=== PATIENT | female | born 1990 | race Caucasian/White ===

== ENCOUNTER 2020-01-08 20:56 | Emergency (ER) | payer MEDICAID, SELFPAY ==
[2020-01-08 20:58] VITALS: BP 134/67; PULSE 91; RESP 20; TEMP 37.2; O2SAT 98; BMI 32.3
--- NOTE | 2020-01-08 21:13 | CT_ITS ---
STUDY: CT BRAIN WITHOUT CONTRAST REASON FOR EXAM: Female, 29 years old. SEIZURE RADIATION DOSAGE (If Supplied By Facility): CTDIvol = ( 44.99 ) mGy, DLP = ( 779.24 ) mGycm TECHNIQUE: Transaxial CT imaging of the brain was performed without administration of intravenous contrast material. Individualized dose optimization techniques were used for this CT. COMPARISON: No relevant priors. FINDINGS: Normal soft tissue structures. Normal calvarium. Normal size ventricles and extra-axial spaces for the patient''s age. Normal white matter tracts of the cerebral hemispheres. Normal basal ganglia and thalami. Normal brainstem. Normal cerebellum. There is no intracranial hemorrhage. There are no findings of an acute ischemic infarction. Bilateral maxillary sinus disease. CT/Brain/Head without Contrast IMPRESSION: Normal unenhanced CT scan of the brain. Comment: If there is clinical concern for a seizure focus that is not apparent by CT, MRI should be considered if possible. Electronically Signed: Earl Saini MD at 21:56 EDT Tel , Service support ,
--- NOTE | 2020-01-08 21:14 | ED.DCSUM_ITS ---
History of Present Illness Chief Complaint: Seizure Informant: Patient, Family Onset: Today Narrative: Patient presents via EMS after abnormal behavior. She was seen at [facility] on the and diagnosed with influenza A. She had had nasal congestion and fever for the past 1 day. She was started on Tamiflu. Mother states she is to complete that medication tomorrow. Tonight she states patient was acting very abnormally. She was lying on the couch and rocking her head back and forth. She states her legs were kind of tucked up behind her and she had a constant motion. She then stated that she wanted to go to bed and got up and went to her bedroom. She had similar type behavior when laying in bed. It does not sound that the patient ever completely lost consciousness. She was able to converse with parents. Past Medical History - Allergies and Home Meds Allergies/Adverse Reactions: Allergies No Known Allergies Allergy (Verified 01/08/20 20:57) Primary Care Physician: Mariela Kan MD [Primary Care Provider] - Past Medical History: - - MRDD, anemia, cirrhosis Lives: With Family Smoking Status: Never smoker Review of Systems General: Denies: Chills, Fever Eyes: Denies: Visual changes - bilaterally ENT: Denies: Bilateral ear pain Cardiovascular: Denies: Chest pain, Palpitations Respiratory: Denies: Dyspnea, Cough Gastrointestinal: Denies: Abdominal pain, Nausea, Vomiting, Diarrhea Genitourinary: Denies: Dysuria Musculoskeletal: Denies: Extremity Pain Skin: Denies: Rash Hematologic: Denies: Easy bruising Allergy: Denies: Uticaria Physical Exam Vital Signs/Narrative: Vital Signs Temp Pulse Resp BP Pulse Ox 01/08/20 20:58 99.0 F 91 20 H 134/67 H 98 Inital Vital Signs reviewed: Yes General: Well nourished, Well developed Head: Normocephalic ENT: Moist mucous membranes, - - Poor dentition Neck: Supple Cardiovascular: Regular rate, Regular rhythm Respiratory: No distress, CTA bilaterally Abdomen: Soft, Nontender Back: Nontender Extremities: No edema. Negative for: Calf Tenderness Neurological: Alert, Oriented x3, - - All 4 extremities, alert and talkative Psychological: Normal affect Diagnostic/Tx/Re-eval Impressions Brain CT 01/08/20 21:13 IMPRESSION: Normal unenhanced CT scan of the brain. Comment: If there is clinical concern for a seizure focus that is not apparent by CT, MRI should be considered if possible. Electronically Signed: Earl Saini MD at 21:56 EDT Tel , Service support , 01/08/20 21:13 Brain/Head without Contrast [CT] Stat Laboratory Results 01/08/20 01/08/20 21:28 21:28 WBC 1.3 L* RBC 4.14 L Hgb 13.6 Hct 38.0 MCV 91.8 MCH 32.9 H MCHC 35.8 RDW Std Deviation 45.1 H RDW Coeff of Rick 13.3 Plt Count 53 L MPV 12.5 H Immature Gran % (Auto) 0.800 Neut % (Auto) 50.8 Lymph % (Auto) 35.4 [place] % (Auto) 9.2 Eos % (Auto) 3.8 Baso % (Auto) 0.0 Absolute Neuts (auto) 0.7 L Absolute Lymphs (auto) 0.46 L Nucleated RBC % 0 Differential Comment SCANNED Diff Path Review May foll Sodium 140 Potassium 3.5 Chloride 109 H Carbon Dioxide 24.0 Anion Gap 7 BUN 12 Creatinine 0.59 Estim Creat Clear Calc 119.30 Est GFR (MDRD) Af Amer 151 Est GFR (MDRD) Non-Af 125 BUN/Creatinine Ratio 20.2 H Glucose 80 Calcium 8.3 L - Medical Decision Making Patient was given 0.5 mg of IV Ativan here. On repeat evaluation she is resting more comfortably. I discussed with mother at bedside that I really believe this is a side effect from the Tamiflu. Mother will stop this medication as she only had 1 more day of medication anyway. Patient be written for 4 tabs of Ativan that mom can give her at home if symptoms return. I did explain to her that as she stops the Tamiflu medication the side effects should diminish. ED Disposition - Plan for ED Patient: Disposition: Home or Assisted Living Diagnosis: Medication side effect Prescriptions: Lorazepam [Ativan] 0.5 mg PO TID #7 tablet Referrals: Mariela Kan MD [Primary Care Provider] - 3-5 Days if not improving Additional Instructions: I believe the behavior tonight was caused by the Tamiflu you are taking for influenza. Please stop this medication. You are given a few tabs of Ativan to help with side effects to help over the next couple days. If symptoms worsen or you have any concerns, please do no hesitate to call 911.
[2020-01-08] MEDS: LORazepam 2 MG/ML Syringe 0.5 MG IV (21:26)
[2020-01-08] MEDS: 0.9% Normal Saline 1,000 ML 150 ML IV (21:33)
[2020-01-08 21:43] LABS: Absolute Lymphocyte Count 0.46 X10^3/uL (0.83-4.51); Absolute Neutrophil Count 0.7 X10^3/uL (2.0-7.7); Eosinophil# 0.05 X10^3/uL; Eosinophils% 3.8 % (0-5); Hemoglobin 13.6 g/dL (12.0-15.0); Lymphocyte # 0.46 X10^3/ul (4.0); Lymphocyte % 35.4 % (19-41); Mean Corp Hgb Conc 35.8 g/dL (32-36); Mean Corpuscular Hgb 32.9 pg (27.0-32.0); Mean Corpuscular Volume 91.8 fL (81-99); Mean Platelet Vol. 12.5 fl (6.2-12.0); Monocyte# 0.12 X10^3/uL; Monocyte% 9.2 % (0-10); NRBC Flagged by Analyzer 0 % (0-5); Neutrophil # 0.66 X10^3/uL (2.7-7.7); Neutrophil % 50.8 % (47-70); POSITIVE COUNT YES; POSITIVE DIFFERENTIAL YES; POSITIVE MORPHOLOGY YES; Platelet Count 53 K/mm3 (150-450); RBC Distribution Width CV 13.3 % (11.6-14.6); RBC Distribution Width SD 45.1 fl (35.1-43.9); Red Blood Count 4.14 M/mm3 (4.2-5.4)
[2020-01-08 21:45] LABS: Differential Indicated SCAN CRITERIA MET; White Blood Count 1.3 K/mm3 (4.4-11.0)
[2020-01-08 21:53] LABS: Anion Gap 7 (5-15); BUN 12 mg/dL (7-18); BUN/Creat Ratio 20.2 RATIO (10-20); Calcium,Total 8.3 mg/dL (8.5-10.1); Chloride 109 mmol/L (98-107); Creatinine, Serum 0.59 mg/dL (0.55-1.02); EST Glomerular Filtration Rate 125 mL/min (>60); Est Glom Filt Rate - Afr Amer 151 mL/min (>60); Glucose 80 mg/dL (74-106); Potassium 3.5 mmol/L (3.5-5.1); Sodium Level 140 mmol/L (136-145)
[2020-01-08 22:05] LABS: Differential Comment SCANNED
[2020-01-08 22:21] VITALS: BP 121/67; PULSE 98; RESP 21; O2SAT 100
[2020-01-09 09:40] LABS: Pathologist Review Reviewed
== END 2020-01-08 22:29 | disposition home or self-care (01) ==
PROVIDERS: Emergency Provider Emergency Medicine; PCP Internal Medicine
DX: R46.89 Other symptoms and signs involving appearance and behavior (principal); T37.5X5A Adverse effect of antiviral drugs, initial encounter; Y92.9 Unspecified place or not applicable; J10.1 Influenza due to other identified influenza virus with other respiratory manifestations; F79 Unspecified intellectual disabilities; K74.60 Unspecified cirrhosis of liver; Z86.2 Personal history of diseases of the blood and blood-forming organs and certain disorders involving the immune mechanism
CPT/HCPCS: 70450; 80048; 85025; 96361; 96374; 99285; J7030; A4216

== ENCOUNTER → 2020-03-05 16:23 | Outpatient (CLI) | payer MEDICAID, SELFPAY ==
--- NOTE | 2020-03-05 16:32 | MRI_ITS ---
STUDY: MRI BRAIN WITHOUT CONTRAST REASON FOR EXAM: Female, 29 years old. confusion, ? seizure, pt mentally disabled TECHNIQUE: Standardized multiplanar fat and water weighted pulse sequences were obtained. COMPARISON: CT 01/08/2020 FINDINGS: Normal size of the ventricles and extra-axial spaces for the patient''s age. Normal white matter tracts of the supratentorial brain. Normal bilateral basal ganglia. Normal thalami. There is no extra-axial fluid accumulation. Normal flow voids within the major intracranial circulation suggesting patency by spin echo criteria. Normal sella turcica, pituitary gland, infundibular stalk, optic chiasm and hypothalamus. Normal tectal plate and pineal gland. Normal midbrain, lindsay and medulla. Normal cerebellum. Normal basal cisterns. Normal bilateral temporal bones. Normal bilateral internal auditory canals. No demonstrated orbital abnormality, within the constraints of a routine brain study. Normal visualized paranasal sinuses. Normal calvarium and skull base. Normal visualized soft tissue structures. Normal visualized upper cervical spine. MRI/Brain without Contrast IMPRESSION: Normal unenhanced MRI of the brain. Electronically Signed: Earl Saini MD at 18:11 EDT Tel , Service support ,
== END ==
PROVIDERS: PCP Internal Medicine; Referring Provider Psychiatry & Neurology Neurology; Visit Provider Psychiatry & Neurology Neurology
DX: R41.0 Disorientation, unspecified (principal)
CPT/HCPCS: 70551

== ENCOUNTER 2021-02-12 18:01 | Observation (INO) | payer MEDICAID, SELFPAY ==
[2021-02-12 18:02] VITALS: BP 131/57; PULSE 86; RESP 18; TEMP 37.2; O2SAT 96; BMI 32.1
--- NOTE | 2021-02-12 18:19 | ED.RN ---
pt acting per normal self at this time.
--- NOTE | 2021-02-12 18:33 | ED.VIS.GEN ---
History of Present Illness Chief Complaint: Confusion Informant: Family Narrative: 30-year-old female that is special needs living with her mother presents with her mother for what seems to be confusion. Patient was having difficulty opening a bottle of medication and then when she got it open she appeared to be close to spilling it. She then was having trouble taking her medicine with a medicine dropper and her mother states she was laughing at it. Her mother also states that when she is asked to do something she usually performs a task and then laughs. She states that she asked her to go get milk and she brought it to the kitchen and said here is her milk mom. Patient's mother states that she would usually ask where to set it. She has not had a fever, chills, nausea, vomiting. She has been eating and drinking normally. Her mother states she has a history of a seizure disorder however she is not on any antiepileptic medication. She does take Ativan at night. She has been at work shop all day and her mother was unable to verify if she was acting strangely there. Patient's mother also states that patient's right foot is normally turned outward a little bit more than his today. Today it slightly turned inward. There has been no injury. Patient is ambulatory. Past Medical History - Allergies and Home Meds Allergies/Adverse Reactions: Allergies oseltamivir Allergy (Verified 02/12/21 18:50) Other Primary Care Physician: Mariela Kan MD [Primary Care Provider] - Prior records reviewed: Yes Past Medical History: - - Seizure disorder Surgical History: noncontributory Lives: With Family Smoking Status: Never smoker Alcohol: None Drugs: None - Family History Maternal Family History: Reports: Hypertension Paternal Family History: Reports: Hypertension Review of Systems General: Denies: Chills, Fever, Sweats Eyes: Denies: Visual changes - bilaterally, Diplopia ENT: Denies: Rhinorrhea, Sore throat Cardiovascular: Denies: Chest pain, Palpitations Respiratory: Denies: Dyspnea, Cough, Dyspnea on exertion Gastrointestinal: Denies: Abdominal pain, Nausea, Vomiting, Diarrhea, Melena, Hematochezia Genitourinary: Denies: Dysuria, Hematuria, Frequency Musculoskeletal: Denies: Back pain, Extremity Pain Skin: Denies: Rash, Wounds Neurological: Denies: Headache, Weakness, Numbness Psych: Denies: Depression, Anxiety, Suicidal thoughts, Suicidal ideations, -, - Physical Exam Vital Signs/Narrative: Vital Signs Temp Pulse Resp BP Pulse Ox 02/12/21 18:02 99 F 86 18 131/57 H 96 Inital Vital Signs reviewed: Yes General: Obese, No Acute Distress Head: Normocephalic, Atraumatic Eyes: Perrl, EOMI ENT: Moist mucous membranes, No rhinorrhea Cardiovascular: Regular rate, Regular rhythm Abdomen: Soft, Nontender, Nondistended Back: Nontender, Normal Inspection Extremities: Nontender, No edema Skin: Normal color, No rash. Negative for: Cyanosis, Diaphoresis Neurological: Alert, Oriented x3 Psychological: Normal affect, Normal Mood Diagnostic/Tx/Re-eval Clinical Impression(s) from Imaging Studies Chest X-Ray 02/12/21 18:50 IMPRESSION: Incomplete expansion of lungs with possible mild atelectasis or infiltrate in the left lung base. Mild cardiomegaly. Electronically Signed: Cristino Domínguez MD at 19:04 EDT , Service support , Brain CT 02/12/21 21:04 IMPRESSION: Normal unenhanced CT scan of the brain. Electronically Signed: Cristino Domínguez MD at 21:57 EDT , Service support , Laboratory Data 02/12/21 02/12/21 02/12/21 18:15 18:15 19:18 WBC 1.4 L* RBC 4.16 L Hgb 13.7 Hct 39.4 MCV 94.7 MCH 32.9 H MCHC 34.8 RDW Std Deviation 49.8 H RDW Coeff of Rick 14.3 Plt Count 55 L MPV 11.4 Immature Gran % (Auto) 0.000 Neut % (Auto) 40.5 L Lymph % (Auto) 42.7 H [place] % (Auto) 7.7 Eos % (Auto) 8.4 H Baso % (Auto) 0.7 Absolute Neuts (auto) 0.6 L Absolute Lymphs (auto) 0.61 L Nucleated RBC % 0 Diff Path Review May foll Sodium 140 Potassium 3.9 Chloride 107 Carbon Dioxide 29.0 Anion Gap 4 L BUN 10 Creatinine 0.60 Estim Creat Clear Calc 126.01 Est GFR (MDRD) Af Amer 148 Est GFR (MDRD) Non-Af 123 BUN/Creatinine Ratio 16.7 Glucose 85 Calcium 8.5 Total Bilirubin Direct Bilirubin AST ALT Alkaline Phosphatase Ammonia Total Protein Albumin Globulin Urine Color Yellow Urine Clarity Clear Urine pH 7.0 Ur Specific [place] 1.010 Urine Protein Negative Urine Glucose (UA) Normal Urine Ketones Negative Urine Occult Blood Negative Urine Nitrite Negative Urine Bilirubin Negative Urine Urobilinogen Normal Ur Leukocyte Esterase Negative Urine RBC 0 SEEN Urine WBC 0 SEEN Ur Squamous Epith Cells 0 SEEN Urine Bacteria 0 SEEN Urine Mucus 0 SEEN Urine Test Negative 02/12/21 02/12/21 21:08 21:08 WBC RBC Hgb Hct MCV MCH MCHC RDW Std Deviation RDW Coeff of Rick Plt Count MPV Immature Gran % (Auto) Neut % (Auto) Lymph % (Auto) [place] % (Auto) Eos % (Auto) Baso % (Auto) Absolute Neuts (auto) Absolute Lymphs (auto) Nucleated RBC % Diff Path Review Sodium Potassium Chloride Carbon Dioxide Anion Gap BUN Creatinine Estim Creat Clear Calc Est GFR (MDRD) Af Amer Est GFR (MDRD) Non-Af BUN/Creatinine Ratio Glucose Calcium Total Bilirubin 2.20 H Direct Bilirubin 0.59 H AST 44 H ALT 38 Alkaline Phosphatase 91 Ammonia 43.0 H Total Protein 5.8 L Albumin 3.2 Globulin 2.6 Urine Color Urine Clarity Urine pH Ur Specific [place] Urine Protein Urine Glucose (UA) Urine Ketones Urine Occult Blood Urine Nitrite Urine Bilirubin Urine Urobilinogen Ur Leukocyte Esterase Urine RBC Urine WBC Ur Squamous Epith Cells Urine Bacteria Urine Mucus Urine Test - Medical Decision Making 30-year-old female with weakness. I am unable to get a clear baseline what the patient can do however her mother states that she does not usually have so much weakness when walking. 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 I looked through the medical record and this appears to be a chronic issue. Chest x-ray is interpreted by myself shows no acute cardiopulmonary process. Radiology does believe there might be a small infiltrate in the left lower lobe however patient does not have any respiratory symptoms. Urinalysis is negative. Patient still having trouble ambulating so I did order CT of the brain which is negative for acute findings as interpreted by radiology. Patient does have a history it appears in [facility] of cirrhosis of some sort. I did add LFTs and an ammonia level. Her ammonia level was elevated in the 40s. I did give her some lactulose in the ED. Her bilirubin is also elevated but I do not have a baseline for this. It is unclear the patient's seizure history as well. She is not on any medication. She has not had any witnessed seizures. Impression: 1. Generalized weakness 2. Hyperammonemia 3. Elevated LFTs ED Disposition - Plan for ED Patient: Referrals: Mariela Kan MD [Primary Care Provider] -
[2021-02-12 18:42] LABS: Absolute Lymphocyte Count 0.61 X10^3/uL (0.83-4.51); Absolute Neutrophil Count 0.6 X10^3/uL (2.0-7.7); Basophil# 0.01 X10^3/uL; Basophil% 0.7 % (0-1); Eosinophil# 0.12 X10^3/uL; Eosinophils% 8.4 % (0-5); Hematocrit 39.4 % (37-47); Hemoglobin 13.7 g/dL (12.0-15.0); Lymphocyte # 0.61 X10^3/ul (0.83-4.51); Lymphocyte % 42.7 % (19-41); Mean Corp Hgb Conc 34.8 g/dL (32-36); Mean Corpuscular Hgb 32.9 pg (27.0-32.0); Mean Corpuscular Volume 94.7 fL (81-99); Mean Platelet Vol. 11.4 fl (6.2-12.0); Monocyte# 0.11 X10^3/uL; Monocyte% 7.7 % (0-10); NRBC Flagged by Analyzer 0 % (0-5); Neutrophil # 0.58 X10^3/uL (2.7-7.7); Neutrophil % 40.5 % (47-70); POSITIVE COUNT YES; POSITIVE DIFFERENTIAL YES; Platelet Count 55 K/mm3 (150-450); RBC Distribution Width CV 14.3 % (11.6-14.6); RBC Distribution Width SD 49.8 fl (35.1-43.9); Red Blood Count 4.16 M/mm3 (4.2-5.4); White Blood Count 1.4 K/mm3 (4.4-11.0)
[2021-02-12] MEDS: 0.9% Normal Saline 1,000 ML 1000 ML IV (18:43)
[2021-02-12 18:47] LABS: Differential Indicated SCAN CRITERIA MET
[2021-02-12 18:49] LABS: Anion Gap 4 (5-15); BUN 10 mg/dL (7-18); BUN/Creat Ratio 16.7 RATIO (10-20); Calcium,Total 8.5 mg/dL (8.5-10.1); Chloride 107 mmol/L (98-107); EST Glomerular Filtration Rate 123 mL/min (>60); Est Glom Filt Rate - Afr Amer 148 mL/min (>60); Estimated Creatinine Clearance 126.01 ml/min; Glucose 85 mg/dL (74-106); Potassium 3.9 mmol/L (3.5-5.1); Sodium Level 140 mmol/L (136-145)
--- NOTE | 2021-02-12 18:50 | RAD_ITS ---
STUDY: X-RAY CHEST REASON FOR EXAM: Female, 30 years old. confusion TECHNIQUE: Single AP portable view of the chest. COMPARISON: None. FINDINGS: Incomplete expansion of the lungs. Cannot exclude mild atelectasis or infiltrate in the lower left lung. No effusions. There is mild cardiac enlargement. Normal mediastinum and madie. Normal visualized pulmonary arteries. Normal visualized aortic arch and descending thoracic aorta. Normal visualized thoracic spine. Normal visualized ribs, clavicles, and shoulders. There is no demonstrated abnormality of the visualized soft tissue structures of the upper abdomen. RAD/Chest 1 View (Portable) IMPRESSION: Incomplete expansion of lungs with possible mild atelectasis or infiltrate in the left lung base. Mild cardiomegaly. Electronically Signed: Cristino Domínguez MD at 19:04 EDT , Service support ,
[2021-02-12 19:34] LABS: Bacteria 0 SEEN /hpf (None Seen); Mucous, Urine 0 SEEN /hpf (<or=2+); Red Blood Cells-Urine 0 SEEN /hpf (0-5); Squamous Epithelial Cells - UA 0 SEEN /hpf (5-10); White Blood Cells 0 SEEN /hpf (0-5)
[2021-02-12 19:35] LABS: Color, Urine Yellow (Yellow); Glucose, Dipstick Normal (Normal); Ketone-Dipstick Negative (Negative); Leukocyte Esterase-Dipstick Negative /ul (Negative); Nitrite-Dipstick Negative (Negative); Occult Blood-Urine Negative /ul (Negative); Protein-Dipstick Negative (Negative); Urine Bilirubin Dipstick Negative (Negative); Urine Clarity Clear (Clear); Urine Urobilinogen Normal (Normal)
[2021-02-12 19:44] LABS: Internal QC Validated? YES +Cl - CLEAR BKGD; Pregnancy, Urine Negative Negative
[2021-02-12 20:25] VITALS: PULSE 89; RESP 26; O2SAT 97
--- NOTE | 2021-02-12 21:04 | CT_ITS ---
STUDY: CT BRAIN WITHOUT CONTRAST REASON FOR EXAM: Female, 30 years old. altered mental status RADIATION DOSAGE (If Supplied By Facility): CTDIvol = ( 44.99 ) mGy, DLP = ( 812.98 ) mGycm TECHNIQUE: Transaxial CT imaging of the brain was performed without administration of intravenous contrast material. Individualized dose optimization techniques were used for this CT. COMPARISON: No relevant priors. FINDINGS: Normal soft tissue structures. Normal calvarium. Normal size ventricles and extra-axial spaces for the patient''s age. Normal white matter tracts of the cerebral hemispheres. Normal basal ganglia and thalami. Normal brainstem. Normal cerebellum. There is no intracranial hemorrhage. There are no findings of an acute ischemic infarction. Normal visualized paranasal sinuses. CT/Brain/Head without Contrast IMPRESSION: Normal unenhanced CT scan of the brain. Electronically Signed: Cristino Domínguez MD at 21:57 EDT , Service support ,
[2021-02-12 21:41] LABS: AST(SGOT) 44 U/L (15-37); Alanine Aminotransfer ALT/SGPT 38 U/L (13-56); Albumin, Serum 3.2 g/dL (3.2-5.0); Alkaline Phosphatase 91 U/L (45-117); Bilirubin, Direct 0.59 mg/dL (0.00-0.30); Globulin 2.6 g/dL (2.2-4.2); Protein, Total 5.8 g/dL (6.4-8.2)
[2021-02-12 22:00] VITALS: BP 120/68; PULSE 88; RESP 19; O2SAT 97
--- NOTE | 2021-02-12 22:01 | HP.PCM_ITS ---
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 Mother reports that patient was having difficulties this evening performing activities of daily living such as opening bottles of medication and getting the milk from the refrigerator. Patient is a poor historian and unable to verbalize presence of symptoms. Mother denies patient having fever, cough, nausea, vomiting. Mother reports that there have been no other alterations in patient's behavior and patient has been eating and drinking appropriately. 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 Past Medical History Past Medical History (Chronic Problems): Chronic Problems Gaucher disease (Chronic) Non-alcoholic cirrhosis (Chronic) Pancytopenia (Chronic) Developmental disorder (Chronic) Allergies oseltamivir Allergy (Verified 02/12/21 18:50) Other Home Medications: Ambulatory Orders Medication Instructions Recorded Melvi 500 mg PO DAILY 01/08/20 Lactobacillus Acidophilus 1 ea PO DAILY 01/08/20 [Acidophilus Lactobacilli] Lorazepam [Ativan] 0.5 mg PO TID #7 tab 01/08/20 Multivitamin with Minerals 1 ea PO DAILY 01/08/20 [Multiple Vitamin] Oseltamivir Phosphate [Tamiflu] 75 mg PO BID 01/08/20 Surgical History: no surgical history, noncontributory Psychiatric History: No pertinent psych hx [employer] History: No pertinent [employer] history Lives: With Family Smoking Status: Never smoker Alcohol: None Drugs: None - *Family History Maternal History Items: Hypertension Paternal History Items: Hypertension Review of Systems Constitutional: Denies: Chills, Fever, Weight Change HEENT: Denies: Head Aches, Sinus Congestion, Sinus Drainage Cardiovascular: Denies: Chest Pain, Palpitations Respiratory: Denies: Cough, Shortness of breath at rest, Sputum production Gastrointestinal: Denies: Abdominal Pain, Nausea, Vomiting Genitourinary: Denies: Dysuria Musculoskeletal: Denies: Joint Pain, Joint Tenderness Skin: Denies: Rash, Wounds Neurological: Reports: - - Change in behavior per mom. Denies: Focal weakness, Numbness, Tingling Psychiatric: Denies: Anxiety, Depression, Homicidal Ideations, Suicidal Ideations Hematologic/ Lymphatic: Denies: Easy Bruising, Easy Bleeding VTE Information - Inpt Only VTE Present on Admission: No VTE Mechan Device Prophylaxis: SCD's VTE Pharm Prophylaxis ordered?: No - Physical Exam Vitals/I&O's: Vital Signs Temp Pulse Resp BP Pulse Ox 99 F 89 26 H 131/57 H 97 02/12/21 18:02 02/12/21 20:25 02/12/21 20:25 02/12/21 18:02 02/12/21 20:25 Oxygen Delivery Method Room Air Weight: 198 lb 13.711 oz Body Mass Index (BMI) 32.1 Intake and Output for Last 24 Hours 02/10/21 02/11/21 02/12/21 23:59 23:59 23:59 Intake Total 1000 / 1000 Balance 1000 / 1000 General: Alert, Cooperative, - - Oriented to herself and mother, developmentally disabled HEENT: Atraumatic, PERRLA, EOMI, Normocephalic Neck: Supple, No JVD, Negative Carotid Bruits Lungs: Clear to auscultation, Normal air movement, No rhonchi, No wheeze, No rales Cardiovascular: Regular rate, Regular Rhythm, Normal S1, Normal S2, No murmurs Abdomen: Bowel Sounds Present, Soft, Non Tender Extremities: No edema, Capillary Refill Less than 3 Seconds, Peripheral Pulses Normal Skin: No rashes, No breakdown Musculoskeletal: No Tenderness to Palpation of Joints or Extremities Neurological: Cranial nerves II-XII grossly intact Psych/Mental Status: Normal Affect, Appropriate Laboratory Results 02/12/21 18:15: WBC 1.4 L*, RBC 4.16 L, Hgb 13.7, Hct 39.4, MCV 94.7, MCH 32.9 H , MCHC 34.8, RDW Std Deviation 49.8 H, RDW Coeff of Rick 14.3, Plt Count 55 L, MPV 11.4, Immature Gran % (Auto) 0.000, Neut % (Auto) 40.5 L, Lymph % (Auto) 42.7 H, [place] % (Auto) 7.7, Eos % (Auto) 8.4 H, Baso % (Auto) 0.7, Absolute Neuts (auto) 0.6 L, Absolute Lymphs (auto) 0.61 L, Nucleated RBC % 0, Diff Path Review February02/12/21 18:15: Sodium 140, Potassium 3.9, Chloride 107, Carbon Dioxide 29.0, Anion Gap 4 L, BUN 10, Creatinine 0.60, Estim Creat Clear Calc 126.01, Est GFR (MDRD) Af Amer 148, Est GFR (MDRD) Non-Af 123, BUN/Creatinine Ratio 16.7, Glucose 85, Calcium 8.5 02/12/21 19:18: Urine Color Yellow, Urine Clarity Clear, Urine pH 7.0, Ur Specific [place] 1.010, Urine Protein Negative, Urine Glucose (UA) Normal, Urine Ketones Negative, Urine Occult Blood Negative, Urine Nitrite Negative, Urine Bilirubin Negative, Urine Urobilinogen Normal, Ur Leukocyte Esterase Negative, Urine RBC 0 SEEN, Urine WBC 0 SEEN, Ur Squamous Epith Cells 0 SEEN, Urine Bacteria 0 SEEN, Urine Mucus 0 SEEN, Urine Test Negative 02/12/21 21:08: Total Bilirubin 2.20 H, Direct Bilirubin 0.59 H, AST 44 H, ALT 38, Alkaline Phosphatase 91, Total Protein 5.8 L, Albumin 3.2, Globulin 2.6 02/12/21 21:08: Ammonia 43.0 H Assessment/Plan All Active Problems Behavior concern (Acute) History of seizure (Resolved) 1. Behavior concern -Per report from mother patient not behaving normally for patient, will complete work-up for TIA versus seizure versus behavioral -MRI brain, MRI head and neck ordered for TIA/stroke rule out -EEG ordered due to patient history of seizures and abnormal behavior -will check CBC, BMP, TSH, magnesium, phosphorus, lipids, hemoglobin A1c -PT, OT, ST to eval and treat -Case management consulted -PCU for continuous cardiac monitoring -NIH every 4 hours 2. 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 -No treatment currently available, patient follows with Dr. Kan for management of chronic diseases 3. Nonalcoholic cirrhosis -Secondary to #2 -Current AST ALT and alkaline phosphatase consistent with patient historical values 4. Pancytopenia -Secondary to #2 -Chronic, would recommend follow-up with heme-onc upon discharge -Consistent with previous blood work 5. Developmental disorder -Secondary to #2 -Patient lives at home with her parents and other developmentally disabled siblings 6. History of seizure -We will obtain EEG in a.m. -Patient not currently on any antiepileptics DVT prophylaxis-see SCDs This patient was seen by TIA Rush under the supervision of Dr. Araujo.
[2021-02-12 22:54] VITALS: BP 128/64; PULSE 89; RESP 20; TEMP 37.5; O2SAT 96
[2021-02-12] MEDS: Lactulose 20 GM/30 ML UDC 10 GM PO (22:59)
--- NOTE | 2021-02-12 23:08 | MRI_ITS ---
STUDY: MRA NECK WITHOUT CONTRAST REASON FOR EXAM: Female, 30 years old. CVA, confusion, hx mrdd TECHNIQUE: Source images were obtained, MIPs were performed. The study was performed unenhanced. COMPARISON: None. FINDINGS: RIGHT CAROTID ARTERIES: Normal right common carotid artery (CCA). Normal right common carotid bulb. Normal origin of the right internal carotid (ICA) artery without a hemodynamically significant stenosis. Normal visualized cervical portion of the right internal carotid artery. Normal origin of the right external carotid artery (ECA). LEFT CAROTID ARTERIES: Normal left common carotid artery (CCA). Normal left common carotid bulb. Normal origin of the left internal carotid (ICA) artery without a hemodynamically significant stenosis. Normal visualized cervical portion of the left internal carotid artery. Normal origin of the left external carotid artery (ECA). VERTEBRAL ARTERIES: Normal antegrade flow within the bilateral vertebral artery without a hemodynamically significant stenosis. MRI/MRA Neck without Contrast IMPRESSION: Normal bilateral cervical carotid and vertebral arteries. Electronically Signed: Jason Wesley MD at 15:06 EDT Tel , Service support ,
--- NOTE | 2021-02-12 23:08 | MRI_ITS ---
STUDY: MRA OF THE HEAD WITHOUT CONTRAST REASON FOR EXAM: Female, 30 years old. CVA, confusion, hx MRDD TECHNIQUE: 3-D dlie-dz-mhhtps (TOF) imaging was performed with MIPs. The study was performed unenhanced. COMPARISON: None. FINDINGS: Normal bilateral petrous carotid arteries. Normal right cavernous carotid artery with a normal supraclinoid bifurcation. Normal left cavernous carotid artery with a normal supraclinoid bifurcation. Normal right A1 segments of the anterior cerebral artery. Normal left A1 segments of the anterior cerebral artery. Normal intact anterior communicating artery (ACOM). Normal bilateral A2 segments of the anterior cerebral arteries. Normal right M1 and M2 segments of the middle cerebral arteries, with a normal M1 bifurcation. Normal left M1 and M2 segments of the middle cerebral arteries, with a normal M1 bifurcation. Normal right posterior communicating artery (PCOM). Normal left posterior communicating artery (PCOM). Normal bilateral vertebral arteries. Normal basilar artery with a normal basilar bifurcation. The visualized bilateral superior cerebellar (SCA) arteries are normal. Normal bilateral P1, P2 and visualized P3 segments of the posterior cerebral arteries. There is no demonstrated aneurysm of the ambler of [place]. There is no major vessel occlusion or hemodynamically significant stenosis. There is no demonstrated abnormality of the visualized brain. MRI/MRA Head ONLY without Contrast IMPRESSION: Normal MRA of the head Electronically Signed: Jason Wesley MD at 15:05 EDT Tel , Service support ,
--- NOTE | 2021-02-12 23:08 | MRI_ITS ---
STUDY: MRI BRAIN WITHOUT CONTRAST REASON FOR EXAM: Female, 30 years old. CVA, confusion, hx mrdd TECHNIQUE: Standardized multiplanar fat and water weighted pulse sequences were obtained. COMPARISON: CT 02/12/2021, MRI 03/05/2020 FINDINGS: Normal size of the ventricles and extra-axial spaces for the patient''s age. Normal white matter tracts of the supratentorial brain. There is no evidence for recent intracranial ischemia or other cause of cytotoxic edema on diffusion weighted imaging (DWI). Normal T2* images of the brain without demonstrated susceptibility artifact. There is no demonstrated hemosiderin stain. Normal bilateral basal ganglia. Normal thalami. There is no extra-axial fluid accumulation. Normal flow voids within the major intracranial circulation suggesting patency by spin echo criteria. Normal sella turcica, pituitary gland, infundibular stalk, optic chiasm and hypothalamus. Normal tectal plate and pineal gland. Normal midbrain, lindsay and medulla. Normal cerebellum. Normal basal cisterns. Normal bilateral temporal bones. Normal bilateral internal auditory canals. No demonstrated orbital abnormality, within the constraints of a routine brain study. Normal visualized paranasal sinuses. Normal calvarium and skull base. Normal visualized soft tissue structures. Normal visualized upper cervical spine. MRI/Brain without Contrast IMPRESSION: Normal unenhanced MRI of the brain. Electronically Signed: Jason Wseley MD at 15:03 EDT Tel , Service support ,
[2021-02-12 23:15] VITALS: BMI 30.7
[2021-02-12 23:30] VITALS: BP 109/59; PULSE 95; RESP 18; TEMP 37.2; O2SAT 96
[2021-02-12 23:33] VITALS: PULSE 90
[2021-02-12 23:38] LABS: Hemoglobin A1c 4.4 % (3.8-5.6)
[2021-02-12 23:40] LABS: Magnesium 1.6 mg/dL (1.6-2.6); Phosphorus 2.6 mg/dL (2.5-4.9); Thyroid Stim Hormone (TSH) 2.82 uIU/mL (0.358-3.74)
[2021-02-13] VITALS (12 sets, daily range): BP systolic 102–121; BP diastolic 50–64; PULSE 71–93; RESP 14–23; TEMP 36.9–37.5; O2SAT 93–97; BMI 30.7
[2021-02-13] MEDS: LORazepam 0.5 MG Tablet PO (00:44)
[2021-02-13] MEDS: Sertraline 50 MG Tablet 25 MG PO (00:49)
[2021-02-13 05:42] LABS: Absolute Neutrophil Count 0.6 X10^3/uL (2.0-7.7); Basophil# 0.01 X10^3/uL; Basophil% 0.8 % (0-1); Eosinophil# 0.06 X10^3/uL; Eosinophils% 4.7 % (0-5); Hematocrit 35.1 % (37-47); Hemoglobin 11.8 g/dL (12.0-15.0); Lymphocyte % 31.5 % (19-41); Mean Corp Hgb Conc 33.6 g/dL (32-36); Mean Corpuscular Hgb 32.7 pg (27.0-32.0); Mean Corpuscular Volume 97.2 fL (81-99); Mean Platelet Vol. 11.1 fl (6.2-12.0); Monocyte# 0.15 X10^3/uL; Monocyte% 11.8 % (0-10); NRBC Flagged by Analyzer 0 % (0-5); Neutrophil # 0.64 X10^3/uL (2.7-7.7); Neutrophil % 50.4 % (47-70); POSITIVE COUNT YES; POSITIVE DIFFERENTIAL YES; RBC Distribution Width CV 14.3 % (11.6-14.6); Red Blood Count 3.61 M/mm3 (4.2-5.4)
[2021-02-13 05:45] LABS: White Blood Count 1.3 K/mm3 (4.4-11.0)
[2021-02-13 05:46] LABS: Differential Indicated SCAN CRITERIA MET; Platelet Count 49 K/mm3 (150-450)
[2021-02-13 06:09] LABS: ALB/GLOB Ratio 1.1 RATIO (0.9-2.4); AST(SGOT) 42 U/L (15-37); Alanine Aminotransfer ALT/SGPT 38 U/L (13-56); Albumin, Serum 2.8 g/dL (3.2-5.0); Alkaline Phosphatase 81 U/L (45-117); Anion Gap 4 (5-15); BUN 9 mg/dL (7-18); BUN/Creat Ratio 22.3 RATIO (10-20); Calcium,Total 8.1 mg/dL (8.5-10.1); Chloride 111 mmol/L (98-107); Cholesterol 87 mg/dL (200); EST Glomerular Filtration Rate 194 mL/min (>60); Est Glom Filt Rate - Afr Amer 235 mL/min (>60); Estimated Creatinine Clearance 189.02 ml/min; Globulin 2.6 g/dL (2.2-4.2); Glucose 79 mg/dL (74-106); High Density Lipoprotein 47 mg/dL; Potassium 3.8 mmol/L (3.5-5.1); Protein, Total 5.4 g/dL (6.4-8.2); Sodium Level 140 mmol/L (136-145); Triglycerides 58 mg/dL; Very Low Density Lipoprotein 12 mg/dL (5-40)
[2021-02-13] MEDS: Aspirin E.C. 81 MG Tablet PO (07:57)
--- NOTE | 2021-02-13 09:21 | TELEMED_ITS ---
[facility] has confirmed receipt of a request for visit. This document confirms receipt of the order initiating the consult. To find the results of the consultation, please view the patient's reports for the scanned Telemed Consult.
[2021-02-13] MEDS: LORazepam 2 MG/ML Syringe 1 MG IV (11:57)
[2021-02-13] MEDS: 0.9% Saline Lock 10 ML Syringe IV (11:57)
[2021-02-13 13:53] LABS: Pathologist Review Reviewed
[2021-02-13 13:56] LABS: Pathologist Review Reviewed
--- NOTE | 2021-02-13 15:11 | DCINST_ITS ---
- Discharge Diagnoses Current Active Problems: Current Active and Chronic Problems Gaucher disease (Chronic) Non-alcoholic cirrhosis (Chronic) Pancytopenia (Chronic) Developmental disorder (Chronic) Behavior concern (Acute) You will use the following diet at home:: No restrictions Discharge Activity: Return to Normal Activity Call your doctor if you observe: Fever of 101 or Higher, Shortness of breath, Dizziness, Fainting spells, Chest pain Allergies/Adverse Reactions: Allergies oseltamivir Allergy (Verified 02/12/21 18:50) Other Medications to take at Discharge Melvi 500 mg PO DAILY 01/08/20 Lactobacillus Acidophilus [Acidophilus Lactobacilli] 1 ea PO DAILY 01/08/20 Lorazepam [Ativan] 0.5 mg PO TID #7 tab 01/08/20 Multivitamin with Minerals [Multiple Vitamin] 1 ea PO DAILY 01/08/20 Oseltamivir Phosphate [Tamiflu] 75 mg PO BID 01/08/20 Sertraline HCl 25 mg PO QHS 02/12/21 Primary Care Physician: Mariela Kan MD [Primary Care Provider] - Please follow up with your Primary Care Physician in: 1 Week Test Results: Test results from this visit will be discussed in further detail at your follow- up appointment, if applicable. Proposed Discharge Date: 02/13/21
--- NOTE | 2021-02-13 15:12 | PCM.DC.SUM ---
<Yady Clark [employer]IE[employer] - Last Filed: 02/13/21 15:31> Discharge Date and Diagnosis - Problem List Patient Problems: Active and Suspected Problems Behavior concern (Acute) Date of Admission: 02/12/21 Date of Discharge: 02/13/21 - Primary Discharge Diagnosis Acute Problems: Active Problems 1. Behavioral change 2. Gaucher disease 3. Nonalcoholic cirrhosis 4. Pancytopenia 5. History of seizure 6. Developmental disorder - Secondary Discharge Diagnosis Chronic Problems: Chronic Problems Gaucher disease (Chronic) Non-alcoholic cirrhosis (Chronic) Pancytopenia (Chronic) Developmental disorder (Chronic) Hospital Course and Treatment Imaging Results: Diagnostic Data Chest X-Ray 02/12/21 18:50 IMPRESSION: Incomplete expansion of lungs with possible mild atelectasis or infiltrate in the left lung base. Mild cardiomegaly. Electronically Signed: Cristino Domínguez MD at 19:04 EDT , Service support , Brain CT 02/12/21 21:04 IMPRESSION: Normal unenhanced CT scan of the brain. Electronically Signed: Cristino Domínguez MD at 21:57 EDT , Service support , Brain MRI 02/12/21 23:08 IMPRESSION: Normal unenhanced MRI of the brain. Electronically Signed: Jason Wesley MD at 15:03 EDT Tel , Service support , Head MRA 02/12/21 23:08 IMPRESSION: Normal MRA of the head Electronically Signed: Jason Wesley MD at 15:05 EDT Tel , Service support , Neck MRA 02/12/21 23:08 IMPRESSION: Normal bilateral cervical carotid and vertebral arteries. Electronically Signed: Jason Wesley MD at 15:06 EDT Tel , Service support , Operations: None Procedures: Electroencephalogram Summary of Care Provided: The patient is a 30 year old F admitted 02/12/2021 due to abnormal behavior. 1. Behavioral change-EEG unremarkable. MRI of brain, MRA of head and neck unremarkable. Patient has not had further symptoms. Suspect behavioral related. Follow-up with PCP in 1 week. 2. Gaucher disease outpatient follow-up.- 3. Nonalcoholic cirrhosis-continue outpatient follow-up. 4. Pancytopenia-chronic, stable. 5. History of seizure-EEG unremarkable. Not on antiepileptic regimen. 6. Developmental disorder Patient seen and examined prior to discharge. Physical assessment as noted below. Patient is stable for discharge with follow up recommendations as noted above. This patient was seen by TIA Nair under the supervision of Dr. Carlson. Patient Problems: Active and Suspected Problems Behavior concern (Acute) - Physical Exam Vitals/I&O's: Vital Signs Temp Pulse Resp BP Pulse Ox 99.5 F H 73 14 109/57 L 96 02/13/21 10:30 02/13/21 13:04 02/13/21 13:04 02/13/21 13:04 02/13/21 13:04 Oxygen Delivery Method Room Air Weight: 190 lb 7.67 oz Body Mass Index (BMI) 30.7 Intake and Output for Last 24 Hours 02/11/21 02/12/21 02/13/21 23:59 23:59 23:59 Intake Total 1000 / 1000 400 / 400 Balance 1000 / 1000 400 / 400 General: Alert, Oriented x3, Cooperative HEENT: Atraumatic, PERRLA, EOMI, Normocephalic Neck: Supple, No JVD, Negative Carotid Bruits Lungs: Clear to auscultation, Normal air movement Cardiovascular: Regular rate, No murmurs Abdomen: Bowel Sounds Present, Soft, Non Tender, Non-Distended Extremities: No clubbing, No cyanosis, No edema, Capillary Refill Less than 3 Seconds Skin: No rashes, No breakdown Musculoskeletal: No Tenderness to Palpation of Joints or Extremities Neurological: Cranial nerves II-XII grossly intact, Neuro grossly intact Psych/Mental Status: Normal Affect, Appropriate Laboratory Results 02/12/21 18:15: WBC 1.4 L*, RBC 4.16 L, Hgb 13.7, Hct 39.4, MCV 94.7, MCH 32.9 H, MCHC 34.8, RDW Std Deviation 49.8 H, RDW Coeff of Rick 14.3, Plt Count 55 L, MPV 11.4, Immature Gran % (Auto) 0.000, Neut % (Auto) 40.5 L, Lymph % (Auto) 42.7 H, Mcmullen % (Auto) 7.7, Eos % (Auto) 8.4 H, Baso % (Auto) 0.7, Absolute Neuts (auto) 0.6 L, Absolute Lymphs (auto) 0.61 L, Nucleated RBC % 0, Diff Path Review Reviewed 02/12/21 18:15: Sodium 140, Potassium 3.9, Chloride 107, Carbon Dioxide 29.0, Anion Gap 4 L, BUN 10, Creatinine 0.60, Estim Creat Clear Calc 126.01, Est GFR (MDRD) Af Amer 148, Est GFR (MDRD) Non-Af 123, BUN/Creatinine Ratio 16.7, Glucose 85, Calcium 8.5 02/12/21 18:15: Hemoglobin A1c 4.4 02/12/21 19:18: Urine Color Yellow, Urine Clarity Clear, Urine pH 7.0, Ur Specific [place] 1.010, Urine Protein Negative, Urine Glucose (UA) Normal, Urine Ketones Negative, Urine Occult Blood Negative, Urine Nitrite Negative, Urine Bilirubin Negative, Urine Urobilinogen Normal, Ur Leukocyte Esterase Negative, Urine RBC 0 SEEN, Urine WBC 0 SEEN, Ur Squamous Epith Cells 0 SEEN, Urine Bacteria 0 SEEN, Urine Mucus 0 SEEN, Urine Test Negative 02/12/21 21:08: Total Bilirubin 2.20 H, Direct Bilirubin 0.59 H, AST 44 H, ALT 38, Alkaline Phosphatase 91, Total Protein 5.8 L, Albumin 3.2, Globulin 2.6 02/12/21 21:08: Ammonia 43.0 H 02/12/21 21:08: Phosphorus 2.6, Magnesium 1.6, Troponin I < 0.015, TSH 2.82 02/13/21 05:34: WBC 1.3 L*, RBC 3.61 L, Hgb 11.8 L, Hct 35.1 L, MCV 97.2, MCH 32.7 H, MCHC 33.6, RDW Std Deviation 51.0 H, RDW Coeff of Rick 14.3, Plt Count 49 L*, MPV 11.1, Immature Gran % (Auto) 0.800, Neut % (Auto) 50.4, Lymph % (Auto) 31.5, Mcmullen % (Auto) 11.8 H, Eos % (Auto) 4.7, Baso % (Auto) 0.8, Absolute Neuts (auto) 0.6 L, Absolute Lymphs (auto) 0.40 L, Nucleated RBC % 0, Diff Path Review Reviewed 02/13/21 05:34: Sodium 140, Potassium 3.8, Chloride 111 H, Carbon Dioxide 25.0, Anion Gap 4 L, BUN 9, Creatinine 0.40 L, Estim Creat Clear Calc 189.02, Est GFR (MDRD) Af Amer 235, Est GFR (MDRD) Non-Af 194, BUN/Creatinine Ratio 22.3 H, Glucose 79, Calcium 8.1 L, Total Bilirubin 1.80 H, AST 42 H, ALT 38, Alkaline Phosphatase 81, Total Protein 5.4 L, Albumin 2.8 L, Globulin 2.6, Albumin/Globulin Ratio 1.1, Triglycerides 58, Cholesterol 87, LDL Cholesterol 28, VLDL Cholesterol 12, HDL Cholesterol 47 02/13/21 05:34: Ammonia 52.0 H Current Medications Acetaminophen (Acetaminophen 325 Mg Tablet) 650 mg PO Q6H PRN PRN PRN Reason: Pain Score 1-10/Temp > 100.7 F Aspirin (Aspirin E.C. 81 Mg Tablet) 81 mg PO DAILY@0800 [facility] Last Admin: 02/13/21 07:57 Dose: 81 mg Documented by: Hydralazine HCl (Hydralazine 20 Mg/Ml Vial) 5 mg IV Q30M PRN PRN Reason: to maintain BP goals Labetalol HCl (Labetalol (Prefilled) 20 Mg/4 Ml) 10 - 20 mg IV Q10M PRN PRN PRN Reason: to Maintain BP Goals Lorazepam (Lorazepam 0.5 Mg Tablet) 0.5 mg PO TID PRN PRN PRN Reason: ANXIETY Ondansetron HCl (Ondansetron 4 Mg/2 Ml Vial) 4 mg IV Q8H PRN PRN PRN Reason: NAUSEA/VOMITING Sertraline HCl (Sertraline 50 Mg Tablet) 25 mg PO QHS [facility] Last Admin: 02/13/21 00:49 Dose: 25 mg Documented by: Sodium Chloride (0.9% Saline Lock 10 Ml Syringe) 10 - 40 ml IV UD PRN PRN Reason: SALINE FLUSH Last Admin: 02/13/21 11:57 Dose: 10 ml Documented by: Discharge Diet: No Restrictions Discharge Activity: Return to Normal Activity Call your doctor if you observe: Fever of 101 or Higher, Shortness of breath, Dizziness, Fainting spells, Chest pain Home Medications: Medications to take at Discharge Melvi 500 mg PO DAILY 01/08/20 Lactobacillus Acidophilus [Acidophilus Lactobacilli] 1 ea PO DAILY 01/08/20 Lorazepam [Ativan] 0.5 mg PO TID #7 tab 01/08/20 Multivitamin with Minerals [Multiple Vitamin] 1 ea PO DAILY 01/08/20 Oseltamivir Phosphate [Tamiflu] 75 mg PO BID 01/08/20 Sertraline HCl 25 mg PO QHS 02/12/21 Primary Care Physician: Mariela Kan MD [Primary Care Provider] - Please follow up with your Primary Care Physician in: 1 Week Disposition: Home Minutes spent on discharge:: 35 Patient Condition:: Stable Medical Necessity - Tobacco Use Smoking Status: Never smoker Meaningful Use Info Meaningful Use Diagnoses (Choose all that apply): None applicable <Roberto Carlson - Last Filed: 02/13/21 16:48> Discharge Date and Diagnosis - Primary Discharge Diagnosis Acute Problems: Active Problems Behavior concern (Acute) - Secondary Discharge Diagnosis Chronic Problems: Chronic Problems Gaucher disease (Chronic) Non-alcoholic cirrhosis (Chronic) Pancytopenia (Chronic) Developmental disorder (Chronic) Hospital Course and Treatment Summary of Care Provided: This patient was seen in conjunction with [employer] CHIEFYady. I have independently interviewed and examined the patient and reviewed pertinent history, examination findings, laboratory and plan of management. I have reviewed the note and agree with the documented findings with the few additional points. 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 As per parents she never had seizure disorder but patient has history of developmental disorder, Gaucher's disease which is complication of seizure. MRI and MRA of head and neck was unremarkable. Chronic pancytopenia. Chest x-ray shows lung bases atelectasis. Discharge medication reconciliation done. Discharge follow-up instructions completed. Discharge process discussed with the patient and all questions were answered to patient's satisfaction. Charge plan discussed with the parents present in the room I have discussed my assessment with [employer]IEF, Yady and orders have been reviewed. Clinical Impression(s) from Imaging Studies Chest X-Ray 02/12/21 18:50 IMPRESSION: Incomplete expansion of lungs with possible mild atelectasis or infiltrate in the left lung base. Mild cardiomegaly. Electronically Signed: Cristino Domínguez MD at 19:04 EDT , Service support , Brain CT 02/12/21 21:04 IMPRESSION: Normal unenhanced CT scan of the brain. Electronically Signed: Cristino Domínguez MD at 21:57 EDT , Service support , Brain MRI 02/12/21 23:08 IMPRESSION: Normal unenhanced MRI of the brain. Electronically Signed: Jason Wesley MD at 15:03 EDT Tel , Service support , Head MRA 02/12/21 23:08 IMPRESSION: Normal MRA of the head Electronically Signed: Jason Wesley MD at 15:05 EDT Tel , Service support , Neck MRA 02/12/21 23:08 IMPRESSION: Normal bilateral cervical carotid and vertebral arteries. Electronically Signed: Jason Wesley MD at 15:06 EDT Tel , Service support , [] Objective: Seen and examined. Patient has bladder and bowel continent. Can do basic activities of living by herself. Denies any prior history of seizure Physical exam General: Alert, Oriented x3, Cooperative, mild cognitive deficit HEENT: Atraumatic, PERRLA, EOMI, Normocephalic Oral: No Gingival or Mucosal Lesions/ Ulcerations Neck: Supple, No JVD, Negative Carotid Bruits Lungs: Air entry diminished in bilateral lung bases. No crepitation/rhonchi Cardiovascular: Regular rate, Regular Rhythm, Normal S1, Normal S2, No murmurs Abdomen: Bowel Sounds Present, Soft, Non Tender, Non-Distended : No renal angle tenderness. No suprapubic tenderness. Extremities: No edema, Capillary Refill Less than 3 Seconds Skin: No rashes, No breakdown Musculoskeletal: No Tenderness to Palpation of Joints or Extremities Neurological: Cranial nerves II-XII grossly intact, Deep Tendon Reflexes 2+/4 and Symmetrical, Neuro grossly intact Psych/Mental Status: Mild cognitive deficit - Physical Exam Vitals/I&O's: Vital Signs Temp Pulse Resp BP Pulse Ox 99.5 F H 89 14 109/57 L 96 02/13/21 10:30 02/13/21 15:00 02/13/21 13:04 02/13/21 13:04 02/13/21 13:04 Oxygen Delivery Method Room Air Weight: 190 lb 7.67 oz Body Mass Index (BMI) 30.7 Intake and Output for Last 24 Hours 02/11/21 02/12/21 02/13/21 23:59 23:59 23:59 Intake Total 1000 / 1000 400 / 400 Balance 1000 / 1000 400 / 400 Laboratory Results 02/12/21 18:15: WBC 1.4 L*, RBC 4.16 L, Hgb 13.7, Hct 39.4, MCV 94.7, MCH 32.9 H, MCHC 34.8, RDW Std Deviation 49.8 H, RDW Coeff of Rick 14.3, Plt Count 55 L, MPV 11.4, Immature Gran % (Auto) 0.000, Neut % (Auto) 40.5 L, Lymph % (Auto) 42.7 H, Mcmullen % (Auto) 7.7, Eos % (Auto) 8.4 H, Baso % (Auto) 0.7, Absolute Neuts (auto) 0.6 L, Absolute Lymphs (auto) 0.61 L, Nucleated RBC % 0, Diff Path Review Reviewed 02/12/21 18:15: Sodium 140, Potassium 3.9, Chloride 107, Carbon Dioxide 29.0, Anion Gap 4 L, BUN 10, Creatinine 0.60, Estim Creat Clear Calc 126.01, Est GFR (MDRD) Af Amer 148, Est GFR (MDRD) Non-Af 123, BUN/Creatinine Ratio 16.7, Glucose 85, Calcium 8.5 02/12/21 18:15: Hemoglobin A1c 4.4 02/12/21 19:18: Urine Color Yellow, Urine Clarity Clear, Urine pH 7.0, Ur Specific [place] 1.010, Urine Protein Negative, Urine Glucose (UA) Normal, Urine Ketones Negative, Urine Occult Blood Negative, Urine Nitrite Negative, Urine Bilirubin Negative, Urine Urobilinogen Normal, Ur Leukocyte Esterase Negative, Urine RBC 0 SEEN, Urine WBC 0 SEEN, Ur Squamous Epith Cells 0 SEEN, Urine Bacteria 0 SEEN, Urine Mucus 0 SEEN, Urine Test Negative 02/12/21 21:08: Total Bilirubin 2.20 H, Direct Bilirubin 0.59 H, AST 44 H, ALT 38, Alkaline Phosphatase 91, Total Protein 5.8 L, Albumin 3.2, Globulin 2.6 02/12/21 21:08: Ammonia 43.0 H 02/12/21 21:08: Phosphorus 2.6, Magnesium 1.6, Troponin I < 0.015, TSH 2.82 02/13/21 05:34: WBC 1.3 L*, RBC 3.61 L, Hgb 11.8 L, Hct 35.1 L, MCV 97.2, MCH 32.7 H, MCHC 33.6, RDW Std Deviation 51.0 H, RDW Coeff of Rick 14.3, Plt Count 49 L*, MPV 11.1, Immature Gran % (Auto) 0.800, Neut % (Auto) 50.4, Lymph % (Auto) 31.5, Mcmullen % (Auto) 11.8 H, Eos % (Auto) 4.7, Baso % (Auto) 0.8, Absolute Neuts (auto) 0.6 L, Absolute Lymphs (auto) 0.40 L, Nucleated RBC % 0, Diff Path Review Reviewed 02/13/21 05:34: Sodium 140, Potassium 3.8, Chloride 111 H, Carbon Dioxide 25.0, Anion Gap 4 L, BUN 9, Creatinine 0.40 L, Estim Creat Clear Calc 189.02, Est GFR (MDRD) Af Amer 235, Est GFR (MDRD) Non-Af 194, BUN/Creatinine Ratio 22.3 H, Glucose 79, Calcium 8.1 L, Total Bilirubin 1.80 H, AST 42 H, ALT 38, Alkaline Phosphatase 81, Total Protein 5.4 L, Albumin 2.8 L, Globulin 2.6, Albumin/Globulin Ratio 1.1, Triglycerides 58, Cholesterol 87, LDL Cholesterol 28, VLDL Cholesterol 12, HDL Cholesterol 47 02/13/21 05:34: Ammonia 52.0 H Current Medications Acetaminophen (Acetaminophen 325 Mg Tablet) 650 mg PO Q6H PRN PRN PRN Reason: Pain Score 1-10/Temp > 100.7 F Aspirin (Aspirin E.C. 81 Mg Tablet) 81 mg PO DAILY@0800 [facility] Last Admin: 02/13/21 07:57 Dose: 81 mg Documented by: Hydralazine HCl (Hydralazine 20 Mg/Ml Vial) 5 mg IV Q30M PRN PRN Reason: to maintain BP goals Labetalol HCl (Labetalol (Prefilled) 20 Mg/4 Ml) 10 - 20 mg IV Q10M PRN PRN PRN Reason: to Maintain BP Goals Lorazepam (Lorazepam 0.5 Mg Tablet) 0.5 mg PO TID PRN PRN PRN Reason: ANXIETY Ondansetron HCl (Ondansetron 4 Mg/2 Ml Vial) 4 mg IV Q8H PRN PRN PRN Reason: NAUSEA/VOMITING Sertraline HCl (Sertraline 50 Mg Tablet) 25 mg PO QHS [facility] Last Admin: 02/13/21 00:49 Dose: 25 mg Documented by: Sodium Chloride (0.9% Saline Lock 10 Ml Syringe) 10 - 40 ml IV UD PRN PRN Reason: SALINE FLUSH Last Admin: 02/13/21 11:57 Dose: 10 ml Documented by: OBSV E&M: [id number] Observation care discharge
== END 2021-02-13 15:12 | disposition home or self-care (01) ==
LOC: ED 18:51 → PCU 23:02
PROVIDERS: Nurse Practitioner Family; Admitting Provider Family Medicine; Emergency Provider Student in an Organized Health Care Education/Training Program; PCP Internal Medicine; Visit Provider Internal Medicine
DX: R41.82 Altered mental status, unspecified (principal); K74.60 Unspecified cirrhosis of liver; D61.818 Other pancytopenia; E75.22 Gaucher disease; F89 Unspecified disorder of psychological development; R53.1 Weakness; F41.9 Anxiety disorder, unspecified; F32.9 Major depressive disorder, single episode, unspecified; R47.01 Aphasia; R47.1 Dysarthria and anarthria; Z79.899 Other long term (current) drug therapy
CPT/HCPCS: 70450; 70544; 70547; 70551; 71045; 80048; 80053; 80061; 80076; 81001; 81025; 82140; 83036; 83735; 84100; 84443; 84484; 85025; 92523; 92610; 95819; 96361; 96374; 97802; 99218; 99285; J7030; A4216; G0378

== ENCOUNTER 2021-02-20 20:59 | Emergency (ER) | payer MEDICAID, SELFPAY ==
[2021-02-13 08:30] VITALS: BMI 30.7
[2021-02-20 21:01] VITALS: BP 118/67; PULSE 100; RESP 24; TEMP 37.1; O2SAT 95; BMI 31.8
--- NOTE | 2021-02-20 21:40 | RAD_ITS ---
HISTORY: sob EXAM: XR Chest 1 View: COMPARISON: February 12, 2021 FINDINGS: # of images incl. paperwork: 1 Indistinctness of the left hilum with increased density over the left lung is identical in appearance to the previous study. Lungs remain slightly hypoexpanded Heart is not enlarged. No acute osseous pathology perceived. Pulmonary vascularity is slightly indistinct in the left perihilar region. No effusions. RAD/Chest 1 View (Portable) IMPRESSION: Persistent indistinctness of the left hilar vascularity and some increased density superimposed over the heart in the left mid and lower lung. Unchanged pulmonary hypoexpansion. This may represent persistent left lung airspace disease such as pneumonia. at 2204 Reported and signed by: Iván Gibbons MD Electronically Signed: Iván Gibbons MD at 22:03 EDT Tel , Service support ,
--- NOTE | 2021-02-20 21:49 | EDS_ITS ---
HPI History of Present Illness Chief Complaint: Mental Status Change Narrative Narrative: Patient presents with transient confusion and mental status changes. She has a history of Gaucher disease, she has developmental delay, she was more confused than normal, this has been attributed to hyperammonemia in the past. Apparently she is also quite weak and the family were unable to get her to ambulate today due to the weakness. No seizure-like activity. This has happened before in fact it happened a week ago. No reported fever or chills. Patient can tell me that she is not in any pain but can tell me little else. Per her mother she is now back to baseline. Past medical history: Reviewed, as in the chart Medications: Reviewed Social history: Noncontributory Review of systems: Unable secondary to patient's chronic debility [facility] Medical History (Updated 02/20/21 @ 23:[address] Orestes Guerrero MD) Cirrhosis Home Medications Lactobacillus acidophilus 1 ea PO DAILY 01/08/20 [History Last Taken Unknown] michelle (Zingiber officinalis) 500 mg PO DAILY 01/08/20 [History Last Taken Unknown] lorazepam 0.5 mg PO TID #7 tab 01/08/20 [Rx Last Taken Unknown] multivitamin with minerals 1 ea PO DAILY 01/08/20 [History Last Taken Unknown] sertraline 25 mg PO QHS 02/12/21 [History Last Taken Unknown] Allergy/AdvReac Type Severity Reaction Status Date / Time oseltamivir Allergy Other Verified 02/20/21 21:09 Social History Smoking Status: Never smoker EXAM Physical Exam Narrative Exam Narrative: Physical exam General: MRDD features, minimal interaction. Head: Normocephalic, Atraumatic Eyes: Conjunctiva not pale ENT: Slightly dry mucous membranes Neck: Supple, Nontender, No lymphadenopathy Cardiovascular: Regular rate, Regular rhythm Respiratory: No distress, CTA bilaterally Abdomen: Soft, Nontender, Nondistended Back: Nontender, Normal Inspection. Negative for: CVA tenderness Extremities: Nontender, No edema Skin: Normal color, No rash Neurological: She is alert, she is not somnolent she has no focal deficit she has slight asterixis Const Vital Signs: 02/20/21 21:01 02/20/21 21:04 02/20/21 22:00 Temperature 98.8 F Temperature Source Oral Pulse Rate 100 92 Respiratory Rate 24 H 22 H Respiratory Effort Normal Non-Labored Respiratory Pattern Normal Blood Pressure 118/67 120/59 L Blood Pressure Mean 84 79 Pulse Ox 95 98 Oxygen Delivery Method Room Air Room Air MDM MDM MDM Narrative Medical decision making narrative: Patient has a normal emergency department work-up. She appears well she is back to baseline there is no evidence of seizure-like activity. Mother wants to take her home this is reasonable I will discharge in stable condition. Lab Data Labs: Laboratory Results - last 24 hr 02/20/21 02/20/21 02/20/21 21:35 21:35 21:35 WBC 2.7 L RBC 4.15 L Hgb 13.5 Hct 39.2 MCV 94.5 MCH 32.5 H MCHC 34.4 RDW Std Deviation 49.1 H RDW Coeff of Rick 14.3 Plt Count 79 L MPV 11.7 Immature Gran % (Auto) 0.800 Neut % (Auto) 69.7 Lymph % (Auto) 18.9 L [place] % (Auto) 7.2 Eos % (Auto) 3.0 Baso % (Auto) 0.4 Absolute Neuts (auto) 1.9 L Absolute Lymphs (auto) 0.50 L Nucleated RBC % 0 Differential Comment SEE COMMENT Diff Path Review May foll Platelet Estimate MOD DEC RBC Morphology N CHROM Anisocytosis RARE Macrocytosis RARE Ovalocytes RARE Sodium 137 Potassium 3.4 L Chloride 105 Carbon Dioxide 27.0 Anion Gap 5 BUN 7 Creatinine 0.53 L Estim Creat Clear Calc 142.66 Est GFR (MDRD) Af Amer 172 Est GFR (MDRD) Non-Af 142 BUN/Creatinine Ratio 13.3 Glucose 92 Calcium 8.8 Total Bilirubin 2.80 H Direct Bilirubin 0.56 H AST 34 ALT 39 Alkaline Phosphatase 94 Ammonia 29.0 Total Protein 6.2 L Albumin 3.4 Globulin 2.8 Lipase 83 Urine Color Urine Clarity Urine pH Ur Specific [place] Urine Protein Urine Glucose (UA) Urine Ketones Urine Occult Blood Urine Nitrite Urine Bilirubin Urine Urobilinogen Ur Leukocyte Esterase Urine RBC Urine WBC Ur Squamous Epith Cells Urine Bacteria Urine Mucus 02/20/21 22:00 WBC RBC Hgb Hct MCV MCH MCHC RDW Std Deviation RDW Coeff of Rick Plt Count MPV Immature Gran % (Auto) Neut % (Auto) Lymph % (Auto) [place] % (Auto) Eos % (Auto) Baso % (Auto) Absolute Neuts (auto) Absolute Lymphs (auto) Nucleated RBC % Differential Comment Diff Path Review Platelet Estimate RBC Morphology Anisocytosis Macrocytosis Ovalocytes Sodium Potassium Chloride Carbon Dioxide Anion Gap BUN Creatinine Estim Creat Clear Calc Est GFR (MDRD) Af Amer Est GFR (MDRD) Non-Af BUN/Creatinine Ratio Glucose Calcium Total Bilirubin Direct Bilirubin AST ALT Alkaline Phosphatase Ammonia Total Protein Albumin Globulin Lipase Urine Color Yellow Urine Clarity Clear Urine pH 7.0 Ur Specific [place] 1.010 Urine Protein Negative Urine Glucose (UA) Normal Urine Ketones Negative Urine Occult Blood Negative Urine Nitrite Negative Urine Bilirubin Negative Urine Urobilinogen Normal Ur Leukocyte Esterase Negative Urine RBC 0 SEEN Urine WBC 0 SEEN Ur Squamous Epith Cells 0 SEEN Urine Bacteria 0 SEEN Urine Mucus 0 SEEN Radiography Diagnostic Testing: Radiology Impression Chest X-Ray 02/20/21 21:40 IMPRESSION: Persistent indistinctness of the left hilar vascularity and some increased density superimposed over the heart in the left mid and lower lung. Unchanged pulmonary hypoexpansion. This may represent persistent left lung airspace disease such as pneumonia. at 2204 Reported and signed by: Iván Gibbons MD Electronically Signed: Iván Gibbons MD at 22:03 EDT Tel , Service support , Discharge Plan Triage Chief Complaint: Mental Status Change Other Complaint: Alt LOC ED Provider: Orestes Guerrero Dx/Rx/DC Orders Clinical Impression: Gaucher disease, Developmental disorder, Behavior concern Instructions: ED Confusion Prescriptions: No Action multivitamin with minerals 1 EACH tablet 1 ea PO DAILY RF: 0 Lactobacillus acidophilus 1 EACH capsule 1 ea PO DAILY RF: 0 michelle (Zingiber officinalis) 500 MG capsule 500 mg PO DAILY RF: 0 lorazepam 0.5 MG tablet 0.5 mg PO TID Qty: 7 RF: 0 sertraline 25 MG tablet 25 mg PO QHS RF: 0 Primary Care Provider: Mariela Kan Referrals: Mariela Kan MD [Primary Care Provider] - 2 Days Disposition Disposition: Home, self care
[2021-02-20 21:51] LABS: Absolute Neutrophil Count 1.9 X10^3/uL (2.0-7.7); Basophil# 0.01 X10^3/uL; Basophil% 0.4 % (0-1); Eosinophil# 0.08 X10^3/uL; Hematocrit 39.2 % (37-47); Hemoglobin 13.5 g/dL (12.0-15.0); Lymphocyte % 18.9 % (19-41); Mean Corp Hgb Conc 34.4 g/dL (32-36); Mean Corpuscular Hgb 32.5 pg (27.0-32.0); Mean Corpuscular Volume 94.5 fL (81-99); Mean Platelet Vol. 11.7 fl (6.2-12.0); Monocyte# 0.19 X10^3/uL; Monocyte% 7.2 % (0-10); NRBC Flagged by Analyzer 0 % (0-5); Neutrophil # 1.85 X10^3/uL (2.7-7.7); Neutrophil % 69.7 % (47-70); POSITIVE COUNT YES; POSITIVE DIFFERENTIAL YES; Platelet Count 79 K/mm3 (150-450); RBC Distribution Width CV 14.3 % (11.6-14.6); RBC Distribution Width SD 49.1 fl (35.1-43.9); Red Blood Count 4.15 M/mm3 (4.2-5.4); White Blood Count 2.7 K/mm3 (4.4-11.0)
[2021-02-20 21:52] LABS: Differential Indicated SCAN CRITERIA MET
[2021-02-20 22:00] VITALS: BP 120/59; PULSE 92; RESP 22; O2SAT 98
[2021-02-20 22:04] LABS: Bacteria 0 SEEN /hpf (None Seen); Mucous, Urine 0 SEEN /hpf (<or=2+); Red Blood Cells-Urine 0 SEEN /hpf (0-5); Squamous Epithelial Cells - UA 0 SEEN /hpf (5-10); White Blood Cells 0 SEEN /hpf (0-5)
[2021-02-20 22:07] LABS: AST(SGOT) 34 U/L (15-37); Alanine Aminotransfer ALT/SGPT 39 U/L (13-56); Albumin, Serum 3.4 g/dL (3.2-5.0); Alkaline Phosphatase 94 U/L (45-117); Anion Gap 5 (5-15); BUN 7 mg/dL (7-18); BUN/Creat Ratio 13.3 RATIO (10-20); Bilirubin, Direct 0.56 mg/dL (0.00-0.30); Calcium,Total 8.8 mg/dL (8.5-10.1); Chloride 105 mmol/L (98-107); Creatinine, Serum 0.53 mg/dL (0.55-1.02); EST Glomerular Filtration Rate 142 mL/min (>60); Est Glom Filt Rate - Afr Amer 172 mL/min (>60); Estimated Creatinine Clearance 142.66 ml/min; Globulin 2.8 g/dL (2.2-4.2); Glucose 92 mg/dL (74-106); Lipase 83 U/L (73-393); Potassium 3.4 mmol/L (3.5-5.1); Protein, Total 6.2 g/dL (6.4-8.2); Sodium Level 137 mmol/L (136-145)
[2021-02-20 22:17] LABS: Color, Urine Yellow (Yellow); Glucose, Dipstick Normal (Normal); Ketone-Dipstick Negative (Negative); Leukocyte Esterase-Dipstick Negative /ul (Negative); Nitrite-Dipstick Negative (Negative); Occult Blood-Urine Negative /ul (Negative); Protein-Dipstick Negative (Negative); Urine Bilirubin Dipstick Negative (Negative); Urine Clarity Clear (Clear); Urine Urobilinogen Normal (Normal)
[2021-02-20 22:27] LABS: Anisocytosis RARE; Macrocytosis RARE; Ovalocyte RARE; Platelet Estimate MOD DEC (ADEQ); Red Cell Morphology N CHROM NORMAL (NORM C&C)
[2021-02-20 23:30] VITALS: BP 120/59; PULSE 87; RESP 16; O2SAT 97
[2021-02-21 12:04] LABS: Pathologist Review Reviewed
== END 2021-02-20 23:31 | disposition home or self-care (01) ==
PROVIDERS: Emergency Provider Emergency Medicine; PCP Internal Medicine
DX: E75.22 Gaucher disease (principal); R41.82 Altered mental status, unspecified; F89 Unspecified disorder of psychological development; K74.60 Unspecified cirrhosis of liver; Z79.899 Other long term (current) drug therapy
CPT/HCPCS: 71045; 80048; 80076; 81001; 82140; 83690; 85025; 87426; 96360; 99285; A4216

== ENCOUNTER 2022-06-21 11:51 | Emergency (ER) | payer BC, MEDICAID, SELFPAY ==
[2022-06-21 11:52] VITALS: BP 112/67; PULSE 61; RESP 18; TEMP 35.9; O2SAT 96; BMI 33.5
--- NOTE | 2022-06-21 12:19 | CT_ITS ---
STUDY: CT LUMBAR SPINE WITHOUT CONTRAST REASON FOR EXAM: Female, 32 years old. Acute pain after a fall RADIATION DOSAGE (If Supplied By Facility): CTDIvol = ( 23.06 ) mGy, DLP = ( 647.11 ) mGycm TECHNIQUE: The patient was scanned in a multi detector CT scanner. High resolution transaxial imaging was performed. Images were obtained from T12 to the lower coccyx. Sagittal and coronal images were reconstructed. Individualized dose optimization techniques were used for this CT. COMPARISON: None FINDINGS: Normal lumbar lordosis. There is no substantial scoliosis. Normal alignment of the lumbar vertebral bodies from L1-L5, there is a bilateral pars defect and grade 1 spondylolisthesis at L5-S1. Normal vertebrae of the lumbar spine, a limbus vertebra noted at L3. This is not an acute fracture. L1-2: Normal endplates. Normal disc height and morphology. Normal bilateral facet joints. Normal central canal and bilateral lateral recesses. Normal bilateral intervertebral neural foramina. L2-3: Normal endplates. Normal disc height and morphology. Normal bilateral facet joints. Normal central canal and bilateral lateral recesses. Normal bilateral intervertebral neural foramina. L3-4: Normal endplates. Normal disc height and morphology. Normal bilateral facet joints. Normal central canal and bilateral lateral recesses. Normal bilateral intervertebral neural foramina. L4-5: Normal endplates. Normal disc height and morphology. Normal bilateral facet joints. Normal central canal and bilateral lateral recesses. Normal bilateral intervertebral neural foramina. L5-S1: Normal endplates. Normal disc height and morphology. Normal bilateral facet joints. Normal central canal and bilateral lateral recesses. Normal bilateral intervertebral neural foramina. Normal visualized paraspinous soft tissue structures. CT/Spine Lumbar without Contrast IMPRESSION: No acute fracture or suspicious osseous lesion, limbus vertebra noted at L3 Bilateral pars defect and grade 1 spondylolisthesis at L5/S1 Electronically Signed: Kendall Mcclendon MD at 13:13 EDT Reading Location ID and State: [facility] / [place] , Service support ,
--- NOTE | 2022-06-21 12:36 | ED.VIS.FALL ---
HPI HPI - Fall History of Present Illness Chief Complaint: Fall Narrative Narrative: 32-year-old [facility] female presents with her mother because of fall today. She has past medical history of nonalcoholic cirrhosis, Gaucher disease, and reported developmental disorder. Her mother states that EMS was called secondary to a fall today. Patient fell onto her left leg, and complained of back pain this morning. No fevers or chills. Mother states that she thinks that the patient is a little more drowsy and is unsure if she took her lactulose today. After the patient fell and was complaining of back pain, they did not want to move her, but then the patient was able to get up by herself somewhat gingerly. She intermittently complains of left leg pain and low back pain. They deny that she has had any other injury. [facility] Medical History Cirrhosis Home Medications Lactobacillus acidophilus 500 million cell capsule 1 ea PO DAILY 01/08/20 [History Last Taken Unknown] michelle (Zingiber officinalis) 500 mg capsule 500 mg PO DAILY 01/08/20 [History Last Taken Unknown] lorazepam 0.5 mg tablet 0.5 mg PO TID ##7 01/08/20 [Rx Last Taken Unknown] multivitamin with minerals 1 ea PO DAILY 01/08/20 [History Last Taken Unknown] sertraline 25 mg tablet 25 mg PO QHS depression 02/12/21 [History Last Taken Unknown] Allergy/AdvReac Type Severity Reaction Status Date / Time oseltamivir Allergy Other Verified 06/21/22 11:56 Social History Smoking Status: Never smoker ROS ROS ED ROS Narrative Review of systems is limited secondary to patient's baseline mentation. Review of systems obtained through mother. Constitutional: No fever, no chills. HEENT: No sore throat. No neck pain. No loss of vision. No rhinorrhea. Cardiovascular: No chest pain. No palpitations. No pedal edema. Respiratory: No cough, no shortness of breath. Abdominal: No abdominal pain. No nausea. No vomiting. Genitourinary: No dysuria. No hematuria. Musculoskeletal: No myalgias. Left leg and hip pain. Low back pain. Neurologic: No headaches. No dizziness. No lightheadedness. More drowsy today. Skin: No rash. No change in color. Psychiatric: No depression. No anxiety. EXAM Physical Exam Narrative Exam Narrative: Afebrile. Vital signs noted. HEENT: Normocephalic. Atraumatic. PERRL, EOMI. Neck soft and supple. No point tenderness or step off. Cardiovascular: Regular rate and rhythm. No murmurs, rubs, or gallops appreciated. Respiratory: No tachypnea. Lungs clear to auscultation bilaterally. Gastrointestinal: Abdomen soft, nontender, with normoactive bowel sounds. No rebound or guarding. Neurological: Awake. Alert. Nonfocal, nonlateralizing. Skin: No rash. Normal color. No pallor. Musculoskeletal: No pedal edema. Full range of motion extremities. No pain with bilateral femur roll. Pelvis stable. No vertebral point tenderness or bony step-off of lumbar spine. Const Vital Signs: 06/21/22 11:52 06/21/22 13:31 Temperature 96.6 F L Temperature Source Temporal Pulse Rate 61 70 Respiratory Rate 18 22 H Blood Pressure 112/67 114/60 Blood Pressure Mean 82 78 Pulse Ox 96 96 Oxygen Delivery Method Room Air Room Air MDM MDM MDM Narrative Medical decision making narrative: X-rays will be obtained of the pelvis and bilateral hips and femur. I will obtain CT imaging of her lumbar spine. Additionally I will obtain an ammonia level. My interpretation of the x-ray of the pelvis shows no acute fracture. I also interpreted her femur x-rays and see no evidence of fracture or dislocation of her hip. CT of the lumbar spine shows no acute fracture. There is bilateral pars defect and grade 1 spondylolisthesis at L5/S1. Her ammonia level is elevated at 131. Her mother states that she takes 15 grams of lactulose 3 times a day. She will be given a dose of 40 grams here in the emergency department. She is awake and alert currently. I do not feel that she requires admission to the hospital. Additionally, her mother was concerned that fluid was accumulating in her abdomen. I see no need for admission or emergent paracentesis. They will follow-up with her liver specialist soon as possible. I feel she be discharged safely home. Return instructions were reviewed. Disposition is discharged in stable condition. Lab Data Attestation: I reviewed the patient's lab results. Labs: Laboratory Results - last 24 hr 06/21/22 12:09 Ammonia 131.0 H Radiography Diagnostic Testing: Clinical Impression(s) from Imaging Studies Lumbar Spine CT 06/21/22 12:19 IMPRESSION: No acute fracture or suspicious osseous lesion, limbus vertebra noted at L3 Bilateral pars defect and grade 1 spondylolisthesis at L5/S1 Electronically Signed: Kendall Mcclendon MD at 13:13 EDT , Femur X-Ray 06/21/22 12:45 IMPRESSION: Normal x-ray examination of the femur. Electronically Signed: Kendall Mcclendon MD at 12:59 EDT , Femur X-Ray 06/21/22 12:45 IMPRESSION: Normal x-ray examination of the femur. Electronically Signed: Kendall Mcclendon MD at 12:59 EDT , Pelvis X-Ray 06/21/22 12:45 IMPRESSION: Normal x-ray examination of the pelvis. Electronically Signed: Kendall Mcclendon MD at 12:58 EDT Reading Location ID and State: [facility] / [place] , Service support , Discharge Plan Triage Chief Complaint: Fall Other Complaint: Back ED Provider: Eddie Bradford Dx/Rx/DC Orders Clinical Impression: Fall, Non-alcoholic cirrhosis, Back pain, Increased ammonia level Instructions: ED Back Pain (Acute or Chronic), ED Cirrhosis, ED Fall with Uncertain Cause Prescriptions: No Action multivitamin with minerals 1 EACH tablet 1 ea PO DAILY Lactobacillus acidophilus 1 EACH capsule 1 ea PO DAILY michelle (Zingiber officinalis) 500 MG capsule 500 mg PO DAILY lorazepam 0.5 MG tablet 0.5 mg PO TID Qty: 7 0RF Rx Instructions: PRN sertraline 25 MG tablet 25 mg PO QHS Primary Care Provider: Mariela Kan Referrals: Mariela Kan MD [Primary Care Provider] - As soon as possible Activity Restrictions/Additional Instructions: Follow-up with your liver specialist as soon as possible. Continue your lactulose as previously directed. Disposition Disposition: Home, Self Care
--- NOTE | 2022-06-21 12:45 | RAD_ITS ---
STUDY: X-RAY - PELVIS REASON FOR EXAM: Female, 32 years old. Pain after fall TECHNIQUE: One view of the pelvis was obtained. COMPARISON: None. FINDINGS: There is a non-specific bowel gas pattern. Normal visualized soft tissue structures. Normal bilateral iliac wings, sacroiliac joints and visualized sacrum. Normal visualized bilateral superior and inferior pubic rami. Normal pubic symphysis. Normal ischial tuberosities. Normal visualized right femoral head. Normal right acetabulum. Normal right hip joint. Normal visualized left femoral head. Normal left acetabulum. Normal left hip joint. RAD/Pelvis 1 or 2 Views IMPRESSION: Normal x-ray examination of the pelvis. Electronically Signed: Kendall Mcclendon MD at 12:58 EDT ,
--- NOTE | 2022-06-21 12:45 | RAD_ITS ---
STUDY: X-RAY - RIGHT FEMUR REASON FOR STUDY: Female, 32 years old. Acute pain after fall TECHNIQUE: 4 view(s) of the femur. COMPARISON: None. FINDINGS: Normal visualized femur. Normal visualized soft tissue structure. RAD/Femur Min 2 Views IMPRESSION: Normal x-ray examination of the femur. Electronically Signed: Kendall Mcclendon MD at 12:59 EDT ,
--- NOTE | 2022-06-21 12:45 | RAD_ITS ---
STUDY: X-RAY - LEFT FEMUR REASON FOR STUDY: Female, 32 years old. Acute pain after fall TECHNIQUE: 4 view(s) of the femur. COMPARISON: None. FINDINGS: Normal visualized femur. Normal visualized soft tissue structure. RAD/Femur Min 2 Views IMPRESSION: Normal x-ray examination of the femur. Electronically Signed: Kendall Mcclendon MD at 12:59 EDT ,
[2022-06-21 13:31] VITALS: BP 114/60; PULSE 70; RESP 22; O2SAT 96
--- NOTE | 2022-06-23 12:08 | ED.RN ---
MOTHER CALLED AND ASKED IF WE COULD SEND PT RELEASE FOR THE WORKSHOP. RELEASE PRINTED AND FAXED
== END 2022-06-21 14:13 | disposition home or self-care (01) ==
PROVIDERS: Emergency Provider Emergency Medicine; PCP Internal Medicine; Visit Provider Emergency Medicine
DX: M54.50 Low back pain, unspecified (principal); K74.60 Unspecified cirrhosis of liver; E75.22 Gaucher disease; E72.20 Disorder of urea cycle metabolism, unspecified; W19.XXXA Unspecified fall, initial encounter; M79.605 Pain in left leg; Z79.899 Other long term (current) drug therapy; M43.17 Spondylolisthesis, lumbosacral region
CPT/HCPCS: 72131; 72170; 73552; 82140; 99285; A4216

== ENCOUNTER 2022-11-08 16:29 | Emergency (ER) | payer MEDICAID, SELFPAY ==
[2022-11-08 16:31] VITALS: BP 110/69; PULSE 66; RESP 16; TEMP 36.7; O2SAT 95; BMI 32.6
--- NOTE | 2022-11-08 16:41 | EKG12_ITS ---
Test Reason : WEAKNESS Blood Pressure : / mmHG Vent. Rate : 068 BPM Atrial Rate : 068 BPM P-R Int : 176 ms QRS Dur : 072 ms QT Int : 410 ms P-R-T Axes : 048 053 060 degrees QTc Int : 435 ms Normal sinus rhythm Normal ECG Confirmed by OSCAR BRAND, HECTOR ([id number]), editorial clerk NANY BARKSDALE ([id number]) on 11/10/2022 9:29:57 AM Referred By: Confirmed By:HECTOR MOORE MD
--- NOTE | 2022-11-08 16:41 | CT_ITS ---
STUDY: CT BRAIN WITHOUT CONTRAST REASON FOR EXAM: Female, 32 years old. Weakness. RADIATION DOSAGE (If Supplied By Facility): CTDIvol = ( 44.99 ) mGy, DLP = ( 812.98 ) mGycm TECHNIQUE: Transaxial CT imaging of the brain was performed without administration of intravenous contrast material. Individualized dose optimization techniques were used for this CT. COMPARISON: MRI of the brain, February 13, 2021. FINDINGS: Normal soft tissue structures. Normal calvarium. Normal size ventricles and extra-axial spaces for the patient''s age. Normal white matter tracts of the cerebral hemispheres. Normal basal ganglia and thalami. Normal brainstem. Normal cerebellum. There is no intracranial hemorrhage. There are no findings of an acute ischemic infarction. Normal visualized paranasal sinuses. CT/Brain/Head without Contrast IMPRESSION: No acute intracranial or calvarial abnormality. No major interval change. Electronically Signed: Ruperto Luna DO at 17:32 EST ,
--- NOTE | 2022-11-08 16:43 | EDS_ITS ---
HPI History of Present Illness Chief Complaint: Weakness Narrative Narrative: Patient arrives via EMS. Apparently she was relatively normal this morning able to ambulate and now she is not she feels quite weak. She has a history of liver disease, cirrhosis, pancytopenia developmental disorder and cognitive disorder. No recent head injury, no recent fall. No recent fevers chills. Most the history is per mom I cannot get any history from the patient [facility] Medical History (Updated 11/08/22 @ 18:[address] 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 Pancytopenia Home Medications Lactobacillus acidophilus 500 million cell capsule 1 ea PO DAILY 01/08/20 [History Last Taken Unknown] michelle (Zingiber officinalis) 500 mg capsule 500 mg PO DAILY 01/08/20 [History Last Taken Unknown] lorazepam 0.5 mg tablet 0.5 mg PO TID ##7 01/08/20 [Rx Last Taken Unknown] multivitamin with minerals 1 ea PO DAILY 01/08/20 [History Last Taken Unknown] sertraline 25 mg tablet 25 mg PO QHS depression 02/12/21 [History Last Taken Unknown] lactulose 10 gram/15 mL oral solution (Constulose) 15 ml PO TID 11/08/22 [History Last Taken Unknown] pantoprazole 40 mg tablet,delayed release 40 mg PO DAILY 11/08/22 [History Last Taken Unknown] propranolol 20 mg tablet 20 mg PO DAILY 11/08/22 [History Last Taken Unknown] Allergy/AdvReac Type Severity Reaction Status Date / Time oseltamivir Allergy Other Verified 11/08/22 16:30 Family History (Updated 11/08/22 @ 17:[address] Zohra Araujo MD) Other VTE (venous thromboembolism) Surgical History (Updated 11/08/22 @ 17:[address] Zohra Araujo MD) History of liver biopsy Social History (Updated 11/08/22 @ 17:[address] Zohra Araujo MD) household members: family Smoking Status: Never smoker alcohol intake: never substance use type: does not use ROS ROS ED Review of Systems ROS Unobtainable: due to mental status EXAM Physical Exam Narrative Exam Narrative: Physical exam General: Patient does not appear in any distress. She does have MRDD features. Head: Normocephalic, Atraumatic Eyes: Conjunctiva not pale ENT: Moist mucous membranes. Poor dentition but no signs of infection. Neck: Supple, Nontender, No lymphadenopathy Cardiovascular: Regular rate, Regular rhythm Respiratory: No distress, CTA bilaterally Abdomen: Soft, Nontender, Nondistended Back: Nontender, Normal Inspection. Negative for: CVA tenderness Extremities: Nontender, No edema Skin: Normal color, No rash Neurological: Alert, she responds to simple questions with yes and no. She has sensation especially pain in her extremities. She has normal strength and se nsation as far as she can hold up individually each leg for more than 5 seconds and her arms greater than 10 seconds. Const Vital Signs: 11/08/22 16:31 11/08/22 16:38 Temperature 98.1 F Temperature Source Temporal Pulse Rate 66 Respiratory Rate 16 Respiratory Effort Normal Non-Labored Respiratory Pattern Normal Blood Pressure 110/69 Blood Pressure Mean 82 Pulse Ox 95 Oxygen Delivery Method Room Air MDM MDM MDM Narrative Medical decision making narrative: A. Problems addressed ( does not have to be diagnoses) Hyperammonemia, liver disease, leukopenia, thrombocytopenia, weakness B. Amount and/or complexity of the data (2 out of 3) 1. I interpreted CBC, with leukopenia, thrombocytopenia, CMP, and slightly elevated ammonia level as well as a normal INR. I discussed the patient with her mother who was in the room 2. Independent interpretation of test Telemetry: Sinus rhythm with a rate in the 60s without ectopy. C. Risk of complications and/or morbidity Patient had an altered level consciousness briefly, thought about seizure activity although the mother did not notice any kind of seizure activity issues with her, I thought about an intracranial pathology including an intracranial bleed especially with thrombocytopenia however the CT was negative. I thought about electrolyte abnormalities but the CMP was normal. I thought about infectious etiology like pneumonia and UTI however these are not shown on my testing. I had a long discussion with mom. I did think about admitting the p atient however at this time she is back to baseline appears well and it sounds like she would do better in mom's care and mom is in agreement with this. She will follow-up with her doctor. She received IV fluids in the ED. Afterwards I reevaluated her per mom she is back to baseline. I ambulated her and she ambulated quite well. She is now more verbal and responds although not always appropriately which is chronic for her. She will have to get a ride, they are [employer] and have limited resources as far as driving abilities but I believe she can get a hog driver to drive her to her doctors appointments and mom told me this. Patient will be discharged in stable condition. Lab Data Labs: Laboratory Results - last 24 hr 11/08/22 11/08/22 11/08/22 16:55 16:55 16:55 WBC 2.2 L RBC 3.87 L Hgb 13.3 Hct 37.8 MCV 97.7 MCH 34.4 H MCHC 35.2 RDW Std Deviation 54.3 H RDW Coeff of Rick 15.3 H Plt Count 66 L MPV 11.5 Differential Comment SEE COMMENTS PT 18.0 H INR 1.5 Sodium Potassium Chloride Carbon Dioxide Anion Gap BUN Creatinine Estim Creat Clear Calc Est GFR (MDRD) Af Amer Est GFR (MDRD) Non-Af BUN/Creatinine Ratio Glucose Calcium Total Bilirubin AST ALT Alkaline Phosphatase Ammonia 51.0 H Total Protein Albumin Globulin Albumin/Globulin Ratio Lipase Urine Color Urine Clarity Urine pH Ur Specific [place] Urine Protein Urine Glucose (UA) Urine Ketones Urine Occult Blood Urine Nitrite Urine Bilirubin Urine Urobilinogen Ur Leukocyte Esterase Urine RBC Urine WBC Ur Squamous Epith Cells Urine Bacteria Urine Mucus 11/08/22 11/08/22 16:55 17:37 WBC RBC Hgb Hct MCV MCH MCHC RDW Std Deviation RDW Coeff of Rick Plt Count MPV Differential Comment PT INR Sodium 139 Potassium 4.7 Chloride 107 Carbon Dioxide 27.0 Anion Gap 5 BUN 9 Creatinine 0.55 Estim Creat Clear Calc 134.92 Est GFR (MDRD) Af Amer 161 Est GFR (MDRD) Non-Af 133 BUN/Creatinine Ratio 16.2 Glucose 91 Calcium 8.8 Total Bilirubin 3.30 H AST 39 H ALT 31 Alkaline Phosphatase 115 Ammonia Total Protein 6.0 L Albumin 3.1 L Globulin 2.9 Albumin/Globulin Ratio 1.1 Lipase 165 Urine Color Yellow Urine Clarity Sl. Cloudy Urine pH 7.0 Ur Specific [place] 1.010 Urine Protein Negative Urine Glucose (UA) Normal Urine Ketones Negative Urine Occult Blood Negative Urine Nitrite Negative Urine Bilirubin Negative Urine Urobilinogen 8 H Ur Leukocyte Esterase 25 H Urine RBC 0 SEEN Urine WBC 0-5 SEEN Ur Squamous Epith Cells 0-5 SEEN Urine Bacteria 1+ Urine Mucus 0 SEEN Radiography Diagnostic Testing: Clinical Impression(s) from Imaging Studies Brain CT 11/08/22 16:41 IMPRESSION: No acute intracranial or calvarial abnormality. No major interval change. Electronically Signed: Ruperto Luna DO at 17:32 EST Reading Location ID and State: [address] [place] [address] Tel [phone], Service support , Chest X-Ray 11/08/22 17:17 IMPRESSION: Hypoexpanded lungs with cardiomegaly and mild perihilar interstitial changes. Vascular congestion versus bilateral interstitial pneumonia. Electronically Signed: Ruperto Luna DO at 17:34 EST Reading Location ID and State: [address] [place] [address] Tel [phone], Service support , Chest x-ray read by me and radiologist is normal. EKG Initial EKG: Comments: Sinus rhythm with a rate of 68. Normal MA and QTc intervals. No ischemic changes. Interpreted by emergency doctor. Discharge Plan Triage Chief Complaint: Weakness ED Provider: Orestes Guerrero Dx/Rx/DC Orders Clinical Impression: Acute confusion, Thrombocytopenia, Biliary liver cirrhosis, Leukopenia, Hyperbilirubinemia Instructions: ED Confusion Prescriptions: No Action multivitamin with minerals 1 EACH tablet 1 ea PO DAILY Lactobacillus acidophilus 1 EACH capsule 1 ea PO DAILY michelle (Zingiber officinalis) 500 MG capsule 500 mg PO DAILY lorazepam 0.5 MG tablet 0.5 mg PO TID Qty: 7 0RF Rx Instructions: PRN sertraline 25 MG tablet 25 mg PO QHS pantoprazole 40 mg tablet,delayed release (DR/EC) 40 mg PO DAILY Label Comments: TAKE 1 TABLET BY MOUTH TWICE DAILY BEFORE MEAL(S) propranolol 20 mg tablet 20 mg PO DAILY Label Comments: TAKE 1 TABLET BY MOUTH TWICE DAILY lactulose [Constulose] 10 gram/15 mL solution 15 ml PO TID Label Comments: TAKE 15ML BY MOUTH 3 TIMES DAILY. TAKE TO ACHIEVE FOR 2 TO 3 BOWEL MOVEMENTS DAILY. ADJUST DOSE BASED ON NUMBER OF BOWEL MOVEMENTS DAILY. Primary Care Provider: Mariela Kan Referrals: Mariela Kan MD [Primary Care Provider] - 3-5 Days Disposition Disposition: Home, Self Care
--- NOTE | 2022-11-08 16:48 | NURSING ---
NO OLD EKGS
[2022-11-08 17:04] LABS: Hematocrit 37.8 % (37-47); Hemoglobin 13.3 g/dL (12.0-15.0); Mean Corp Hgb Conc 35.2 g/dL (32-36); Mean Corpuscular Hgb 34.4 pg (27.0-32.0); Mean Corpuscular Volume 97.7 fL (81-99); Mean Platelet Vol. 11.5 fl (6.2-12.0); POSITIVE COUNT YES; Platelet Count 66 K/mm3 (150-450); RBC Distribution Width CV 15.3 % (11.6-14.6); RBC Distribution Width SD 54.3 fl (35.1-43.9); Red Blood Count 3.87 M/mm3 (4.2-5.4); White Blood Count 2.2 K/mm3 (4.4-11.0)
[2022-11-08 17:07] LABS: Scan Indicated on CBC? Y/N YES- FLAGS NOTED
[2022-11-08 17:11] LABS: International Normalized Ratio 1.5
--- NOTE | 2022-11-08 17:17 | RAD_ITS ---
STUDY: X-RAY CHEST REASON FOR EXAM: Female, 32 years old. Generalized weakness. Unable to ambulate. TECHNIQUE: Single AP portable view of the chest. COMPARISON: February 20, 2021. FINDINGS: The lung are well-expanded. No new mass or infiltrate. There is mild perihilar interstitial prominence. There is no demonstrated pleural abnormality. Mild cardiomegaly. Normal mediastinum and madie. Normal visualized pulmonary arteries. Normal visualized aortic arch and descending thoracic aorta. Normal visualized thoracic spine. Normal visualized ribs, clavicles, and shoulders. There is no demonstrated abnormality of the visualized soft tissue structures of the upper abdomen. RAD/Chest 1 View (Portable) IMPRESSION: Hypoexpanded lungs with cardiomegaly and mild perihilar interstitial changes. Vascular congestion versus bilateral interstitial pneumonia. Electronically Signed: Ruperto Luna DO at 17:34 EST ,
[2022-11-08 17:27] LABS: ALB/GLOB Ratio 1.1 RATIO (0.9-2.4); AST(SGOT) 39 U/L (15-37); Alanine Aminotransfer ALT/SGPT 31 U/L (13-56); Albumin, Serum 3.1 g/dL (3.2-5.0); Alkaline Phosphatase 115 U/L (45-117); Anion Gap 5 (5-15); BUN 9 mg/dL (7-18); BUN/Creat Ratio 16.2 RATIO (10-20); Calcium,Total 8.8 mg/dL (8.5-10.1); Chloride 107 mmol/L (98-107); Creatinine, Serum 0.55 mg/dL (0.55-1.02); Differential Comment SEE COMMENTS; EST Glomerular Filtration Rate 133 mL/min (>60); Est Glom Filt Rate - Afr Amer 161 mL/min (>60); Estimated Creatinine Clearance 134.92 ml/min; Globulin 2.9 g/dL (2.2-4.2); Glucose 91 mg/dL (74-106); Lipase 165 U/L (73-393); Potassium 4.7 mmol/L (3.5-5.1); Sodium Level 139 mmol/L (136-145)
[2022-11-08 17:42] LABS: Mucous, Urine 0 SEEN /hpf (<or=2+); Red Blood Cells-Urine 0 SEEN /hpf (0-5)
[2022-11-08 17:49] LABS: Color, Urine Yellow (Yellow); Glucose, Dipstick Normal (Normal); Ketone-Dipstick Negative (Negative); Leukocyte Esterase-Dipstick 25 /ul (Negative); Nitrite-Dipstick Negative (Negative); Occult Blood-Urine Negative /ul (Negative); Protein-Dipstick Negative (Negative); Urine Bilirubin Dipstick Negative (Negative); Urine Clarity Sl. Cloudy (Clear); Urine Urobilinogen 8 mg/dl (Normal)
[2022-11-08 17:56] LABS: Bacteria 1+ /hpf (None Seen); Squamous Epithelial Cells - UA 0-5 SEEN /hpf (5-10); White Blood Cells 0-5 SEEN /hpf (0-5)
== END 2022-11-08 18:30 | disposition home or self-care (01) ==
PROVIDERS: Emergency Provider Emergency Medicine; PCP Internal Medicine; Visit Provider Emergency Medicine
DX: R41.0 Disorientation, unspecified (principal); K74.5 Biliary cirrhosis, unspecified; D69.6 Thrombocytopenia, unspecified; E80.7 Disorder of bilirubin metabolism, unspecified; Z79.899 Other long term (current) drug therapy
CPT/HCPCS: 70450; 71045; 80053; 81001; 82140; 83690; 85027; 85610; 93005; 96360; 99284; J7040; A4216

== ENCOUNTER 2022-12-28 11:54 | Emergency (ER) | payer MEDICAID, SELFPAY ==
[2022-12-28 11:56] VITALS: BP 127/71; PULSE 67; RESP 4; TEMP 36.7; O2SAT 95
--- NOTE | 2022-12-28 12:45 | CT_ITS ---
STUDY: CT ABDOMEN AND PELVIS WITH CONTRAST REASON FOR EXAM: Female, 32 years old. Syncope -- History of liver aneurysms. Elevated ammonia levels. RADIATION DOSAGE (If Supplied By Facility): CTDIvol = ( 11.85 ) mGy, DLP = ( 803.42 ) mGycm TECHNIQUE: Transaxial images were obtained from the dome of the diaphragm to the symphysis pubis without oral contrast. IV 100mL Isovue-300 was administered. Sagittal and coronal images were reconstructed. Individualized dose optimization techniques were used for this CT. COMPARISON: None. FINDINGS: The visualized lung bases are unremarkable. The visualized portions of the heart are within normal limits. Normal liver. There are multiple gallstones. Marked degree of the varices seen in the region of the splenic hilum as well as in the periportal region. The main portal vein is not visualized to just above the portal hypertension. There is severe splenomegaly. Normal pancreas. Normal bilateral adrenal glands. Normal right kidney. Normal left kidney. There is a moderate-sized hiatal hernia composed mostly of the fundus of the stomach. Normal small intestine. Normal colon. The appendix is visualized and appears normal. Normal abdominal aorta. Normal inferior vena cava. Normal retroperitoneum. Normal urinary bladder. Follicles are seen in both ovaries. There is a small umbilical hernia containing fat. There is recannulization of the umbilical vein with multiple venous structures seen in the subcutaneous tissues in the left side of the abdominal wall. Small bilateral inguinal hernias containing fat more prominent on the right side. Grade 1 anterolisthesis of L5 on S1 with spondylolysis of the pars interarticularis of the L5 vertebrae. Loss of height of the superior endplate of the L1 and L2 vertebrae. CT/Abdomen/Pelvis W IV Cont ONLY IMPRESSION: Findings in keeping with the portal hypertension with large amount of varices seen in the region of the splenic hilum as well as the periportal region. The portal vein is nonvisualized and presumably obstructed. There is recannulization of the umbilical vein in the venous collaterals in the anterior cutaneous tissue. Marked degree of splenomegaly. Multiple gallstones. Electronically Signed: Nilson Balderas MD at 14:21 EST ,
[2022-12-28 13:15] LABS: Absolute Lymphocyte Count 0.67 X10^3/uL (0.83-4.51); Absolute Neutrophil Count 2.7 X10^3/uL (2.0-7.7); Basophil# 0.02 X10^3/uL; Basophil% 0.5 % (0-1); Eosinophil# 0.19 X10^3/uL; Eosinophils% 4.8 % (0-5); Hematocrit 41.2 % (37-47); Hemoglobin 14.4 g/dL (12.0-15.0); Lymphocyte # 0.67 X10^3/ul (0.83-4.51); Lymphocyte % 17.1 % (19-41); Mean Corpuscular Hgb 33.6 pg (27.0-32.0); Mean Platelet Vol. 10.6 fl (6.2-12.0); Monocyte# 0.29 X10^3/uL; Monocyte% 7.4 % (0-10); NRBC Flagged by Analyzer 0 % (0-5); Neutrophil # 2.73 X10^3/uL (2.7-7.7); Neutrophil % 69.7 % (47-70); Platelet Count 105 K/mm3 (150-450); RBC Distribution Width CV 15.5 % (11.6-14.6); RBC Distribution Width SD 53.6 fl (35.1-43.9); Red Blood Count 4.29 M/mm3 (4.2-5.4); White Blood Count 3.9 K/mm3 (4.4-11.0)
[2022-12-28 13:17] LABS: Bacteria 0 SEEN /hpf (None Seen); Mucous, Urine 0 SEEN /hpf (<or=2+); Red Blood Cells-Urine 0 SEEN /hpf (0-5); White Blood Cells 0 SEEN /hpf (0-5)
[2022-12-28 13:20] LABS: Color, Urine Yellow (Yellow); Glucose, Dipstick Normal (Normal); Ketone-Dipstick Negative (Negative); Leukocyte Esterase-Dipstick Negative /ul (Negative); Nitrite-Dipstick Negative (Negative); Occult Blood-Urine Negative /ul (Negative); Protein-Dipstick Negative (Negative); Specific Gravity, Urine 1.005 (1.002-1.030); Urine Bilirubin Dipstick Negative (Negative); Urine Clarity Sl. Cloudy (Clear); Urine Urobilinogen 4 mg/dl (Normal)
[2022-12-28 13:26] LABS: International Normalized Ratio 1.6; Prothrombin Time (Protime)PT. 18.9 SECONDS (11.7-14.9)
[2022-12-28 13:27] LABS: Partial Thromboplast Time 37.6 Seconds (24.1-36.2)
[2022-12-28 13:30] LABS: ALB/GLOB Ratio 1.2 RATIO (0.9-2.4); AST(SGOT) 36 U/L (15-37); Alanine Aminotransfer ALT/SGPT 30 U/L (13-56); Albumin, Serum 3.5 g/dL (3.2-5.0); Alkaline Phosphatase 106 U/L (45-117); Anion Gap 6 (5-15); BUN 8 mg/dL (7-18); BUN/Creat Ratio 13.9 RATIO (10-20); Calcium,Total 8.7 mg/dL (8.5-10.1); Chloride 104 mmol/L (98-107); Creatinine, Serum 0.58 mg/dL (0.55-1.02); EST Glomerular Filtration Rate 127 mL/min (>60); Est Glom Filt Rate - Afr Amer 153 mL/min (>60); Glucose 95 mg/dL (74-106); Potassium 4.3 mmol/L (3.5-5.1); Protein, Total 6.5 g/dL (6.4-8.2); Sodium Level 136 mmol/L (136-145)
[2022-12-28 13:34] LABS: Squamous Epithelial Cells - UA 0-5 SEEN /hpf (5-10)
--- NOTE | 2022-12-28 13:50 | RAD_ITS ---
STUDY: X-RAY - LUMBAR SPINE REASON FOR EXAM: Female, 32 years old. Injury/Pain TECHNIQUE: 2 view(s) of the lumbar spine were obtained. COMPARISON: None FINDINGS: There is an exaggerated lumbar lordosis. There is a mild levoscoliosis of the lumbar spine. Grade 1 anterolisthesis of L5 on S1 with spondylolysis of the pars interarticularis of the L5 vertebrae. Mild anterior wedging of the L2 vertebrae. This space narrowing at the T12-L1 and L1-L2 levels. Calcified gallstones. Splenomegaly. RAD/Lumbar Spine 2 or 3 Views IMPRESSION: Degenerative changes of the spine, as detailed above. Exaggerated lumbar lordosis. Great 1 anterolisthesis of L5 on S1 with spondylolysis of the pars interarticularis of the L5 vertebrae. Gallstones. Splenomegaly. Electronically Signed: Nilson Balderas MD at 14:14 EST ,
--- NOTE | 2022-12-28 14:49 | EDS_ITS ---
HPI History of Present Illness Chief Complaint: Syncope Informant: patient, family and other (Caregivers from the workshop) Onset/Context/Timing Onset: Today Context: Sudden Onset Timing: Continuous Quality: Aching Location: Right lower lumbar area Worsened by: Nothing Relieved by: Nothing Narrative Narrative: Patient presents with a syncopal episode that occurred today. 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 Caregiver states that she was helped to the floor. Patient complains of pain in her right lower lumbar area. Patient has a history of elevated ammonia levels in the past due to cirrhosis. Caregivers also state that the patient has had hepatic aneurysms and esophageal varices. Patient and caregivers deny any hematemesis or coffee-ground emesis. Caregiver states the patient normally does not feel much pain. Patient denies hitting her head. [facility] Medical History Anemia Developmental disorder Esophageal varices with hemorrhage Gaucher disease Hepatic encephalopathy Hepatomegaly Non-alcoholic cirrhosis Pancytopenia Splenomegaly Home Medications Lactobacillus acidophilus 500 million cell capsule 1 ea PO DAILY 01/08/20 [History Last Taken Unknown] michelle (Zingiber officinalis) 500 mg capsule 500 mg PO DAILY 01/08/20 [History Last Taken Unknown] lorazepam 0.5 mg tablet 0.5 mg PO TID #7 tabs 01/08/20 [Rx Last Taken Unknown] multivitamin with minerals 1 ea PO DAILY 01/08/20 [History Last Taken Unknown] sertraline 25 mg tablet 25 mg PO QHS depression 02/12/21 [History Last Taken Unknown] lactulose 10 gram/15 mL oral solution (Constulose) 15 ml PO TID 11/08/22 [History Last Taken Unknown] pantoprazole 40 mg tablet,delayed release 40 mg PO DAILY 11/08/22 [History Last Taken Unknown] propranolol 20 mg tablet 20 mg PO DAILY 11/08/22 [History Last Taken Unknown] Allergy/AdvReac Type Severity Reaction Status Date / Time oseltamivir Allergy Other Verified 12/28/22 11:59 Family History Other VTE (venous thromboembolism) Surgical History History of liver biopsy Social History household members: family Smoking Status: Never smoker alcohol intake: never substance use type: does not use ROS ROS ED Constitutional Constitutional ED: Denies chills or fever(s) Eyes Eyes: Denies blurry vision or change in vision ENT ENT ED: Denies rhinorrhea or sore throat Cardiovascular Cardiovascular: Denies chest pain or palpitations Respiratory/Chest Respiratory/Chest: Denies cough or dyspnea Gastrointestinal Gastrointestinal: Denies nausea or vomiting Genitourinary Genitourinary ED: Denies dysuria or hematuria Musculoskeletal Musculoskeletal: Denies back pain or neck pain Integumentary Denies abscess or rash Neurologic Neurologic: Denies headache(s) or weakness Allergic/Immunologic Allergic/Immunologic ED: Denies mouth swelling or urticaria EXAM Physical Exam Const Vital Signs: 12/28/22 11:56 12/28/22 13:46 Temperature 98.0 F Temperature Source Temporal Pulse Rate 67 Respiratory Rate 4 L Respiratory Effort Normal Blood Pressure 127/71 H Blood Pressure Mean 89 Pulse Ox 95 Oxygen Delivery Method Room Air Positive well nourished and well developed General Appearance ED: well developed HEENT Reports moist mucous membranes Neck supple and no JVD Resp normal respiratory effort and clear to auscultation bilaterally Cardio regular rate, regular rhythm and no murmurs GI normal to inspection, nondistended, normoactive bowel sounds and non-tender Palpation: soft Back/Spine Back/Spine Narrative: There is mild tenderness over the right lower lumbar paraspinal muscles. There is no midline tenderness there is no bony crepitance or step-off. Range of mo tion was slightly limited in all motions of the lumbar spine secondary to pain. Strength is 5/5 bilaterally in the lower extremities. There are no sensory deficits noted. Extremity normal to inspection General Extremety ED: Negative for edema or tenderness General Extremity: Negative for edema Neuro oriented x3, CN's II-XII intact bilaterally and no sensory deficits noted Sensorium / Orientation: alert Motor Exam: strength 5/5 throughout Psych mental status grossly normal Skin no rashes or lesions noted MDM MDM MDM Narrative Medical decision making narrative: Differential diagnosis includes vasovagal syncope, viral illness, hepatic encephalopathy, urinary tract infection, abdominal bleeding, and lumbosacral strain. CBC will be obtained to assess for leukocytosis and anemia. PT with INR and to assess for coagulopathy. Comprehensive metabolic profile will be obtained to assess for hepatic function, renal function, and electrolyte abnormality. Urinalysis will be obtained to assess for urinary tract infection. Serum ammonia level will be obtained to assess for hepatic encephalopathy. COVID-19 rapid antigen will be obtained to assess for COVID infection. Influenza A and influenza B antigens will be obtained to assess for influenza infection. X-rays of the lumbar spine will be obtained to assess for lumbar spine fracture. CT scan of the abdomen pelvis will be obtained to assess for intra-abdominal bleeding. History & Record Review Discussion w/independent historian: Other (Family, caregivers) Additional record(s) reviewed:: Prior labs Lab Data Attestation: I reviewed the patient's lab results. Lab results narrative: CBC was reviewed. White blood cell count was slightly low at 3.9. The remainder was within normal limits. Comprehensive metabolic profile showed an elevated bilirubin of 5.9. AST was normal, ALT was normal. Anion gap was normal. Electrolytes were normal. BUN and creatinine were normal. PT was INR and PTT were reviewed. Pro time was mildly elevated at 18.9. INR is 1.6. PTT was slightly elevated at 37.6. Serum ammonia level was reviewed and was only slightly elevated at 37. This was improved compared to previous levels. COVID- 19 rapid antigen was reviewed and was negative. Influenza A and influenza B rapid antigens were reviewed and were negative. Urinalysis does not show any evidence of urinary tract infection or hematuria. Labs: Laboratory Results - last 24 hr 12/28/22 12/28/22 12/28/22 13:01 13:01 13:01 WBC 3.9 L RBC 4.29 Hgb 14.4 Hct 41.2 MCV 96.0 MCH 33.6 H MCHC 35.0 RDW Std Deviation 53.6 H RDW Coeff of Rick 15.5 H Plt Count 105 L MPV 10.6 Immature Gran % (Auto) 0.500 Neut % (Auto) 69.7 Lymph % (Auto) 17.1 L [place] % (Auto) 7.4 Eos % (Auto) 4.8 Baso % (Auto) 0.5 Absolute Neuts (auto) 2.7 Absolute Lymphs (auto) 0.67 L Nucleated RBC % 0 PT 18.9 H INR 1.6 APTT 37.6 H Sodium 136 Potassium 4.3 Chloride 104 Carbon Dioxide 26.0 Anion Gap 6 BUN 8 Creatinine 0.58 Est GFR (MDRD) Af Amer 153 Est GFR (MDRD) Non-Af 127 BUN/Creatinine Ratio 13.9 Glucose 95 Calcium 8.7 Total Bilirubin 5.90 H AST 36 ALT 30 Alkaline Phosphatase 106 Ammonia Total Protein 6.5 Albumin 3.5 Globulin 3.0 Albumin/Globulin Ratio 1.2 Urine Color Urine Clarity Urine pH Ur Specific [place] Urine Protein Urine Glucose (UA) Urine Ketones Urine Occult Blood Urine Nitrite Urine Bilirubin Urine Urobilinogen Ur Leukocyte Esterase Urine RBC Urine WBC Ur Squamous Epith Cells Urine Bacteria Urine Mucus 12/28/22 12/28/22 13:01 13:11 WBC RBC Hgb Hct MCV MCH MCHC RDW Std Deviation RDW Coeff of Rick Plt Count MPV Immature Gran % (Auto) Neut % (Auto) Lymph % (Auto) [place] % (Auto) Eos % (Auto) Baso % (Auto) Absolute Neuts (auto) Absolute Lymphs (auto) Nucleated RBC % PT INR APTT Sodium Potassium Chloride Carbon Dioxide Anion Gap BUN Creatinine Est GFR (MDRD) Af Amer Est GFR (MDRD) Non-Af BUN/Creatinine Ratio Glucose Calcium Total Bilirubin AST ALT Alkaline Phosphatase Ammonia 37.0 H Total Protein Albumin Globulin Albumin/Globulin Ratio Urine Color Yellow Urine Clarity Sl. Cloudy Urine pH 7.0 Ur Specific [place] 1.005 Urine Protein Negative Urine Glucose (UA) Normal Urine Ketones Negative Urine Occult Blood Negative Urine Nitrite Negative Urine Bilirubin Negative Urine Urobilinogen 4 H Ur Leukocyte Esterase Negative Urine RBC 0 SEEN Urine WBC 0 SEEN Ur Squamous Epith Cells 0-5 SEEN Urine Bacteria 0 SEEN Urine Mucus 0 SEEN Radiography Diagnostic Testing: Clinical Impression(s) from Imaging Studies Abdomen/Pelvis CT 12/28/22 12:45 IMPRESSION: Findings in keeping with the portal hypertension with large amount of varices seen in the region of the splenic hilum as well as the periportal region. The portal vein is nonvisualized and presumably obstructed. There is recannulization of the umbilical vein in the venous collaterals in the anterior cutaneous tissue. Marked degree of splenomegaly. Multiple gallstones. Electronically Signed: Nilson Balderas MD at 14:21 EST , Lumbar Spine X-Ray 12/28/22 13:50 IMPRESSION: Degenerative changes of the spine, as detailed above. Exaggerated lumbar lordosis. Great 1 anterolisthesis of L5 on S1 with spondylolysis of the pars interarticularis of the L5 vertebrae. Gallstones. Splenomegaly. Electronically Signed: Nilson Balderas MD at 14:14 EST , CT scan of the abdomen pelvis was obtained. There is portal hypertension and esophageal varices. There are also varices in the splenic hilum in the periportal region. There is no free fluid or free air. This was interpreted by the radiologist and was also independently reviewed by myself. X-rays of the lumbar spine were obtained. There are 2 views. On my independent interpretation, there is a grade 1 spondylolisthesis of L5 on S1. There are some degenerative changes noted. There is no acute process noted. Radiologist also interpreted the x-rays and agrees. Treatment and Re-Evaluation :: Patient is feeling better on reevaluation. Family and caregivers were advised of the findings. Caregivers and family were instructed to follow-up with her primary care physician in 5 to 7 days. Patient and family and caregivers understand and are agreeable with the plan. All questions were answered. Discharge Plan Triage Chief Complaint: Syncope ED Provider: Red Hernandez Dx/Rx/DC Orders Clinical Impression: Syncope, Lumbosacral strain Instructions: ED Back Sprain/Strain, ED Fainting, Uncertain Cause Prescriptions: No Action multivitamin with minerals 1 EACH tablet 1 ea PO DAILY Lactobacillus acidophilus 1 EACH capsule 1 ea PO DAILY michelle (Zingiber officinalis) 500 MG capsule 500 mg PO DAILY lorazepam 0.5 MG tablet 0.5 mg PO TID Qty: 7 0RF Rx Instructions: PRN sertraline 25 MG tablet 25 mg PO QHS pantoprazole 40 mg tablet,delayed release (DR/EC) 40 mg PO DAILY Label Comments: TAKE 1 TABLET BY MOUTH TWICE DAILY BEFORE MEAL(S) propranolol 20 mg tablet 20 mg PO DAILY Label Comments: TAKE 1 TABLET BY MOUTH TWICE DAILY lactulose [Constulose] 10 gram/15 mL solution 15 ml PO TID Label Comments: TAKE 15ML BY MOUTH 3 TIMES DAILY. TAKE TO ACHIEVE FOR 2 TO 3 BOWEL MOVEMENTS DAILY. ADJUST DOSE BASED ON NUMBER OF BOWEL MOVEMENTS DAILY. Stand Alone Forms: Work Status Form Primary Care Provider: Mariela Kan Referrals: Mariela Kan MD [Primary Care Provider] - 3-5 Days Disposition Disposition: Home, Self Care Discharge Date/Time: 12/28/22 15:07
== END 2022-12-28 15:07 | disposition home or self-care (01) ==
PROVIDERS: Emergency Provider Emergency Medicine; PCP Internal Medicine; Visit Provider Emergency Medicine
DX: R55 Syncope and collapse (principal); S39.012A Strain of muscle, fascia and tendon of lower back, initial encounter; R16.0 Hepatomegaly, not elsewhere classified; Z79.899 Other long term (current) drug therapy; X58.XXXA Exposure to other specified factors, initial encounter; Y92.69 Other specified industrial and construction area as the place of occurrence of the external cause; Z87.898 Personal history of other specified conditions
CPT/HCPCS: 72100; 74177; 80053; 81001; 82140; 85025; 85610; 85730; 87428; 99285; Q9967; A4216

== ENCOUNTER → 2023-02-05 | Outpatient (CLI) | payer MEDICAID, SELFPAY ==
[2023-02-05 09:31] LABS: Absolute Lymphocyte Count 0.27 X10^3/uL (0.83-4.51); Absolute Neutrophil Count 1.2 X10^3/uL (2.0-7.7); Basophil# 0.01 X10^3/uL; Basophil% 0.6 % (0-1); Eosinophil# 0.09 X10^3/uL; Eosinophils% 5.1 % (0-5); Hematocrit 36.7 % (37-47); Hemoglobin 12.5 g/dL (12.0-15.0); Lymphocyte # 0.27 X10^3/ul (0.83-4.51); Lymphocyte % 15.2 % (19-41); Mean Corp Hgb Conc 34.1 g/dL (32-36); Mean Corpuscular Hgb 33.9 pg (27.0-32.0); Mean Corpuscular Volume 99.5 fL (81-99); Monocyte# 0.16 X10^3/uL; NRBC Flagged by Analyzer 0 % (0-5); Neutrophil # 1.24 X10^3/uL (2.7-7.7); Neutrophil % 69.5 % (47-70); POSITIVE COUNT YES; POSITIVE DIFFERENTIAL YES; Platelet Count 62 K/mm3 (150-450); RBC Distribution Width CV 15.9 % (11.6-14.6); RBC Distribution Width SD 56.5 fl (35.1-43.9); Red Blood Count 3.69 M/mm3 (4.2-5.4); White Blood Count 1.8 K/mm3 (4.4-11.0)
[2023-02-05 09:32] LABS: Erythrocyte Sedimentation Rate < 1 mm/hr (0-30)
[2023-02-05 09:38] LABS: International Normalized Ratio 1.8; Prothrombin Time (Protime)PT. 20.1 SECONDS (11.7-14.9)
[2023-02-05 09:56] LABS: Vitamin B12 1412 pg/mL (211-911); Vitamin D,25 Hydroxy 31.3 ng/mL
[2023-02-05 10:14] LABS: ALB/GLOB Ratio 1.2 RATIO (0.9-2.4); AST(SGOT) 36 U/L (15-37); Alanine Aminotransfer ALT/SGPT 30 U/L (13-56); Alkaline Phosphatase 112 U/L (45-117); Anion Gap 5 (5-15); BUN 8 mg/dL (7-18); BUN/Creat Ratio 15.1 RATIO (10-20); CRP < 2.90 mg/L (0.0-3.0); Calcium,Total 8.3 mg/dL (8.5-10.1); Chloride 105 mmol/L (98-107); Creatinine, Serum 0.53 mg/dL (0.55-1.02); EST Glomerular Filtration Rate 139 mL/min (>60); Est Glom Filt Rate - Afr Amer 169 mL/min (>60); Globulin 2.5 g/dL (2.2-4.2); Glucose 94 mg/dL (74-106); LDH 319 U/L (84-246); Potassium 3.8 mmol/L (3.5-5.1); Protein, Total 5.5 g/dL (6.4-8.2); Sodium Level 136 mmol/L (136-145); Thyroid Stim Hormone (TSH) 1.33 uIU/mL (0.358-3.74)
[2023-02-05 10:22] LABS: Differential Indicated SCAN CRITERIA MET
[2023-02-05 10:23] LABS: Platelet Estimate MOD DEC (ADEQ); Red Cell Morphology NORM C+C NORMAL (NORM C&C)
[2023-02-08 15:58] LABS: Anti-Mitochondrial AB <20.0 Units (0.0-20.0)
[2023-02-08 19:43] LABS: Endomysial Antibody IgA Negative (Negative); Immunoglobulin A 185 mg/dL (87-352); t-Transglutaminase IgA <2 U/mL (0-3)
[2023-02-09 12:41] LABS: Pathologist Review Reviewed
[2023-02-09 17:07] LABS: AFP, Tumor Marker 2.3 ng/mL (0.0-6.4); Anti-Smooth Muscle ABS 94 Units (0-19); Ceruloplasmin 13.4 mg/dL (19.0-39.0); Cytoplasmic Ab (C-ANCA) <1:20 titer (Neg:<1:20); Immunoglobulin A 187 mg/dL (87-352); Immunoglobulin E 22 IU/mL (6-495); Immunoglobulin G 1290 mg/dL (586-1602); Immunoglobulin M 38 mg/dL (26-217); Perinuclear Ab (P-ANCA) <1:20 titer (Neg:<1:20)
== END | disposition home or self-care (01) ==
LOC: LAB 09:09
PROVIDERS: PCP Internal Medicine; Referring Provider Internal Medicine Gastroenterology; Visit Provider Internal Medicine Gastroenterology
DX: K74.60 Unspecified cirrhosis of liver (principal)
CPT/HCPCS: 36415; 80053; 82105; 82140; 82306; 82390; 82607; 82652; 82746; 82784; 82785; 83516; 83615; 84443; 85025; 85610; 85652; 86140; 86255; 86256

== ENCOUNTER → 2023-02-16 | Outpatient (CLI) | payer MEDICAID, SELFPAY ==
--- NOTE | 2023-02-16 07:19 | MRI_ITS ---
STUDY: MRI ABDOMEN WITH AND WITHOUT CONTRAST REASON FOR EXAM: Female, 32 years old. cirrhosis* Patient is mentally challenged and unable to following breathing instructions* Best images possible TECHNIQUE: Standardized fat and water weighted pulse sequences were obtained in all 3 orthogonal planes post contrast administration. 18 ml clariscan was administered for the contrast portion of the examination. Limited by motion artifact. COMPARISON: CT 12/28/2022 FINDINGS: The visualized lung bases are unremarkable. The visualized portions of the heart are within normal limits. No obvious hepatic masses, although limited given motion artifact. Recanalized periumbilical vein with multiple upper abdominal/paraesophageal varicosities as seen on prior CT. The main/right/left portal veins are not clearly patent/opacified. In particular, the left portal vein appears to be thrombosed on image 47 of series 1601 although not well visualized given motion artifact. A very large collateral vein exits the falciform ligament on image 91 of series 17 and extends inferiorly to the left lower abdomen/groin, as seen on prior CT. There are multiple gallstones. No obvious gallbladder wall thickening. Severe splenomegaly with craniocaudal dimension measuring 24 cm. Normal pancreas. No intrahepatic bile duct dilation. However, there are small round filling defects in the lower common duct as seen on image 19 of series 11. Mild dilation of the extrahepatic bile duct measuring up to 7.5 mm. Normal bilateral adrenal glands. Normal right kidney. Normal left kidney. Visualized hollow viscus structures are grossly unremarkable. Normal abdominal aorta. Normal inferior vena cava. Normal retroperitoneum. Normal abdominal wall. No bone marrow edema. MRI/MRI Abd WITH and W/O Contrast IMPRESSION: 1. Severe splenomegaly. 2. Chronic portal vein thrombosis with venous recanalization with abdominal and paraesophageal varicosities. 3. No obvious hepatic mass, limited given motion artifact. 4. Lower common duct choledocholithiasis. No intrahepatic bile duct dilation. Electronically Signed: Iván Rainey (Brooks), at 16:18 EDT ,
--- NOTE | 2023-02-16 08:42 | US_ITS ---
INDICATION: cirhosis EXAMINATION: Ultrasound US Abdomen Complete TECHNIQUE: Paul-scale and color Doppler imaging was performed of the abdomen. COMPARISON: None. FINDINGS: LIVER: There is moderately increased coarsened echotexture. No focal hepatic lesion. No intrahepatic biliary ductal dilatation. There is no free fluid. GALLBLADDER AND BILIARY TREE: There are multiple gallstones visualized with posterior acoustical shadowing. Gallbladder wall thickness is 0.51 cm. Negative ultrasonographic Ramirez sign.. The proximal common bile duct measures 6 mm, which is within normal limits for the patient''s age. SONOGRAPHIC RAMIREZ''S SIGN: Negative. PANCREAS: No focal abnormality is demonstrated in the pancreas. No pancreatic ductal dilatation. SPLEEN: 23.9 x 9.7 x 9.7 cm. There are varices seen regional to the splenic hilum. KIDNEYS: 1.7 x 1.3 x 1.4 cm simple cyst midpole left kidney. There is no hydronephrosis. No shadowing calculus, focal lesion, or perinephric collection is demonstrated. VESSELS: Submitted longitudinal images of the intra-abdominal aorta demonstrate no gross abnormalities and are unremarkable. The IVC is patent. US/Abdomen Complete IMPRESSION: Fatty infiltration of the liver. Cholelithiasis with borderline gallbladder wall thickening. There is also borderline common duct dilatation. While ultrasonographic Ramirez sign is negative findings raise question of cholecystitis possibly chronic. Severe splenomegaly with multiple varices seen region of the splenic hilum. This raises question of portal hypertension. Simple cyst left kidney 1.7 x 1.3 x 1.4 cm. Electronically Signed: Brennen Alexander MD, TUTU at 17:27 EDT ,
== END | disposition home or self-care (01) ==
PROVIDERS: PCP Internal Medicine; Referring Provider Internal Medicine Gastroenterology; Visit Provider Internal Medicine Gastroenterology
DX: K74.60 Unspecified cirrhosis of liver (principal)
CPT/HCPCS: 74183; 76700; A9575; A4216

== ENCOUNTER 2024-01-23 18:54 | Inpatient (IN) | payer MEDICAID, SELFPAY ==
[2024-01-23 18:54] VITALS: BP 121/67; PULSE 58; RESP 22; TEMP 36.6; O2SAT 92; BMI 38.0
--- NOTE | 2024-01-23 19:18 | EKG12_ITS ---
Test Reason : CP Blood Pressure : / mmHG Vent. Rate : 060 BPM Atrial Rate : 060 BPM P-R Int : 208 ms QRS Dur : 082 ms QT Int : 432 ms P-R-T Axes : 080 035 063 degrees QTc Int : 432 ms Normal sinus rhythm Normal ECG Confirmed by Sunday Plummer ([id number]), editorial manager NANY BARKSDALE ([id number]) on 01/25/2024 10:15:06 AM Referred By: Confirmed By:Sunday Plummer
[2024-01-23 19:57] LABS: International Normalized Ratio 1.7
[2024-01-23 19:58] LABS: Partial Thromboplast Time 37.3 Seconds (24.1-36.2)
[2024-01-23 20:00] VITALS: BP 125/65; PULSE 61; RESP 18; TEMP 36.6; O2SAT 92
--- NOTE | 2024-01-23 20:01 | EX.ED.DYSGE1 ---
HPI History of Present Illness Chief Complaint: Shortness of Breath Informant: patient and parent Narrative Narrative: 33-year-old female presenting to the emergency room with her parents. Patient has a history of liver cirrhosis splenomegaly pancytopenia and developmental and cognitive delay. Family notes that she is more swollen in her legs and her face. Patient states her abdomen feels more swollen. She states she feels short of breath. Patient family notes that normally she is much more talkative and active and she seems more slow and confused today. She has had problems with her ammonia levels in the past. She states she has been taking her lactulose. She is seeing DrLorena Shelton from gastroenterology in the past. No reported fevers. No known heart conditions. [facility] Medical History Anemia Developmental disorder Esophageal varices with hemorrhage Gaucher disease Hepatic encephalopathy Hepatomegaly Leukopenia Non-alcoholic cirrhosis Pancytopenia Splenomegaly Thrombocytopenia Home Medications Lactobacillus acidophilus 500 million cell capsule 1 ea PO DAILY 01/08/20 [History Last Taken Unknown] michelle (Zingiber officinalis) 500 mg capsule 500 mg PO DAILY 01/08/20 [History Last Taken Unknown] lorazepam 0.5 mg tablet 0.5 mg PO TID #7 tabs 01/08/20 [Rx Last Taken Unknown] multivitamin with minerals 1 ea PO DAILY 01/08/20 [History Last Taken Unknown] sertraline 25 mg tablet 25 mg PO QHS depression 02/12/21 [History Last Taken Unknown] lactulose 10 gram/15 mL oral solution (Constulose) 15 ml PO TID 11/08/22 [History Last Taken Unknown] pantoprazole 40 mg tablet,delayed release 40 mg PO DAILY 11/08/22 [History Last Taken Unknown] propranolol 20 mg tablet 20 mg PO DAILY 11/08/22 [History Last Taken Unknown] blood sugar diagnostic (True Metrix Glucose Test Strip) 01/23/24 [History Last Taken Unknown] blood-glucose meter (True Metrix Air Glucose Meter) 01/23/24 [History Last Taken Unknown] glucose 4 gram chewable tablet 16 g PO PRN PRN diabetes mellitus 01/23/24 [History Last Taken Unknown] lancets 33 gauge (TRUEplus Lancets) 01/23/24 [History Last Taken Unknown] Allergy/AdvReac Type Severity Reaction Status Date / Time oseltamivir Allergy Other Verified 01/23/24 18:58 Family History Other VTE (venous thromboembolism) Surgical History History of liver biopsy Social History household members: family Smoking Status: Never smoker alcohol intake: never substance use type: does not use ROS ROS ED Constitutional Constitutional ED: Denies chills, fever(s) or weight loss Eyes Eyes: Denies change in vision or diplopia ENT ENT ED: Denies ear pain, rhinorrhea or sore throat Cardiovascular Cardiovascular: Denies chest pain, orthopnea, palpitations or racing heartbeat Respiratory/Chest Respiratory/Chest: Reports dyspnea and dyspnea on exertion; Denies cough or orthopnea Gastrointestinal Gastrointestinal: Reports abdominal pain; Denies diarrhea, nausea or vomiting Genitourinary Genitourinary ED: Denies dysuria, hematuria or urinary frequency Musculoskeletal Musculoskeletal: Reports other Details: Bilateral leg swelling ; Denies arthralgias or myalgias Integumentary Denies abscess or rash Neurologic Neurologic: Reports other Details: Fatigue and confusion generalized weakness ; Denies headache(s) Psychiatric Psychiatric: Denies anxiety, depression, suicidal ideation or suicidal thoughts Endocrine Endocrinology: Denies polydipsia, polyphagia or polyuria Allergic/Immunologic Allergic/Immunologic ED: Denies mouth swelling, tongue swelling or urticaria EXAM Physical Exam Const Vital Signs: 01/23/24 18:54 01/23/24 20:00 01/23/24 21:00 Temperature 98 F 97.9 F Temperature Source Temporal Temporal Pulse Rate 58 L 61 95 Respiratory Rate 22 H 18 22 H Blood Pressure 121/67 H 125/65 H 136/87 H Blood Pressure Mean 85 85 103 Pulse Ox 92 92 95 Oxygen Delivery Method Room Air Room Air Room Air 01/23/24 22:00 Temperature 99.4 F H Temperature Source Oral Pulse Rate 59 L Respiratory Rate 22 H Blood Pressure 105/58 L Blood Pressure Mean 73 Pulse Ox 91 Oxygen Delivery Method Room Air Positive well nourished, well developed and obese General Appearance ED: well developed Nutritional Appearance: obese HEENT Reports normocephalic, head/scalp atraumatic and moist mucous membranes Eyes PERRL and EOMs intact bilaterally Eyes Narrative: Scleral icterus Neck no lymphadenopathy, supple and no JVD Resp clear to auscultation bilaterally Resp Narrative: Patient appears slightly tachypneic Cardio regular rate, regular rhythm and no murmurs GI Inspection: abdominal distention Auscultation: normoactive bowel sounds Palpation: soft; Negative for tender Back/Spine no CVA tenderness and normal ROM Extremity General Extremety ED: Yes edema General Extremity: edema bilateral lower extremity Details: moderate Neuro CN's II-XII intact bilaterally Sensorium / Orientation: alert Motor Exam: strength 5/5 throughout Skin no rashes or lesions noted and no wounds MDM MDM MDM Narrative Medical decision making narrative: EKG is a normal sinus rhythm with no ischemic pattern. Chest x-ray shows pulmonary edema. Patient with a leukopenia and thrombocytopenia which is not new. Hemoglobin today 12.5. INR 1.7. Total bilirubin 3.7 ammonia substantially elevated 155 LDH 309 test negative lipase 44 AST and ALT 31/20 alk phos 109 urinalysis shows no overt infection. She received some lactulose as well and was Lasix. Patient received supplemental oxygen. I do not believe the patient needs any emergent paracentesis tonight. Plan is admission to the hospital History & Record Review Discussion w/independent historian: Patient and Family Additional record(s) reviewed:: Prior labs Lab Data Attestation: I reviewed the patient's lab results. Labs: Laboratory Results - last 24 hr 01/23/24 01/23/24 19:39 20:04 WBC 1.6 L RBC 3.83 L Hgb 12.5 Hct 37.3 MCV 97.4 MCH 32.6 H MCHC 33.5 RDW Std Deviation 51.7 H RDW Coeff of Rick 14.3 Plt Count 69 L MPV 11.9 Immature Gran % (Auto) 0.600 Neut % (Auto) 53.1 Lymph % (Auto) 25.6 [place] % (Auto) 11.3 H Eos % (Auto) 8.8 H Baso % (Auto) 0.6 Absolute Neuts (auto) 0.9 L Absolute Lymphs (auto) 0.41 L Nucleated RBC % 0 Differential Comment SCANNED Diff Path Review May foll PT 20.0 H INR 1.7 APTT 37.3 H Sodium 139 Potassium 4.6 Chloride 111 H Carbon Dioxide 25.0 Anion Gap 3 L BUN 25 H Creatinine 0.88 Estim Creat Clear Calc 102.97 Est GFR (MDRD) Af Amer 94 Est GFR (MDRD) Non-Af 78 BUN/Creatinine Ratio 28.5 H Glucose 102 Calcium 8.3 L Total Bilirubin 3.70 H Direct Bilirubin 0.72 H AST 31 ALT 20 Alkaline Phosphatase 109 Ammonia 155.0 H Lactate Dehydrogenase 309 H Total Protein 6.2 L Albumin 2.7 L Globulin 3.5 Amylase 26 Lipase 44 Serum , Qual NEGATIVE Urine Color Carin Urine Clarity Cloudy Urine pH 5.0 Ur Specific [place] 1.020 Urine Protein 100 H Urine Glucose (UA) Normal Urine Ketones 15 H Urine Occult Blood 250 H Urine Nitrite Negative Urine Bilirubin 3 H Urine Urobilinogen 8 H Ur Leukocyte Esterase 100 H Urine RBC 10-25 SEEN Urine WBC 5-10 SEEN Ur Squamous Epith Cells 0-5 SEEN Amorphous Sediment 1+ URATE Urine Bacteria 0 SEEN Urine Mucus 0 SEEN Urine Yeast 1+ Radiography Diagnostic Testing: Clinical Impression(s) from Imaging Studies Chest X-Ray 01/23/24 20:40 IMPRESSION: Pulmonary edema. Electronically Signed: Cristi Joseph MD at 21:04 EDT Reading Location ID and State: [facility] / [place] , Service support , EKG Initial EKG: Attestation: I personally reviewed and interpreted this EKG as follows: Comments: Normal sinus rhythm ventricular rate of 60 bpm Discharge Plan Disposition Disposition: Acute Care Hospital [facility] Discharge Date/Time: 01/23/24 23:18
[2024-01-23 20:02] LABS: Absolute Lymphocyte Count 0.41 X10^3/uL (0.83-4.51); Absolute Neutrophil Count 0.9 X10^3/uL (2.0-7.7); Basophil# 0.01 X10^3/uL; Basophil% 0.6 % (0-1); Eosinophil# 0.14 X10^3/uL; Eosinophils% 8.8 % (0-5); Hematocrit 37.3 % (37-47); Hemoglobin 12.5 g/dL (12.0-15.0); Internal QC Validated? YES +Cl - CLEAR BKGD; Lymphocyte # 0.41 X10^3/ul (0.83-4.51); Lymphocyte % 25.6 % (19-41); Mean Corp Hgb Conc 33.5 g/dL (32-36); Mean Corpuscular Hgb 32.6 pg (27.0-32.0); Mean Corpuscular Volume 97.4 fL (81-99); Mean Platelet Vol. 11.9 fl (6.2-12.0); Monocyte# 0.18 X10^3/uL; Monocyte% 11.3 % (0-10); NRBC Flagged by Analyzer 0 % (0-5); Neutrophil # 0.85 X10^3/uL (2.7-7.7); Neutrophil % 53.1 % (47-70); POSITIVE COUNT YES; POSITIVE DIFFERENTIAL YES; Platelet Count 69 K/mm3 (150-450); Pregnancy, Serum, hCG Quali. NEGATIVE Negative; RBC Distribution Width CV 14.3 % (11.6-14.6); RBC Distribution Width SD 51.7 fl (35.1-43.9); Red Blood Count 3.83 M/mm3 (4.2-5.4); White Blood Count 1.6 K/mm3 (4.4-11.0)
[2024-01-23 20:07] LABS: AST(SGOT) 31 U/L (15-37); Alanine Aminotransfer ALT/SGPT 20 U/L (13-56); Albumin, Serum 2.7 g/dL (3.2-5.0); Alkaline Phosphatase 109 U/L (45-117); Amylase 26 U/L (25-115); Anion Gap 3 (5-15); BUN 25 mg/dL (7-18); BUN/Creat Ratio 28.5 RATIO (10-20); Bilirubin, Direct 0.72 mg/dL (0.00-0.30); Calcium,Total 8.3 mg/dL (8.5-10.1); Chloride 111 mmol/L (98-107); Creatinine, Serum 0.88 mg/dL (0.55-1.02); EST Glomerular Filtration Rate 78 mL/min (>60); Est Glom Filt Rate - Afr Amer 94 mL/min (>60); Estimated Creatinine Clearance 102.97 ml/min; Globulin 3.5 g/dL (2.2-4.2); Glucose 102 mg/dL (74-106); LDH 309 U/L (84-246); Lipase 44 U/L (13-75); Potassium 4.6 mmol/L (3.5-5.1); Protein, Total 6.2 g/dL (6.4-8.2); Sodium Level 139 mmol/L (136-145)
[2024-01-23 20:09] LABS: Differential Indicated SCAN CRITERIA MET
[2024-01-23 20:09] LABS: Bacteria 0 SEEN /hpf (None Seen); Mucous, Urine 0 SEEN /hpf (<or=2+)
[2024-01-23 20:18] LABS: Differential Comment SCANNED
[2024-01-23 20:24] LABS: Color, Urine Amber (Yellow); Glucose, Dipstick Normal (Normal); Ketone-Dipstick 15 mg/dl (Negative); Leukocyte Esterase-Dipstick 100 /ul (Negative); Nitrite-Dipstick Negative (Negative); Occult Blood-Urine 250 /ul (Negative); Protein-Dipstick 100 mg/dl (Negative); Urine Clarity Cloudy (Clear); Urine Urobilinogen 8 mg/dl (Normal)
--- NOTE | 2024-01-23 20:40 | RAD_ITS ---
STUDY: X-RAY CHEST REASON FOR EXAM: Female, 33 years old. dyspnea TECHNIQUE: XR Chest 1 View COMPARISON: 11/08/2022 FINDINGS: There is a right pleural effusion. Diffuse increased pulmonary markings. There is moderate cardiac enlargement. Normal mediastinum and madie. Normal visualized pulmonary arteries. Normal visualized aortic arch and descending thoracic aorta. Normal visualized thoracic spine. Normal visualized ribs, clavicles, and shoulders. There are no acute findings of the upper abdomen. RAD/Chest 1 View (Portable) IMPRESSION: Pulmonary edema. Electronically Signed: Cristi Joseph MD at 21:04 EDT ,
[2024-01-23] MEDS: Furosemide 100 MG/10 ML Vial 60 MG IV (20:52)
[2024-01-23] MEDS: Lactulose 20 GM/30 ML UDC 30 GM PO ×2 (20:54→23:58)
[2024-01-23 20:55] LABS: Urine Bilirubin Dipstick 3 mg/dL (Negative)
[2024-01-23 21:00] VITALS: BP 136/87; PULSE 95; RESP 22; O2SAT 95
[2024-01-23 21:00] LABS: Red Blood Cells-Urine 10-25 SEEN /hpf (0-5); Squamous Epithelial Cells - UA 0-5 SEEN /hpf (5-10); White Blood Cells 5-10 SEEN /hpf (0-5); Yeast-Urine 1+ /hpf (None Seen)
[2024-01-23 21:01] LABS: Amorphous Sediment 1+ URATE
--- NOTE | 2024-01-23 21:35 | HP.PCM.HOS_ITS ---
[facility] - General General Date of Admission: 01/23/24 Date of Service: 01/23/24 Chief Complaint: Worsening SOB, Generalized Edema and Confusion. HPI Narrative TARAS DC, is a 33 F with a past medical history of MRLissetDD; with intellectual delay, Gaucher's disease, obesity; with BMI of 38.1 this admission, depression with anxiety, GERD, chronic pancytopenia, chronic hepatosplenomegaly; with history of portal vein thrombosis, history of esophageal varices with hemorrhage followed by Dr. Shelton of gastroenterology and history of WOLFE; with subsequent cirrhosis and coagulopathy with INR 1.7 who presents to [facility] ER complaining of worsening shortness of breath, generalized edema and confusion. Ms. Dc is not a fully reliable historian at this time so information was gathered from chart, medical staff and computer. According to the records her symptoms began approximately 2 to 3 days prior to admission with a gradual onset of swelling in her face and legs followed by dyspnea on exertion that progressed to shortness of breath at rest. Her family informed the ER physician that she is normally much more talkative and seemed more slow and confused throughout the day so they finally decided to bring her in for further evaluation and treatment. They also informed the ER physician that she has had problems with hyperammonemia in the past though she has been taking her lactulose as prescribed. There is no report of fever, chills, nausea, vomiting, chest pain or dysuria. In the ER she was noted to have a urinalysis positive for acute cystitis; with microscopic hematuria complicated by hyperammonemia of 155 ?mol/L present on admission confirmed by clinical evidence of hepatic encephalopathy with an INR of 1.7 present on admission consistent with auto- anticoagulation due to cirrhosis causing poor synthetic function of clotting factors compounded by clinical evidence of ascites with anasarca causing third spacing of fluids including chest x-ray positive for pulmonary edema along with laboratory evidence of severe leukopenia with WBC of 1.6 present on admission and severe thrombocytopenia of 69 present on admission and she was then admitted to the general medical floor for ongoing care for stated expected to be greater than 48 hours. [facility] Medical History Anemia Developmental disorder Esophageal varices with hemorrhage Gaucher disease Hepatic encephalopathy Hepatomegaly Leukopenia Non-alcoholic cirrhosis Pancytopenia Splenomegaly Thrombocytopenia Home Medications Lactobacillus acidophilus 500 million cell capsule 1 ea PO DAILY 01/08/20 [History Last Taken Unknown] michelle (Zingiber officinalis) 500 mg capsule 500 mg PO DAILY 01/08/20 [History Last Taken Unknown] lorazepam 0.5 mg tablet 0.5 mg PO TID #7 tabs 01/08/20 [Rx Last Taken Unknown] multivitamin with minerals 1 ea PO DAILY 01/08/20 [History Last Taken Unknown] sertraline 25 mg tablet 25 mg PO QHS depression 02/12/21 [History Last Taken Unknown] lactulose 10 gram/15 mL oral solution (Constulose) 15 ml PO TID 11/08/22 [History Last Taken Unknown] pantoprazole 40 mg tablet,delayed release 40 mg PO DAILY 11/08/22 [History Last Taken Unknown] propranolol 20 mg tablet 20 mg PO DAILY 11/08/22 [History Last Taken Unknown] blood sugar diagnostic (True Metrix Glucose Test Strip) 01/23/24 [History Last Taken Unknown] blood-glucose meter (True Metrix Air Glucose Meter) 01/23/24 [History Last Taken Unknown] glucose 4 gram chewable tablet 16 g PO PRN PRN diabetes mellitus 01/23/24 [History Last Taken Unknown] lancets 33 gauge (TRUEplus Lancets) 01/23/24 [History Last Taken Unknown] Allergy/AdvReac Type Severity Reaction Status Date / Time oseltamivir Allergy Other Verified 01/23/24 18:58 Family History Other VTE (venous thromboembolism) Surgical History History of liver biopsy Social History household members: family Smoking Status: Never smoker alcohol intake: never substance use type: does not use ROS ROS Narrative Patient has significant hepatic encephalopathy present on admission along with MRDD; intellectual delay making full review of systems not possible at this time. Review of Systems ROS Unobtainable: due to encephalopathy and due to mental condition Vital Signs Vital Signs Vital Signs: 01/23/24 18:54 01/23/24 20:00 Temperature 98 F 97.9 F Temperature Source Temporal Temporal Pulse Rate 58 L 61 Respiratory Rate 22 H 18 Blood Pressure 121/67 H 125/65 H Blood Pressure Mean 85 85 Pulse Ox 92 92 Oxygen Delivery Method Room Air Room Air Weight Weight: 222 lb Body Mass Index (BMI) 38.0 Physical Exam Const alert, no apparent distress and average body habitus General Appearance: cooperative Orientation / Consciousness: confused and disoriented HEENT normocephalic, head/scalp atraumatic, hearing grossly normal bilaterally and moist oral mucous membranes Eyes Eyes Narrative: Scleral icterus noted. Neck no lymphadenopathy and supple Resp normal respiratory effort, no retractions, no use of accessory muscles and clear to auscultation bilaterally Cardio regular rate and regular rhythm GI normal to inspection, nondistended, normoactive bowel sounds, soft to palpation, non-tender and non-distended Extremity Extremity Narrative: 1-2+ bilateral lower extremity edema. Skin Skin Narrative: Patient has evidence of severe jaundice and scleral icterus. Neuro CN's II-XII intact bilaterally, moves all extremities and no focal motor deficits Sensorium / Orientation: awake, alert and oriented to person Speech: speech normal Motor Exam: strength 5/5 throughout Psych affect normal Results Medical Records Data Attestation: I reviewed the patient's medical records Lab / Micro Data Attestation: I reviewed the patient's lab results. 01/23/24 19:39 01/23/24 19:39 Labs: Laboratory Results - last 24 hr 01/23/24 19:39: WBC 1.6 L, RBC 3.83 L, Hgb 12.5, Hct 37.3, MCV 97.4, MCH 32.6 H, MCHC 33.5, RDW Std Deviation 51.7 H, RDW Coeff of Rick 14.3, Plt Count 69 L, MPV 11.9, Immature Gran % (Auto) 0.600, Neut % (Auto) 53.1, Lymph % (Auto) 25.6, [place] % (Auto) 11.3 H, Eos % (Auto) 8.8 H, Baso % (Auto) 0.6, Absolute Neuts (auto) 0.9 L, Absolute Lymphs (auto) 0.41 L, Nucleated RBC % 0, Differential Comment SCANNED, Diff Path Review February, PT 20.0 H, INR 1.7, APTT 37.3 H, Sodium 139, Potassium 4.6, Chloride 111 H, Carbon Dioxide 25.0, Anion Gap 3 L, BUN 25 H, Creatinine 0.88, Estim Creat Clear Calc 102.97, Est GFR (MDRD) Af Amer 94, Est GFR (MDRD) Non-Af 78, BUN/Creatinine Ratio 28.5 H, Glucose 102, Calcium 8.3 L, Total Bilirubin 3.70 H, Direct Bilirubin 0.72 H, AST 31, ALT 20, Alkaline Phosphatase 109, Ammonia 155.0 H, Lactate Dehydrogenase 309 H, Total Protein 6.2 L, Albumin 2.7 L, Globulin 3.5, Amylase 26, Lipase 44, Serum , Qual NEGATIVE 01/23/24 20:04: Urine Color Carin, Urine Clarity Cloudy, Urine pH 5.0, Ur Specific [place] 1.020, Urine Protein 100 H, Urine Glucose (UA) Normal, Urine Ketones 15 H, Urine Occult Blood 250 H, Urine Nitrite Negative, Urine Bilirubin 3 H, Urine Urobilinogen 8 H, Ur Leukocyte Esterase 100 H, Urine RBC 10-25 SEEN, Urine WBC 5-10 SEEN, Ur Squamous Epith Cells 0-5 SEEN, Amorphous Sediment 1+ URATE, Urine Bacteria 0 SEEN, Urine Mucus 0 SEEN, Urine Yeast 1+ Imaging Radiology Impression Chest X-Ray 01/23/24 20:40 IMPRESSION: Pulmonary edema. Electronically Signed: Cristi Joseph MD at 21:04 EDT Reading Location ID and State: [facility]– [place] / [place] , Service support , Assessment & Plan Assessment/Plan (1) Acute cystitis with hematuria: (2) Hyperammonemia: (3) Hepatic encephalopathy: (4) Liver cirrhosis secondary to WOLFE: (5) Leukopenia: QUALIFIERS: Leukopenia type: unspecified Qualified Code(s): D72.819 - Decreased white blood cell count, unspecified (6) Thrombocytopenia: PLAN: Plan 1. Acute cystitis; with microscopic hematuria - Admit to general medical floor. Continue broad-spectrum antibiotics with IV Rocephin and await culture and sensitivity data. 2. Hyperammonemia of 155 ?mol/L present on admission confirmed by clinical evidence of hepatic encephalopathy in the setting of WOLFE; with chronic hepatosplenomegaly and history of portal vein thrombosis with history of esophageal varices with hemorrhage followed by Dr. Shelton of gastroenterology with subsequent cirrhosis and coagulopathy with INR 1.7 complicating #1 - Continue lactulose at 30 cc TID, restrict diet overnight and recheck ammonia level in a.m. to follow trend. We will also start Xifaxan, give multivitamin daily and then check INR daily to ensure continued stability. Finally, we will consult Dr. Shelton of gastroenterology to see this patient on rounds in a.m. for further recommendations with help appreciated in advance. 3. Severe leukopenia with WBC of 1.6 present on admission and severe thrombocytopenia of 69 present on admission in the setting of chronic pancytopenia compounding #1 & #2 - Continue supportive care and check daily CBC to follow trend in case platelet transfusion or granulocyte colony-stimulating factor becomes necessary. 4. Pulmonary edema evident on admission CXR with ascites and anasarca adding to the pathology of #1 - #3 - Give Albumin 25g IV once and then give Lasix 40 mg IV once in an effort to diurese fluids that have been third spaced. Check BNP and check echocardiogram to evaluate LVEF. 5. History of MR?DD; with intellectual delay adding to the pathology of #1 - #4 - Noted. Continue supportive care. 6. Gaucher's disease - Noted. 7. Obesity; with BMI of 38.1 this admission - Weight loss will be recommended. Check TSH. 8. Depression with anxiety - Continue home medications as previous. 9. GERD - Continue PPI. 10. DVT prophylaxis - SCD's only with patient auto-anticoagulated with INR 1.7 present on admission relatively contraindicating other blood thinning agents. Total time: Approximately 55 minutes. Charges/Coding Visit Charges Inpatient E&M: 29964 Init Hosp L2
[2024-01-23 22:00] VITALS: BP 105/58; PULSE 59; RESP 22; TEMP 37.4; O2SAT 91
[2024-01-23 22:06] VITALS: BP 105/58; PULSE 57; RESP 22; TEMP 37.4; O2SAT 92; O2SAT 93
[2024-01-23 23:17] VITALS: BMI 36.1
[2024-01-23 23:25] VITALS: BP 128/65; PULSE 57; RESP 20; TEMP 36.6; O2SAT 95
[2024-01-23] MEDS: Albumin Human 25% (100 mL) 25 GM/100 ML BAG IV (23:51)
[2024-01-23] MEDS: Furosemide 40 MG/4 ML Vial IV (23:55)
--- NOTE | 2024-01-23 23:55 | CON.PCM.GI_ITS ---
HPI Consult Data Date of Consult: 01/23/24 HPI Narrative Reason for Consultation: Decompensated cirrhosis HPI Narrative: TARAS LAWRENCE, is a 33 F who presents auto mental status and shortness of breath. She is known to GI service with a history of MRDD; with intellectual delay, Gaucher's disease, obesity; with BMI of 38.1 this admission, depression with anxiety, GERD, chronic pancytopenia, chronic hepatosplenomegaly; with history of portal vein thrombosis, history of esophageal varices with hemorrhage. She has a history of WOLFE; with subsequent cirrhosis and coagulopathy with INR 1.7 who presents to [facility] ER complaining of worsening shortness of breath, generalized edema and confusion. Her symptoms began with with a gradual onset of swelling in her face and legs followed by dyspnea on exertion that progressed to shortness of breath at rest. Her GI course has been complicated by frequent hyperammonemia secondary to noncompliance with lactulose lactulose as prescribed. She has had episodes of mild ascites without SBP. She did previous imaging did not show any signs of hepatocellular carcinoma. She has had no pulmonary or renal complications from her cirrhosis to date. There was no report of fever, chills, nausea, vomiting, chest pain or dysuria. In the ER she was noted to have a urinalysis positive for acute cystitis; with microscopic hematuria complicated by hyperammonemia of 155 ?mol/L present on admission confirmed by clinical evidence of hepatic encephalopathy with an INR of 1.7 present on admission consistent with auto-anticoagulation due to cirrhosis causing poor synthetic function of clotting factors compounded by clinical evidence of ascites with anasarca causing third spacing of fluids including chest x-ray positive for pulmonary edema along with laboratory evidence of severe leukopenia with WBC of 1.6 present on admission and severe thrombocytopenia of 69 present on admission and she was then admitted to the general medical floor for ongoing care for stated expected to be greater than 48 hours. I was consulted for decompensated cirrhosis [facility] Medical History Anemia Developmental disorder Esophageal varices with hemorrhage Gaucher disease Hepatic encephalopathy Hepatomegaly Leukopenia Non-alcoholic cirrhosis Pancytopenia Splenomegaly Thrombocytopenia Home Medications Lactobacillus acidophilus 500 million cell capsule 1 ea PO DAILY 01/08/20 [History Last Taken Unknown] michelle (Zingiber officinalis) 500 mg capsule 500 mg PO DAILY 01/08/20 [History Last Taken Unknown] lorazepam 0.5 mg tablet 0.5 mg PO TID #7 tabs 01/08/20 [Rx Last Taken Unknown] multivitamin with minerals 1 ea PO DAILY 01/08/20 [History Last Taken Unknown] sertraline 25 mg tablet 25 mg PO QHS depression 02/12/21 [History Last Taken Unknown] lactulose 10 gram/15 mL oral solution (Constulose) 15 ml PO TID 11/08/22 [History Last Taken Unknown] pantoprazole 40 mg tablet,delayed release 40 mg PO DAILY 11/08/22 [History Last Taken Unknown] propranolol 20 mg tablet 20 mg PO DAILY 11/08/22 [History Last Taken Unknown] blood sugar diagnostic (True Metrix Glucose Test Strip) 01/23/24 [History Last Taken Unknown] blood-glucose meter (True Metrix Air Glucose Meter) 01/23/24 [History Last Taken Unknown] glucose 4 gram chewable tablet 16 g PO PRN PRN diabetes mellitus 01/23/24 [History Last Taken Unknown] lancets 33 gauge (TRUEplus Lancets) 01/23/24 [History Last Taken Unknown] Allergy/AdvReac Type Severity Reaction Status Date / Time oseltamivir Allergy Other Verified 01/23/24 18:58 Family History Other VTE (venous thromboembolism) Surgical History History of liver biopsy Social History household members: family Smoking Status: Never smoker alcohol intake: never substance use type: does not use ROS ROS Narrative Patient has significant hepatic encephalopathy present on admission along with MRDD; intellectual delay making full review of systems not possible at this time. Review of Systems ROS Unobtainable: due to encephalopathy and due to mental condition Physical Exam Const alert, no apparent distress and average body habitus General Appearance: cooperative Orientation / Consciousness: confused and disoriented HEENT normocephalic, head/scalp atraumatic, hearing grossly normal bilaterally and moist oral mucous membranes Eyes Eyes Narrative: Scleral icterus noted. Neck no lymphadenopathy and supple Resp normal respiratory effort, no retractions, no use of accessory muscles and clear to auscultation bilaterally Cardio regular rate and regular rhythm GI normal to inspection, nondistended, normoactive bowel sounds, soft to palpation, non-tender and non-distended Extremity Extremity Narrative: 1-2+ bilateral lower extremity edema. Skin Skin Narrative: Patient has evidence of severe jaundice and scleral icterus. Neuro CN's II-XII intact bilaterally, moves all extremities and no focal motor deficits Sensorium / Orientation: awake, alert and oriented to person Speech: speech normal Motor Exam: strength 5/5 throughout Psych affect normal Lab / Micro Data 01/24/24 05:35 01/24/24 05:35 Labs: Laboratory Results - last 24 hr 01/23/24 19:39: WBC 1.6 L, RBC 3.83 L, Hgb 12.5, Hct 37.3, MCV 97.4, MCH 32.6 H, MCHC 33.5, RDW Std Deviation 51.7 H, RDW Coeff of Rick 14.3, Plt Count 69 L, MPV 11.9, Immature Gran % (Auto) 0.600, Neut % (Auto) 53.1, Lymph % (Auto) 25.6, [place] % (Auto) 11.3 H, Eos % (Auto) 8.8 H, Baso % (Auto) 0.6, Absolute Neuts (auto) 0.9 L, Absolute Lymphs (auto) 0.41 L, Nucleated RBC % 0, Differential Comment SCANNED, Diff Path Review Reviewed, PT 20.0 H, INR 1.7, APTT 37.3 H, Sodium 139, Potassium 4.6, Chloride 111 H, Carbon Dioxide 25.0, Anion Gap 3 L, BUN 25 H, Creatinine 0.88, Estim Creat Clear Calc 102.97, Est GFR (MDRD) Af Amer 94, Est GFR (MDRD) Non-Af 78, BUN/Creatinine Ratio 28.5 H, Glucose 102, Calcium 8.3 L, Total Bilirubin 3.70 H, Direct Bilirubin 0.72 H, AST 31, ALT 20, Alkaline Phosphatase 109, Ammonia 155.0 H, Lactate Dehydrogenase 309 H, Total Protein 6.2 L, Albumin 2.7 L, Globulin 3.5, Amylase 26, Lipase 44, Serum , Qual NE GATIVE 01/23/24 20:04: Urine Color Carin, Urine Clarity Cloudy, Urine pH 5.0, Ur Specific [place] 1.020, Urine Protein 100 H, Urine Glucose (UA) Normal, Urine Ketones 15 H, Urine Occult Blood 250 H, Urine Nitrite Negative, Urine Bilirubin 3 H, Urine Urobilinogen 8 H, Ur Leukocyte Esterase 100 H, Urine RBC 10-25 SEEN, Urine WBC 5-10 SEEN, Ur Squamous Epith Cells 0-5 SEEN, Amorphous Sediment 1+ URATE, Urine Bacteria 0 SEEN, Urine Mucus 0 SEEN, Urine Yeast 1+ 01/24/24 05:35: WBC 1.2 L*, RBC 3.25 L, Hgb 10.6 L, Hct 31.4 L, MCV 96.6, MCH 32.6 H, MCHC 33.8, RDW Std Deviation 49.6 H, RDW Coeff of Rick 14.0, Plt Count 59 L, MPV 11.6, Immature Gran % (Auto) 0.000, Neut % (Auto) 46.9 L, Lymph % (Auto) 35.7, [place] % (Auto) 10.4 H, Eos % (Auto) 6.1 H, Baso % (Auto) 0.9, Absolute Neuts (auto) 0.5 L, Absolute Lymphs (auto) 0.41 L, Nucleated RBC % 0, Diff Path Review Reviewed, PT 21.8 H, INR 1.9, Sodium 143, Potassium 3.8, Chloride 112 H, Carbon Dioxide 24.0, Anion Gap 7, BUN 24 H, Creatinine 0.92, Estim Creat Clear Calc 102.70, Est GFR (MDRD) Af Amer 89, Est GFR (MDRD) Non-Af 74, BUN/Creatinine Ratio 26.2 H, Glucose 89, Calcium 8.3 L, Phosphorus 4.0, Magnesium 1.8, Iron 102, TIBC 163 L, Iron Saturation 62.6 H, Ferritin 150, Total Bilirubin 4.10 H, AST 26, ALT 17, Alkaline Phosphatase 83, B-Natriuretic Peptide 824.7 H, Total Protein 5.6 L, Albumin 2.8 L, Globulin 2.8, Albumin/Globulin Ratio 1.0, Vitamin B12 1740 H, Folate 15.40, TSH 4.36 H, Free T4 1.60 H Imaging Radiology Impression Chest X-Ray 01/23/24 20:40 IMPRESSION: Pulmonary edema. Electronically Signed: Cristi Joseph MD at 21:04 EDT Reading Location ID and State: [facility] / [place] , Service support , Assessment & Plan Assessment/Plan (1) Acute cystitis with hematuria: (2) Hyperammonemia: (3) Hepatic encephalopathy: (4) Liver cirrhosis secondary to WOLFE: (5) Leukopenia: QUALIFIERS: Leukopenia type: unspecified Qualified Code(s): D72.819 - Decreased white blood cell count, unspecified (6) Thrombocytopenia: PLAN: Plan [age]-year-old with Gaucher's disease complicated by portal hypertension and decompensated cirrhosis with hyperammonia anemia, ascites, encephalopathy, pancytopenia, portal hypertension and esophageal varices 1. Acute cystitis; with microscopic hematuria possibly causing decompensated cirrhosis-current MELD is low at 14 which is a good prognosis. She is a child [place] class B at this time. Continue broad-spectrum antibiotics with IV Rocephin and await culture and sensitivity data. 2. Hyperammonemia of 155 ?mol/L present on admission confirmed by clinical evidence of hepatic encephalopathy in the setting of WOLFE; with chronic hepatosplenomegaly and history of portal vein thrombosis with history of esophageal varices with hemorrhage with subsequent cirrhosis and coagulopathy with INR 1.7 complicating #1 - Continue lactulose at 30 cc TID, restrict diet overnight and recheck ammonia level in a.m. to follow trend. Agree with Xifaxan, give multivitamin daily and then check INR daily to ensure continued stability. Low protein diet. 3. Severe leukopenia with WBC of 1.6 present on admission and severe thrombocytopenia of 69 present on admission in the setting of chronic pancytopenia likely secondary to worsening cirrhosis. 4. Pulmonary edema evident on admission CXR with ascites and anasarca adding to the pathology of #1 - #3 - Give Albumin 25g IV once and then give Lasix 40 mg IV once in an effort to diurese fluids that have been third spaced. Check BNP and check echocardiogram to evaluate LVEF. 5. Recommend upper endoscopy to evaluate upper GI tract to see if her anemia is contributing to her encephalopathy. Charges/Coding Visit Charges Inpatient E&M: 98189 Init Hosp L3
[2024-01-23] MEDS: 0.9% Saline Lock 10 ML Syringe IV (23:56)
[2024-01-23] MEDS: rifAXIMin 550 MG Tablet PO (23:58)
[2024-01-24] VITALS (11 sets, daily range): BP systolic 117–138; BP diastolic 55–70; PULSE 60–94; RESP 16–18; TEMP 36.9–37.2; O2SAT 92–94; BMI 36.0
--- NOTE | 2024-01-24 03:35 | ECHOD_ITS ---
Version 2 Reason For Study: CHF Procedure This was a 2D Doppler, Color Flow transthoracic echocardiogram. Exam performed portable in patient room. Left Ventricle Normal LV size. Mild concentric left ventricular hypertrophy. The left ventricular ejection fraction is 65 %. Diastolic function is indeterminate. Right Ventricle Normal right ventricle. Atria The left atrium is severely enlarged. The right atrium is moderately enlarged. Mitral Valve Mild mitral annular calcification. Mild (1+) mitral valve insufficiency. Tricuspid Valve Moderate (2+) tricuspid valve insufficiency. Right ventricular systolic pressure estimated to be 48 mmHg. Aortic Valve Trisinus/trileaflet aortic valve. Pulmonic Valve The pulmonic valve is not well visualized. Great Vessels Normal sized aortic root. Pericardium/Pleural No pericardial effusion. MMode/2D Measurements & Calculations LVIDd: 5.7 cm IVSd: 1.3 cm Ao root diam: 3.1 cm LVIDs: 3.4 cm LVPWd: 1.1 cm LA dimension: 5.6 cm RVDd: 4.9 cm FS: 40.8 % LAV(MOD-bp): 124.2 ml LVAd ap4: 39.5 cm2 SV(MOD-sp4): 99.5 ml LAV(MOD-bp) Indexed: 59.3 ml/m2 LVLd ap4: 8.6 cm LAV(MOD-sp2): 99.6 ml EDV(MOD-sp4): 150.9 ml LAV(MOD-sp4): 130.7 ml EDV(sp4-el): 155.1 ml LVAs ap4: 20.2 cm2 LVLs ap4: 6.6 cm ESV(MOD-sp4): 51.4 ml ESV(sp4-el): 52.2 ml EF(MOD-sp4): 65.9 % EF(sp4-el): 66.4 % SV(sp4-el): 102.9 ml LA A4 area: 35.0 cm2 RA A4 area: 27.9 cm2 TAPSE: 3.3 cm Time Measurements MV dec time: 0.21 sec Doppler Measurements & Calculations MV E max robert: 108.3 cm/sec Lat Peak E' Robert: 12.7 cm/sec Med Peak E' Robert: 10.8 cm/sec MV A max robert: 55.7 cm/sec E/E' lat: 8.5 E/E' med: 10.1 MV E/A: 1.9 MV V2 max: 115.8 cm/sec MV P1/2t max robert: 115.3 cm/sec Ao V2 max: 145.3 cm/sec MV max P.4 mmHg MV P1/2t: 76.3 msec Ao max P.4 mmHg MV V2 mean: 63.4 cm/sec MV dec slope: 442.3 cm/sec2 Ao V2 mean: 101.2 cm/sec MV mean P.9 mmHg Ao mean P.7 mmHg MV V2 VTI: 37.1 cm MVA(P1/2t): 2.9 cm2 Ao V2 VTI: 34.0 cm AV (velocity ratio): 0.89 LV V1 max: 128.6 cm/sec PA V2 max: 102.9 cm/sec TR max robert: 317.6 cm/sec LV V1 max P.6 mmHg TR max P.3 mmHg LV V1 mean P.0 mmHg LV V1 mean: 94.1 cm/sec LV V1 VTI: 30.2 cm ECHO/Echo Complete Interpretation Summary Mild concentric left ventricular hypertrophy. The left ventricular ejection fraction is 65 %. Diastolic function is indeterminate. The left atrium is severely enlarged. The right atrium is moderately enlarged. Mild (1+) mitral valve insufficiency. Moderate (2+) tricuspid valve insufficiency. Right ventricular systolic pressure estimated to be 48 mmHg. Ordering Physician: Sylvester Barahona Performed By: Juvenal Guerin RCS
[2024-01-24 05:51] LABS: Absolute Lymphocyte Count 0.41 X10^3/uL (0.83-4.51); Absolute Neutrophil Count 0.5 X10^3/uL (2.0-7.7); Basophil# 0.01 X10^3/uL; Basophil% 0.9 % (0-1); Eosinophil# 0.07 X10^3/uL; Eosinophils% 6.1 % (0-5); Hematocrit 31.4 % (37-47); Hemoglobin 10.6 g/dL (12.0-15.0); Lymphocyte # 0.41 X10^3/ul (0.83-4.51); Lymphocyte % 35.7 % (19-41); Mean Corp Hgb Conc 33.8 g/dL (32-36); Mean Corpuscular Hgb 32.6 pg (27.0-32.0); Mean Corpuscular Volume 96.6 fL (81-99); Mean Platelet Vol. 11.6 fl (6.2-12.0); Monocyte# 0.12 X10^3/uL; Monocyte% 10.4 % (0-10); NRBC Flagged by Analyzer 0 % (0-5); Neutrophil # 0.54 X10^3/uL (2.7-7.7); Neutrophil % 46.9 % (47-70); POSITIVE COUNT YES; POSITIVE DIFFERENTIAL YES; POSITIVE MORPHOLOGY YES; Platelet Count 59 K/mm3 (150-450); RBC Distribution Width SD 49.6 fl (35.1-43.9); Red Blood Count 3.25 M/mm3 (4.2-5.4)
[2024-01-24 06:14] LABS: International Normalized Ratio 1.9; Prothrombin Time (Protime)PT. 21.8 SECONDS (11.7-14.9)
[2024-01-24] MEDS: Lactulose 20 GM/30 ML UDC 30 GM PO ×3 (06:14→20:57)
[2024-01-24] MEDS: 0.9% Saline Lock 10 ML Syringe IV ×2 (06:14→07:07)
[2024-01-24 06:45] LABS: AST(SGOT) 26 U/L (15-37); Alanine Aminotransfer ALT/SGPT 17 U/L (13-56); Albumin, Serum 2.8 g/dL (3.2-5.0); Alkaline Phosphatase 83 U/L (45-117); Anion Gap 7 (5-15); BUN 24 mg/dL (7-18); BUN/Creat Ratio 26.2 RATIO (10-20); Calcium,Total 8.3 mg/dL (8.5-10.1); Chloride 112 mmol/L (98-107); Creatinine, Serum 0.92 mg/dL (0.55-1.02); EST Glomerular Filtration Rate 74 mL/min (>60); Est Glom Filt Rate - Afr Amer 89 mL/min (>60); Globulin 2.8 g/dL (2.2-4.2); Glucose 89 mg/dL (74-106); Magnesium 1.8 mg/dL (1.6-2.6); Potassium 3.8 mmol/L (3.5-5.1); Protein, Total 5.6 g/dL (6.4-8.2); Sodium Level 143 mmol/L (136-145); Thyroid Stim Hormone (TSH) 4.36 uIU/mL (0.358-3.74)
[2024-01-24 07:02] LABS: White Blood Count 1.2 K/mm3 (4.4-11.0)
[2024-01-24] MEDS: Ondansetron 4 MG/2 ML Vial IV (07:07)
[2024-01-24 08:58] LABS: Ferritin 150 ng/mL (8-252); Iron 102 ug/dL (50-170); Iron Binding Capacity,Total 163 ug/dL (250-450); PERCENT IRON SATURATION 62.6 % (15.0-55.0)
[2024-01-24 09:04] LABS: Vitamin B12 1740 pg/mL (211-911)
[2024-01-24 09:05] LABS: BNP,B-Type NATRIURETIC PEPTIDE 824.7 pg/mL (0-100)
[2024-01-24] MEDS: Pantoprazole Sodium 40 MG Tablet PO (09:53)
[2024-01-24] MEDS: Multivitamins,Ther W-Minerals Tablet 1 TABLET PO (09:53)
[2024-01-24] MEDS: rifAXIMin 550 MG Tablet PO ×2 (09:53→20:56)
[2024-01-24] MEDS: Lactobacillis Acidophilus 1 CAP PO (09:53)
[2024-01-24] MEDS: Propranolol 10 MG Tablet 20 MG PO (09:53)
[2024-01-24] MEDS: 0.9% Normal Saline (250mL Bag) 250 ML 15 ML IV (10:04)
[2024-01-24] MEDS: Ceftriaxone 1 GM/50 ML BAG IV (10:04)
[2024-01-24] MEDS: Lactated Ringers 1,000 ML 15 ML IV (11:54)
--- NOTE | 2024-01-24 12:29 | CASEMGMT ---
INDIRA CM to pt room for initial assessment. Pt is off of the floor at this time, will follow.
--- NOTE | 2024-01-24 12:36 | PCM.PN.HOSP ---
Reason for Visit Reason for Visit: Diagnoses Thrombocytopenia, unspecified (01/23/24) Decreased white blood cell count, unspecified (01/23/24) Disorder of urea cycle metabolism, unspecified (01/23/24) Chronic pulmonary edema (01/23/24) Unspecified cirrhosis of liver (01/23/24) Nonalcoholic steatohepatitis (WOLFE) (01/23/24) Hepatic encephalopathy (01/23/24) Acute cystitis with hematuria (01/23/24) Subjective Subjective No acute events overnight. Patient seen at bedside this morning, mother present. Patient was sitting up comfortably in bed and making appropriate eye contact with me. She was not able to answer questions appropriately, only gave unintelligible responses but per mother she is closer to her baseline mental status than on admission. No other acute concerns this morning. Objective Data Objective Data Vital Signs: Vital Signs Temp Pulse Resp BP Pulse Ox O2 Del Method 98.8 F 62 18 138/70 H 94 Room Air 01/24/24 09:46 01/24/24 11:00 01/24/24 09:46 01/24/24 09:46 01/24/24 09:46 01/24/24 10:06 Oxygen Delivery Method Room Air Weight: 101.6 kg Body Mass Index (BMI) 36.0 Intake & Output: Intake and Output for Last 24 Hours 01/22/24 01/23/24 01/24/24 23:59 23:59 23:59 Intake Total 156.50 / 156.50 Output Total 1000 / 1000 Balance -843.50 / -843.50 Lab / Micro Data 01/24/24 05:35 01/24/24 05:35 Labs: Laboratory Results - last 24 hr 01/23/24 19:39: WBC 1.6 L, RBC 3.83 L, Hgb 12.5, Hct 37.3, MCV 97.4, MCH 32.6 H, MCHC 33.5, RDW Std Deviation 51.7 H, RDW Coeff of Rick 14.3, Plt Count 69 L, MPV 11.9, Immature Gran % (Auto) 0.600, Neut % (Auto) 53.1, Lymph % (Auto) 25.6, [place] % (Auto) 11.3 H, Eos % (Auto) 8.8 H, Baso % (Auto) 0.6, Absolute Neuts (auto) 0.9 L, Absolute Lymphs (auto) 0.41 L, Nucleated RBC % 0, Differential Comment SCANNED, Diff Path Review February jonas, PT 20.0 H, INR 1.7, APTT 37.3 H, Sodium 139, Potassium 4.6, Chloride 111 H, Carbon Dioxide 25.0, Anion Gap 3 L, BUN 25 H, Creatinine 0.88, Estim Creat Clear Calc 102.97, Est GFR (MDRD) Af Amer 94, Est GFR (MDRD) Non-Af 78, BUN/Creatinine Ratio 28.5 H, Glucose 102, Calcium 8.3 L, Total Bilirubin 3.70 H, Direct Bilirubin 0.72 H, AST 31, ALT 20, Alkaline Phosphatase 109, Ammonia 155.0 H, Lactate Dehydrogenase 309 H, Total Protein 6.2 L, Albumin 2.7 L, Globulin 3.5, Amylase 26, Lipase 44, Serum , Qual NEGATIVE 01/23/24 20:04: Urine Color Carin, Urine Clarity Cloudy, Urine pH 5.0, Ur Specific [place] 1.020, Urine Protein 100 H, Urine Glucose (UA) Normal, Urine Ketones 15 H, Urine Occult Blood 250 H, Urine Nitrite Negative, Urine Bilirubin 3 H, Urine Urobilinogen 8 H, Ur Leukocyte Esterase 100 H, Urine RBC 10-25 SEEN, Urine WBC 5-10 SEEN, Ur Squamous Epith Cells 0-5 SEEN, Amorphous Sediment 1+ URATE, Urine Bacteria 0 SEEN, Urine Mucus 0 SEEN, Urine Yeast 1+ 01/24/24 05:35: WBC 1.2 L*, RBC 3.25 L, Hgb 10.6 L, Hct 31.4 L, MCV 96.6, MCH 32.6 H, MCHC 33.8, RDW Std Deviation 49.6 H, RDW Coeff of Rick 14.0, Plt Count 59 L, MPV 11.6, Immature Gran % (Auto) 0.000, Neut % (Auto) 46.9 L, Lymph % (Auto) 35.7, [place] % (Auto) 10.4 H, Eos % (Auto) 6.1 H, Baso % (Auto) 0.9, Absolute Neuts (auto) 0.5 L, Absolute Lymphs (auto) 0.41 L, Nucleated RBC % 0, Diff Path Review February jonas, PT 21.8 H, INR 1.9, Sodium 143, Potassium 3.8, Chloride 112 H, Carbon Dioxide 24.0, Anion Gap 7, BUN 24 H, Creatinine 0.92, Estim Creat Clear Calc 102.70, Est GFR (MDRD) Af Amer 89, Est GFR (MDRD) Non-Af 74, BUN/Creatinine Ratio 26.2 H, Glucose 89, Calcium 8.3 L, Phosphorus 4.0, Magnesium 1.8, Iron 102, TIBC 163 L, Iron Saturation 62.6 H, Ferritin 150, Total Bilirubin 4.10 H, AST 26, ALT 17, Alkaline Phosphatase 83, B-Natriuretic Peptide 824.7 H, Total Protein 5.6 L, Albumin 2.8 L, Globulin 2.8, Albumin/Globulin Ratio 1.0, Vitamin B12 1740 H, Folate 15.40, TSH 4.36 H, Free T4 1.60 H Radiography Diagnostic Testing: Radiology Impression Chest X-Ray 01/23/24 20:40 IMPRESSION: Pulmonary edema. Electronically Signed: Cristi Joseph MD at 21:04 EDT Reading Location ID and State: [facility] / [place] , Service support , Physical Exam Const alert and no apparent distress Constitutional Narrative: Younger female, obese, alert, making appropriate eye contact but not able to answer any questions due to her cognitive delay, sitting up comfortably in bed, in no acute distress. General Appearance: cooperative and comfortable HEENT normocephalic, head/scalp atraumatic, hearing grossly normal bilaterally and nasal mucous membranes and turbinates normal Eyes PERRL, EOMs intact bilaterally and conjunctivae normal Neck full ROM Chest inspection of chest normal Resp normal respiratory effort, normal air movement, no use of accessory muscles and clear to auscultation bilaterally Cardio regular rate, regular rhythm, no murmurs and peripheral pulses 2+ throughout GI GI Narrative: Mildly distended and mildly hard to palpation. Difficult to determine if fluid wave present. Nontender to palpation. Back/Spine normal ROM Extremity normal to inspection, full ROM and no pedal edema Skin no rashes or lesions noted Neuro moves all extremities and no focal motor deficits Assessment & Plan Assessment/Plan (1) Hepatic encephalopathy: (2) Leukopenia: QUALIFIERS: Leukopenia type: unspecified Qualified Code(s): D72.819 - Decreased white blood cell count, unspecified (3) Thrombocytopenia: (4) Decompensation of cirrhosis of liver: PLAN: Plan Patient is a 33-year-old female who presented to [facility] ED on 01/23/2024 with confusion, worsening shortness of breath and edema. 1. Decompensated cirrhosis with hepatic encephalopathy and suspected ascites, history of Gaucher's disease ? Follows with Dr. Shelton in the office. 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 Has been on home lactulose and propranolol. ? Presented with acute decompensation of cirrhosis with hepatic encephalopathy and suspected ascites. Ammonia 155, more elevated than previous. MELD-Na score of 14. Unclear etiology that decompensation, initially had concern for UTI but UA is fairly benign. ? EGD 01/23 showed grade 3 esophageal varices that were banded, portal hypertensive gastropathy, otherwise no acute findings. ? GI following. Continue treatment with lactulose and Xifaxan, monitor bowel movements. Continue propranolol. Orders placed for diagnostic paracentesis to rule out SBP. Will continue ceftriaxone for now. Follow daily MELD-Na score. Continue p.o. PPI twice daily. PT/OT/case management following. Palliative care also consulted per family request. 2. Acute on chronic anemia ? Hemoglobin 12.5 on admit, down trended to 10.6 on 01/23. Baseline hemoglobin 12-13. Iron studies show very mild iron deficiency anemia, B12 and folate normal. ? EGD showed esophageal varices and portal hypertensive gastropathy with no acute bleeding as noted above. ? Trend daily CBC. Continue p.o. PPI twice daily as noted above. 3. Severe leukopenia ? WBC count 1.6 on admit, down trended to 1.2 on 01/23. Has history of leukopenia back in 2020 with WBC counts between 1 and 1.6, similar to on this admission. ? Suspect leukopenia is in part due to infection but complicated by her history of Gaucher's disease. ? Trend daily CBC. Continue treatment with ceftriaxone. 4. Chronic thrombocytopenia ? Platelet count 69 on admit, down trended to 59 on 01/23. Baseline platelets appear to be around 50-80. Presumed secondary to cirrhosis as noted above. ? Trend daily CBC. SCDs for DVT prophylaxis. 5. Concern for UTI ? Concern for acute cystitis on admission given leukopenia and UA that appears mildly infectious. Urine culture pending. Okay to continue treat with ceftriaxone for now. Chronic medical conditions: ? MRDD: Nonverbal at baseline, lives with parents. Complicates hospital course, care and prognosis. ? Obesity: BMI 36 on admit. Complicates hospital course, care and prognosis. ? GERD: Continue PPI as above. ? Anxiety/depression: Stable. Continue home meds. DVT prophylaxis: SCDs CODE STATUS: Full code, unverified Expected disposition: TBD Total clinical time spent by myself addressing the patient's medical issues, reviewing all the data, and collaborating with patient's care team: 35 minutes. Charges/Coding Visit Charges Inpatient E&M: 81098 Subs Hosp L2
--- NOTE | 2024-01-24 12:53 | OP.CCLET_ITS ---
01/24/2024 Mariela [address] [place] [address] Re : Upper GI endoscopy procedure for Ester Dc Dear Dr. Kan This procedure was performed on Wednesday, January 24, 2024. My impressions and recommendations are as follows: Impressions : - Grade III esophageal varices. Incompletely eradicated. Banded. - Portal hypertensive gastropathy. - No gross lesions in the duodenal bulb. - No specimens collected. Recommendations : - Return patient to hospital [facility] for ongoing care. - Resume regular diet. - Continue present medications. My findings are described in the full procedure note, which is enclosed. If I can be of further assistance, please feel free to contact me at . Sincerely, Saulo Shelton, 01/24/2024 12:53:12 PM This report has been signed electronically.
--- NOTE | 2024-01-24 12:53 | OP.EGD_ITS ---
Patient Name: Ester Dc Procedure Date: 01/24/2024 12:29 PM Date of : 1990 Age: 33 Procedure: Upper GI endoscopy Indications: Acute post hemorrhagic anemia, Coffee-ground emesis Providers: Saulo Shelton DO Medicines: Monitored Anesthesia Care Patient Profile: This is a 33 year old female. Refer to note in patient chart for documentation of history and physical. Patient has symptoms of acute nausea and acute vomiting. Complications: No immediate complications. Procedure: Pre-Anesthesia Assessment: - Prior to the procedure, a History and Physical was performed, and patient medications and allergies were reviewed. The patient is competent. The risks and benefits of the procedure and the sedation options and risks were discussed with the patient. All questions were answered and informed consent was obtained. Patient identification and proposed procedure were verified by the physician in the pre-procedure area. Mental Status Examination: alert and oriented. Airway Examination: normal oropharyngeal airway and neck mobility. Respiratory Examination: clear to auscultation. CV Examination: normal. Prophylactic Antibiotics: The patient does not require prophylactic antibiotics. Prior Anticoagulants: The patient has taken no anticoagulant or antiplatelet agents. ASA Grade Assessment: III - A patient with severe systemic disease. After reviewing the risks and benefits, the patient was deemed in satisfactory condition to undergo the procedure. The anesthesia plan was to use monitored anesthesia care (MAC). Immediately prior to administration of medications, the patient was re-assessed for adequacy to receive sedatives. The heart rate, respiratory rate, oxygen saturations, blood pressure, adequacy of pulmonary ventilation, and response to care were monitored throughout the procedure. The physical status of the patient was re-assessed after the procedure. After obtaining informed consent, the endoscope was passed under direct vision. Throughout the procedure, the patient's blood pressure, pulse, and oxygen saturations were monitored continuously. The gastroscope was introduced through the mouth, and advanced to the second part of duodenum. The upper GI endoscopy was accomplished without difficulty. The patient tolerated the procedure well. Scope In: 12:39:09 PM Scope Out: 12:40:53 PM Total Procedure Duration Time 0 hours 1 minute 44 seconds Findings: Grade III varices were found in the lower third of the esophagus. They were 5 mm in largest diameter. Three bands were successfully placed with incomplete eradication of varices. There was no bleeding during the procedure. Moderate portal hypertensive gastropathy was found in the gastric body. No gross lesions were noted in the duodenal bulb. Impression: - Grade III esophageal varices. Incompletely eradicated. Banded. - Portal hypertensive gastropathy. - No gross lesions in the duodenal bulb. - No specimens collected. Recommendation: - Return patient to [facility] for ongoing care. - Resume regular diet. - Continue present medications. Procedure Code(s): --- Professional --- 80913, Esophagogastroduodenoscopy, flexible, transoral; with band ligation of esophageal/gastric varices CPT copyright 2021 [employer]. All rights reserved. The codes documented in this report are preliminary and upon plant inspector review may be revised to meet current compliance requirements. Saulo Shelton DO 01/24/2024 12:53:12 PM This report has been signed electronically. Number of Addenda: 0 Note Initiated On: 01/24/2024 12:29 PM
[2024-01-24 13:31] LABS: Pathologist Review Reviewed
[2024-01-24 13:33] LABS: Pathologist Review Reviewed
--- NOTE | 2024-01-24 14:34 | CASEMGMT ---
Addendum entered by Alice Haque 01/24/24 16:20: Farrukh Light from [facility] states that she does not have an order from Dr. Kan. At this time, Dr. Kelley provides order for Palliative Care Consult. Farrukh also states that their providers do not have privileges to see pts in the hospital. RN CM to pt room and the pt family states that they are OK will the Palliative Care team to just see the pt in home as normal. Palliative Care Order, screening tool, and face sheet sent to Farrukh Light via e-mail. Original Note: RN CM Assessment Face to Face with patient for initial transition planning/care coordination assessment. RN CM introduced self and role at [facility]. Pt is A&O to self (MRDD) and is resting comfortably in bed and is calm. Pt palliative care specialist (Deo Murdock) at bedside. Pt mother at bedside and willing to help answer this RN RITESH questions for initial assessment. Care providers, pharmacy, and demographics verified. Admitting Dx: Acute Cystitis LACE Strata: 1 PCP: Loreta Specialists: Denies Preferred Pharmacy:[facility] Insurance: [facility] Prescription Benefit: Yes LNOK: Angela Dc (Mother), Deo Murdock ([employer] from [facility]) Living Arrangements: Pt lives with her mother, brother, and sister in a single story home without a BM with a flat entrance. ADLs/IADLs: Pt requires assistance with IADLs. Pt mother is her primary caregiver. See below for more information Transportation: [employer]. [facility] provides transport as well. DME: BP cuff. Pt mother states that the pt sits in the tub to wash off. Denies all other DME uses at this time. HHC/SNF: Denies HHC history. Per the pt mom and [employer], the pt goes to [facility]. Plan: Home with the help/ assistance of pt mother and [employer]. Possible Palliative Care. PT eval is pending. Pt mom and pt [employer] Patrol[employer] real estate paralegal that they are comfortable with the pt being DC home once medically ready. The pt mother and [employer] also inquired about Palliative Care. Deo states that Dr. Kan has already placed a Palliative Care Order in for the pt but the [employer] would like the Palliative care team to see the pt in the hospital. Deo states that they have a virtual appt with Palliative on but states she thinks it would be more beneficial for the pt to be seen in person. This INDIRA AWAD completed the screening tool via [employer] and sent a referral to Farrukh Light at this time. Will follow. Maddie Haque RN, CM
--- NOTE | 2024-01-24 14:52 | CHAPLAIN ---
Type of Pastoral Visit _x__ Initial Visit ___ Follow-up Visit ___ On-call Visit ___ General Patient Visit ___ Spiritual Assessment ___ Family Conference ___ Bereavement ___ Rapid Response ___ Code Blue ___ Other (describe below) Pastoral Care Referral From ___ Patient _x__ Family ___ Nurse ___ Physician ___ Slot Operations Director ___ Plug Drill Operator ___ Other (describe below) Sacrament/Intervention _x__ Active listening ___ Anointing ___ Episcopal ___ Bereavement ___ Communion ___ Daniela exploration ___ ___ Life review _x__ Prayer ___ Reconciliation ___ Sacrament of Sick _x__ Supportive presence ___ Wedding ___ Other (describe below) Pastoral Comments patient may have some intellectual insufficiences; patient has ability to follow conversation and to agree to prayer and conversation; mother is in the room but on the phone most of the time; caregiver is also in and out of the room during this visit; pt is able to talk and answer some questions; asking questions to draw patient out and talk; offer of support to mother
[2024-01-24] MEDS: Sertraline 50 MG Tablet 25 MG PO (20:56)
[2024-01-25 03:21] VITALS: BP 119/59; PULSE 60; RESP 16; TEMP 36.8; O2SAT 95
[2024-01-25] MEDS: Lactulose 20 GM/30 ML UDC 30 GM PO (05:35)
[2024-01-25 05:42] LABS: Hematocrit 31.7 % (37-47); Hemoglobin 10.6 g/dL (12.0-15.0); Mean Corp Hgb Conc 33.4 g/dL (32-36); Mean Corpuscular Hgb 32.8 pg (27.0-32.0); Mean Corpuscular Volume 98.1 fL (81-99); Mean Platelet Vol. 12.5 fl (6.2-12.0); POSITIVE COUNT YES; RBC Distribution Width CV 14.2 % (11.6-14.6); RBC Distribution Width SD 51.2 fl (35.1-43.9); Red Blood Count 3.23 M/mm3 (4.2-5.4)
[2024-01-25 05:59] VITALS: BMI 35.9
[2024-01-25 06:02] LABS: Scan Indicated on CBC? Y/N YES- FLAGS NOTED
[2024-01-25 06:04] LABS: Platelet Count 48 K/mm3 (150-450); White Blood Count 0.9 K/mm3 (4.4-11.0)
[2024-01-25 06:08] LABS: ALB/GLOB Ratio 0.9 RATIO (0.9-2.4); AST(SGOT) 26 U/L (15-37); Alanine Aminotransfer ALT/SGPT 18 U/L (13-56); Albumin, Serum 2.5 g/dL (3.2-5.0); Alkaline Phosphatase 74 U/L (45-117); Anion Gap 3 (5-15); BUN 27 mg/dL (7-18); BUN/Creat Ratio 25.2 RATIO (10-20); Calcium,Total 8.5 mg/dL (8.5-10.1); Chloride 114 mmol/L (98-107); Creatinine, Serum 1.07 mg/dL (0.55-1.02); EST Glomerular Filtration Rate 62 mL/min (>60); Est Glom Filt Rate - Afr Amer 75 mL/min (>60); Estimated Creatinine Clearance 88.11 ml/min; Globulin 2.8 g/dL (2.2-4.2); Glucose 92 mg/dL (74-106); Potassium 4.1 mmol/L (3.5-5.1); Protein, Total 5.3 g/dL (6.4-8.2); Sodium Level 144 mmol/L (136-145)
--- NOTE | 2024-01-25 08:00 | US_ITS ---
STUDY: ABDOMINAL ULTRASOUND -4 quadrants REASON FOR VISIT: Female, 33 years old. Possible ascites and paracentesis. TECHNIQUE: Ultrasound evaluation of the 4 quadrants was performed with real-time and static ibarra-scale imaging. TECHNICAL QUALITY: Adequate. COMPARISON: None. FINDINGS: No evidence of ascites. US/Abdomen Limited IMPRESSION: No evidence of ascites. Electronically Signed: Nilson Balderas MD at 15:07 EDT ,
[2024-01-25 08:55] VITALS: BP 133/55; PULSE 57; RESP 20; TEMP 36.9; O2SAT 91
[2024-01-25] MEDS: Propranolol 10 MG Tablet 20 MG PO (08:58)
[2024-01-25] MEDS: Lactobacillis Acidophilus 1 CAP PO (08:58)
[2024-01-25] MEDS: Multivitamins,Ther W-Minerals Tablet 1 TABLET PO (08:58)
[2024-01-25] MEDS: rifAXIMin 550 MG Tablet PO (08:58)
[2024-01-25] MEDS: Pantoprazole Sodium 40 MG Tablet PO (08:58)
[2024-01-25] MEDS: Ceftriaxone 1 GM/50 ML BAG IV (09:44)
[2024-01-25] MEDS: 0.9% Saline Lock 10 ML Syringe IV (09:45)
[2024-01-25 10:45] VITALS: O2SAT 91
[2024-01-25 13:06] LABS: Pathologist Review Reviewed
--- NOTE | 2024-01-25 13:09 | DCINST_ITS ---
Discharge Instructions Diet Discharge Diet: No restrictions Activity Discharge Activity: No Restrictions Weight Bearing Status: Weight bearing as tolerated Follow Up Care Test Results: Test results from this visit will be discussed in further detail at your follow- up appointment, if applicable. Discharge Plan Admission Admit Date/Time: 01/23/24 22:03 Primary Reason for Your Visit: Confusion and worsening shortness of breath Attending Provider: Bridger Kelley Primary Care Provider: Mariela Kan Consulting Providers: Sylvester Barahona; Saulo Shelton Instructions Additional Instructions / Restrictions: Please take cefdinir for 5 more days to complete a 7-day course of antibiotics. Please take Xifaxan as noted below going forward for hepatic encephalopathy. Dr. Shelton's office will call to schedule a follow up appointment for you in the next few weeks. Discharge Orders/Prescriptions Prescriptions: New Xifaxan 550 mg Tablet 550 mg PO BID 30 Days Qty: 60 0RF cefdinir 300 mg capsule 300 mg PO BID 5 Days Qty: 10 0RF Continued multivitamin with minerals 1 EACH tablet 1 ea PO DAILY Lactobacillus acidophilus 1 EACH capsule 1 ea PO DAILY michelle (Zingiber officinalis) 500 MG capsule 500 mg PO DAILY lorazepam 0.5 MG tablet 0.5 mg PO TID Qty: 7 0RF Rx Instructions: PRN sertraline 25 MG tablet 25 mg PO QHS pantoprazole 40 mg tablet,delayed release (DR/EC) 40 mg PO DAILY Patient Comments: TAKE 1 TABLET BY MOUTH TWICE DAILY BEFORE MEAL(S) propranolol 20 mg tablet 20 mg PO DAILY Patient Comments: TAKE 1 TABLET BY MOUTH TWICE DAILY lactulose [Constulose] 10 gram/15 mL solution 15 ml PO TID Patient Comments: TAKE 15ML BY MOUTH 3 TIMES DAILY. TAKE TO ACHIEVE FOR 2 TO 3 BOWEL MOVEMENTS DAILY. ADJUST DOSE BASED ON NUMBER OF BOWEL MOVEMENTS DAILY. (DME) blood-glucose meter [True Metrix Air Glucose Meter] Misc MISCELLANEOUS DAILY (DME) True Metrix Glucose Test Strip Strip 1 strip MISCELLANEOUS DAILY glucose 4 gram tablet,chewable 16 g PO PRN PRN (Reason: diabetes mellitus) (DME) lancets [TRUEplus Lancets] 33 gauge misc MISCELLANEOUS DAILY Referrals / Follow Up: Mariela Kan MD [Primary Care Provider] - Disposition Disposition (needs filled in before D/C Order can be placed): Home, Self Care
--- NOTE | 2024-01-25 13:14 | DS.PCM_ITS ---
Providers Date of Admission: 01/23/24 Date of Discharge: 01/25/24 Primary Care Physician: Dr. Mariela Kan MD Consultations 01/23/24 22:10 Consult: Gastroenterology Routine Consulting Provider: NikitaSaulo Reason for Consult: Hepatic encephalopathy in the setting of WOLFE with cirrhosis. EMERGENT Consult: No MD Notified: Yes Date Notified: 01/24/24 Time Notified: 07:11 Method of Notification: Text Reason For Visit: ACUTE CYSTITIS W/MICROSCOPIC HEMATURE & HEPATIC Diagnosis Discharge Diagnosis (1) Acute cystitis with hematuria: Status: Acute Code(s): N30.01 - Acute cystitis with hematuria (2) Hyperammonemia: Status: Acute Code(s): E72.20 - Disorder of urea cycle metabolism, unspecified (3) Hepatic encephalopathy: Status: Acute Code(s): K76.82 - Hepatic encephalopathy (4) Liver cirrhosis secondary to WOLFE: Status: Acute Code(s): K75.81 - Nonalcoholic steatohepatitis (WOLFE); K74.60 - Unspecified cirrhosis of liver (5) Leukopenia: Status: Acute Code(s): D72.819 - Decreased white blood cell count, unspecified Qualifiers: Leukopenia type: unspecified Qualified Code(s): D72.819 - Decreased white blood cell count, unspecified (6) Thrombocytopenia: Status: Acute Code(s): D69.6 - Thrombocytopenia, unspecified Medications at Discharge Home Medications Lactobacillus acidophilus 500 million cell capsule 1 ea PO DAILY 01/08/20 michelle (Zingiber officinalis) 500 mg capsule 500 mg PO DAILY 01/08/20 lorazepam 0.5 mg tablet 0.5 mg PO TID #7 tabs 01/08/20 multivitamin with minerals 1 ea PO DAILY 01/08/20 sertraline 25 mg tablet 25 mg PO QHS depression 02/12/21 lactulose 10 gram/15 mL oral solution (Constulose) 15 ml PO TID 11/08/22 pantoprazole 40 mg tablet,delayed release 40 mg PO DAILY 11/08/22 propranolol 20 mg tablet 20 mg PO DAILY 11/08/22 blood sugar diagnostic (True Metrix Glucose Test Strip) 01/23/24 blood-glucose meter (True Metrix Air Glucose Meter) 01/23/24 glucose 4 gram chewable tablet 16 g PO PRN PRN diabetes mellitus 01/23/24 lancets 33 gauge (TRUEplus Lancets) 01/23/24 cefdinir 300 mg capsule 300 mg PO BID 5 days #10 caps 01/25/24 rifaximin 550 mg tablet (Xifaxan) 550 mg PO BID 30 days #60 tabs 01/25/24 Hospital Course Operations None Procedures EKG, Transthoracic echo and - (Chest x-ray) Summary of Care Provided Minutes Spent on Discharge: 35 Hospital Course: Patient is a 33-year-old female who presented to [facility] ED on 01/23/2024 with confusion, worsening shortness of breath and edema. Hospital course as noted below. Patient stable for discharge home with no therapy needs on 01/24. 1. 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 Shelton in the office. 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 Has been on home lactulose and propranolol. Presented with acute decompensation of cirrhosis with hepatic encephalopathy and suspected ascites. Ammonia 155, more elevated than previous. MELD-Na score of 14. Unclear etiology that decompensation, initially had concern for UTI but UA is fairly benign. EGD 01/23 showed grade 3 esophageal varices that were banded, portal hypertensive gastropathy, otherwise no acute findings. Attempted ultrasound-guided paracentesis on 01/24 but there was not enough ascitic fluid for drainage. ? GI followed. Treated with IV ceftriaxone while inpatient for concern for SBP and possible UTI as noted below, discharged on p.o. cefdinir to complete 7-day course of antibiotics total. Will continue lactulose and Xifaxan on discharge. Continue home propranolol. Continue p.o. PPI twice daily. Outpatient follow-up with Dr. Shelton in the next few weeks. Palliative care to see the patient in the home in the next few weeks as well. 2. Acute on chronic anemia Hemoglobin 12.5 on admit, down trended to 10.6 on 01/23. Baseline hemoglobin 12- 13. Iron studies show very mild iron deficiency anemia, B12 and folate normal. EGD showed esophageal varices and portal hypertensive gastropathy with no acute bleeding as noted above. ? Hemoglobin remained stable during hospitalization. Continue p.o. PPI twice daily on discharge. 3. Severe leukopenia WBC count 1.6 on admit, down trended to 1.2 on 01/23. Has history of leukopenia back in 2020 with WBC counts between 1 and 1.6, similar to on this admission. Suspect leukopenia is in part due to infection but complicated by her history of Gaucher's disease. ? Remains leukopenic on discharge with WBC count around 1. Recommend repeat CBC in 5 to 7 days to ensure improvement in leukopenia. Treating with antibiotics as noted above. 4. Chronic thrombocytopenia Platelet count 69 on admit, down trended to 59 on 01/23. Baseline platelets appear to be around 50-80. Presumed secondary to cirrhosis as noted above. ? Platelets stable around 50 on discharge. 5. Concern for UTI ? Concern for acute cystitis on admission given leukopenia and UA that appears mildly infectious. Treated with ceftriaxone while inpatient, discharged on p.o. cefdinir as noted above. Chronic medical conditions: ? MRDD: Nonverbal at baseline, lives with parents. Complicates hospital course, care and prognosis. ? Obesity: BMI 36 on admit. Complicates hospital course, care and prognosis. ? GERD: Continue PPI as above. ? Anxiety/depression: Stable. Continue home meds. Total clinical time spent by myself addressing the patient's medical issues, reviewing all the data, and collaborating with patient's care team: 35 minutes. Physical Exam Const alert and no apparent distress Constitutional Narrative: Younger female, obese, alert, appears to be understanding my questions and responds with unintelligible speech, improved from admission, otherwise in no acute distress. General Appearance: cooperative and comfortable HEENT normocephalic, head/scalp atraumatic, hearing grossly normal bilaterally and nasal mucous membranes and turbinates normal Eyes PERRL, EOMs intact bilaterally and conjunctivae normal Neck full ROM Chest inspection of chest normal Resp normal respiratory effort, normal air movement, no use of accessory muscles and clear to auscultation bilaterally Cardio regular rate, regular rhythm, no murmurs and peripheral pulses 2+ throughout GI GI Narrative: Mildly distended but soft to palpation. Nontender to palpation. Back/Spine normal ROM Extremity normal to inspection, full ROM and no pedal edema Skin no rashes or lesions noted Neuro moves all extremities and no focal motor deficits Weight / BMI Weight Weight: 101.2 kg Body Mass Index (BMI) 35.9 ABG / Lab / Microbiology Data 01/25/24 05:19 01/25/24 05:19 Laboratory: Laboratory Results - last 24 hr 01/23/24 19:39: Diff Path Review Reviewed 01/24/24 05:35: Diff Path Review Reviewed 01/25/24 05:19: WBC 0.9 L*, RBC 3.23 L, Hgb 10.6 L, Hct 31.7 L, MCV 98.1, MCH 32.8 H, MCHC 33.4, RDW Std Deviation 51.2 H, RDW Coeff of Rick 14.2, Plt Count 48 L*, MPV 12.5 H, Diff Path Review Reviewed, Sodium 144, Potassium 4.1, Chloride 114 H, Carbon Dioxide 27.0, Anion Gap 3 L, BUN 27 H, Creatinine 1.07 H, Estim Creat Clear Calc 88.11, Est GFR (MDRD) Af Amer 75, Est GFR (MDRD) Non-Af 62, BUN/Creatinine Ratio 25.2 H, Glucose 92, Calcium 8.5, Total Bilirubin 3.00 H, AST 26, ALT 18, Alkaline Phosphatase 74, Total Protein 5.3 L, Albumin 2.5 L, Globulin 2.8, Albumin/Globulin Ratio 0.9 Radiography Diagnostic Testing: Radiology Impression Echocardiogram 01/24/24 03:35 Interpretation Summary Mild concentric left ventricular hypertrophy. The left ventricular ejection fraction is 65 %. Diastolic function is indeterminate. The left atrium is severely enlarged. The right atrium is moderately enlarged. Mild (1+) mitral valve insufficiency. Moderate (2+) tricuspid valve insufficiency. Right ventricular systolic pressure estimated to be 48 mmHg. Ordering Physician: Sylvester Barahona Performed By: Juvenal Guerin RCS D/C Instructions Discharge Diet: No restrictions Weight Bearing Status: Weight bearing as tolerated Meaningful Use Info Meaningful Use Diagnoses (Choose all that apply): None applicable Discharge Plan Admission Admit Date/Time: 01/23/24 22:03 Primary Reason for Your Visit: Confusion and worsening shortness of breath Attending Provider: Bridger Kelley Primary Care Provider: Mariela Kan Consulting Providers: Sylvester Barahona; Saulo Shelton Instructions Additional Instructions / Restrictions: Please take cefdinir for 5 more days to complete a 7-day course of antibiotics. Please take Xifaxan as noted below going forward for hepatic encephalopathy. Dr. Shelton's office will call to schedule a follow up appointment for you in the next few weeks. Discharge Orders/Prescriptions Prescriptions: New Xifaxan 550 mg Tablet 550 mg PO BID 30 Days Qty: 60 0RF cefdinir 300 mg capsule 300 mg PO BID 5 Days Qty: 10 0RF Continued multivitamin with minerals 1 EACH tablet 1 ea PO DAILY Lactobacillus acidophilus 1 EACH capsule 1 ea PO DAILY michelle (Zingiber officinalis) 500 MG capsule 500 mg PO DAILY lorazepam 0.5 MG tablet 0.5 mg PO TID Qty: 7 0RF Rx Instructions: PRN sertraline 25 MG tablet 25 mg PO QHS pantoprazole 40 mg tablet,delayed release (DR/EC) 40 mg PO DAILY Patient Comments: TAKE 1 TABLET BY MOUTH TWICE DAILY BEFORE MEAL(S) propranolol 20 mg tablet 20 mg PO DAILY Patient Comments: TAKE 1 TABLET BY MOUTH TWICE DAILY lactulose [Constulose] 10 gram/15 mL solution 15 ml PO TID Patient Comments: TAKE 15ML BY MOUTH 3 TIMES DAILY. TAKE TO ACHIEVE FOR 2 TO 3 BOWEL MOVEMENTS DAILY. ADJUST DOSE BASED ON NUMBER OF BOWEL MOVEMENTS DAILY. (DME) blood-glucose meter [True Metrix Air Glucose Meter] [facility] MISCELLANEOUS DAILY (DME) True Metrix Glucose Test Strip Strip 1 strip MISCELLANEOUS DAILY glucose 4 gram tablet,chewable 16 g PO PRN PRN (Reason: diabetes mellitus) (DME) lancets [TRUEplus Lancets] 33 gauge [facility] MISCELLANEOUS DAILY Referrals / Follow Up: Mariela Kan MD [Primary Care Provider] - Disposition Disposition (needs filled in before D/C Order can be placed): Home, Self Care Charges/Coding Visit Charges Inpatient E&M: 86448 Disch Hosp >30min
[2024-01-25 13:36] VITALS: BP 127/65; PULSE 83; RESP 18; TEMP 37; O2SAT 92
--- NOTE | 2024-01-25 13:39 | CASEMGMT ---
Farrukh Nadege from Palliative Care notified that the pt is getting DC today. Farrukh states that she will reach out to the family to schedule an appt. INDIRA CM to pt room and family updated and agree with this plan. Pt family states that they still feel comfortable with the pt discharging home today with their help. Denies further needs at this time.
[2024-01-25 13:54] VITALS: BP 127/65; PULSE 83; RESP 18; TEMP 37; O2SAT 92
--- NOTE | 2024-01-28 15:35 | ED.RN ---
PT MOTHER CALLED IN TO ED 01/28/24 WITH A QUESTION REGARDING PT PRESCRIPTION. THIS RN ACCESSED PT CHART AND TRANSFERRED PHONE CALL TO MED SURG.
== END 2024-01-25 14:18 | disposition home or self-care (01) | DRG 463 ==
LOC: ED 19:14 → MS3 22:26
PROVIDERS: Internal Medicine Gastroenterology; Admitting Provider Internal Medicine; Emergency Provider Emergency Medicine; PCP Internal Medicine; Visit Provider Hospitalist
PROC: 0DJ08ZZ Inspection of Upper Intestinal Tract, Via Natural or Artificial Opening Endoscopic (ICD-10-PCS; CPT 43235; principal; 2024-01-24 12:25)
DX: N30.01 Acute cystitis with hematuria (principal); E72.20 Disorder of urea cycle metabolism, unspecified; I85.00 Esophageal varices without bleeding; J81.1 Chronic pulmonary edema; D69.6 Thrombocytopenia, unspecified; E75.22 Gaucher disease; K76.82 Hepatic encephalopathy; K76.6 Portal hypertension; K74.60 Unspecified cirrhosis of liver; D50.9 Iron deficiency anemia, unspecified; K75.81 Nonalcoholic steatohepatitis (NASH); D72.819 Decreased white blood cell count, unspecified; F41.8 Other specified anxiety disorders; K21.9 Gastro-esophageal reflux disease without esophagitis; E66.9 Obesity, unspecified; R18.8 Other ascites; Z68.38 Body mass index [BMI] 38.0-38.9, adult
CPT/HCPCS: 36415; 71045; 76705; 80048; 80053; 80076; 81001; 82140; 82150; 82607; 82728; 82746; 83540; 83550; 83615; 83690; 83735; 83880; 84100; 84439; 84443; 84703; 85025; 85027; 85610; 85730; 93005; 93306; 94668; 97162; 97802; 99285; J7050; J7120; P9047; Q9957; A4216; J1940; J2405

== ENCOUNTER 2024-01-30 19:56 | Inpatient (IN) | payer MEDICAID, SELFPAY ==
[2024-01-30] VITALS (11 sets, daily range): BP systolic 102–145; BP diastolic 62–101; PULSE 56–65; RESP 13–32; TEMP 36.3–36.9; O2SAT 87–95; BMI 37.9
--- NOTE | 2024-01-30 20:40 | RAD_ITS ---
EXAM: XR CHEST, 2 VIEWS CLINICAL INDICATION: dyspnea TECHNIQUE: Frontal and lateral views of the chest. COMPARISON: 01.23.24 FINDINGS: LUNGS AND PLEURAL SPACES: There are bilateral pleural effusions. There is bilateral pneumonia. No pneumothorax. HEART: Enlarged heart. MEDIASTINUM: Central airways and mediastinal contour are unremarkable. BONES/JOINTS: Unremarkable. No acute fracture. SOFT TISSUES: Unremarkable. RAD/Chest PA and Lateral IMPRESSION: Pulmonary edema. Electronically Signed: Cristi Joseph MD at 21:00 EDT ,
--- NOTE | 2024-01-30 20:53 | EKG12_ITS ---
Test Reason : SOB Blood Pressure : / mmHG Vent. Rate : 058 BPM Atrial Rate : 058 BPM P-R Int : 164 ms QRS Dur : 082 ms QT Int : 440 ms P-R-T Axes : 072 037 064 degrees QTc Int : 431 ms Sinus bradycardia Otherwise normal ECG Confirmed by Sunday Plummer ([id number]), society editor NANY BARKSDALE ([id number]) on 01/31/2024 11:14:01 AM Referred By: Confirmed By:Sunday Plummer
[2024-01-30 21:23] LABS: Absolute Lymphocyte Count 0.93 X10^3/uL (0.83-4.51); Absolute Neutrophil Count 2.2 X10^3/uL (2.0-7.7); Basophil# 0.03 X10^3/uL; Basophil% 0.8 % (0-1); Eosinophil# 0.38 X10^3/uL; Eosinophils% 9.6 % (0-5); Hematocrit 41.3 % (37-47); Hemoglobin 14.1 g/dL (12.0-15.0); Lymphocyte # 0.93 X10^3/ul (0.83-4.51); Lymphocyte % 23.4 % (19-41); Mean Corp Hgb Conc 34.1 g/dL (32-36); Mean Corpuscular Hgb 33.3 pg (27.0-32.0); Mean Corpuscular Volume 97.4 fL (81-99); Mean Platelet Vol. 11.6 fl (6.2-12.0); Monocyte# 0.42 X10^3/uL; Monocyte% 10.6 % (0-10); NRBC Flagged by Analyzer 0 % (0-5); Neutrophil # 2.19 X10^3/uL (2.7-7.7); Neutrophil % 55.1 % (47-70); POSITIVE COUNT YES; Platelet Count 86 K/mm3 (150-450); RBC Distribution Width CV 15.2 % (11.6-14.6); RBC Distribution Width SD 53.6 fl (35.1-43.9); Red Blood Count 4.24 M/mm3 (4.2-5.4)
[2024-01-30 21:25] LABS: International Normalized Ratio 1.7; Prothrombin Time (Protime)PT. 19.6 SECONDS (11.7-14.9)
[2024-01-30 21:26] LABS: Differential Indicated SCAN CRITERIA MET; Partial Thromboplast Time 36.8 Seconds (24.1-36.2)
[2024-01-30 21:35] LABS: AST(SGOT) 45 U/L (15-37); Alanine Aminotransfer ALT/SGPT 22 U/L (13-56); Albumin, Serum 2.9 g/dL (3.2-5.0); Alkaline Phosphatase 116 U/L (45-117); Anion Gap 6 (5-15); BUN 20 mg/dL (7-18); BUN/Creat Ratio 25.4 RATIO (10-20); Bilirubin, Direct 0.79 mg/dL (0.00-0.30); Calcium,Total 8.4 mg/dL (8.5-10.1); Chloride 108 mmol/L (98-107); Creatinine, Serum 0.79 mg/dL (0.55-1.02); EST Glomerular Filtration Rate 88 mL/min (>60); Est Glom Filt Rate - Afr Amer 106 mL/min (>60); Estimated Creatinine Clearance 122.67 ml/min; Globulin 3.4 g/dL (2.2-4.2); Glucose 57 mg/dL (74-106); Lipase 69 U/L (13-75); Potassium 4.6 mmol/L (3.5-5.1); Protein, Total 6.3 g/dL (6.4-8.2); Sodium Level 137 mmol/L (136-145); Troponin-I HS 20 pg/mL (3.0-54.0)
--- NOTE | 2024-01-30 21:38 | CT_ITS ---
INDICATION: headache EXAMINATION: CT Head or Brain W/O Contrast Injection TECHNIQUE: Multiple axial images were obtained of the head without intravenous contrast. A radiation dose optimization technique was used for this scan. IV Contrast dosage and agent: None. COMPARISON: Head CT from 11/08/2022 FINDINGS: BRAIN PARENCHYMA: No intra- or extra-axial hemorrhage. No evidence of acute major territorial infarct. No intracranial mass or mass effect. There is preservation of the ibarra/white matter interface. Posterior fossa structures are unremarkable. CSF SPACES: Appropriate for age. No hydrocephalus. Basal cisterns are patent. CALVARIUM, SKULL BASE, PARANASAL SINUSES AND MASTOID AIR CELLS: Calvarium is intact. Left greater than right bilateral maxillary sinus mucosal thickening. Mastoid air cells are well-pneumatized. ORBITS: Unremarkable. CT/Brain/Head without Contrast IMPRESSION: No evidence of acute intracranial abnormality. Bilateral maxillary sinus disease. Electronically Signed: Brennen Chester MD at 22:39 EDT ,
--- NOTE | 2024-01-30 21:38 | CT_ITS ---
STUDY: CTA CHEST REASON FOR EXAM: Female, 33 years old with shortness of breath, cough, history of PE. TECHNIQUE: CT angiogram of chest was performed with the intravenous administration of 100 ml Isovue-370. Post-processing of the angiographic images was performed, with MIP and MPR reconstructions. Individualized dose optimization techniques were used for this CT. COMPARISON: Concurrent CT abdomen and pelvis FINDINGS: PULMONARY ARTERIES: No pulmonary arterial filling defects identified. Evaluation slightly limited by beam hardening artifact and motion degradation. AORTA AND VISUALIZED GREAT VESSELS: No thoracic aortic aneurysm or dissection. Great vessels are patent. HEART AND PERICARDIUM: Heart is enlarged. Small pericardial effusion present. MEDIASTINUM AND DEYSI: No mediastinal or hilar adenopathy. Large distal esophageal varices noted. LUNGS, PLEURA AND LARGE AIRWAYS: Moderate size bilateral pleural effusions with mild bibasilar atelectasis. Mild scarring versus atelectasis right middle lobe. No discrete pulmonary mass. No pneumothorax. BONES: Multilevel discogenic degenerative changes and endplate arthropathy noted. CHEST WALL: Generalized subcutaneous edema. VISUALIZED ABDOMEN: See separate CT abdomen and pelvis report. CT/CTA Chest W/WO Contrast IMPRESSION: 1. No pulmonary embolus identified. 2. Moderate size bilateral pleural effusions with atelectatic changes. 3. Cardiomegaly. 4. Large paraesophageal varices. See separate CT abdomen and pelvis report with findings of portal hypertension. Electronically Signed: Brennen Chester MD at 22:36 EDT ,
--- NOTE | 2024-01-30 21:38 | CT_ITS ---
INDICATION: abdominal distension, history of cirrhosis EXAMINATION: CT Abdomen And Pelvis W/ Contrast Injection TECHNIQUE: Helically acquired images were obtained of the abdomen and pelvis following IV contrast. 2-D reconstructions reviewed. A radiation dose optimization technique was used for this scan. IV Contrast dosage and agent: 100 cc Isovue-370 Oral contrast: None. COMPARISON: Concurrent CTA chest and comparison CT abdomen and pelvis from 12/28/2022. FINDINGS: LOWER CHEST: Moderate size bilateral pleural effusions with bibasilar atelectasis. Large paraesophageal varices again noted. Enlarged heart with small pericardial effusion. LIVER: Fatty attenuation of liver. No discrete mass. GALLBLADDER AND BILIARY TREE: Calcified stones within nondilated gallbladder. No significant biliary ductal dilation. PANCREAS: No discrete mass or peripancreatic edema. SPLEEN: Severe splenomegaly again noted. ADRENAL GLANDS: Unremarkable. KIDNEYS AND URETERS: Kidneys are normal size. No perinephric edema or hydronephrosis. No concerning lesion. PERITONEUM: Small volume ascites. No peritoneal free air detected. RETROPERITONEUM: No retroperitoneal mass or pathologic fluid collection. BOWEL: No evidence of acute appendicitis. No bowel obstruction or significant bowel thickening. No focal inflammatory change. LYMPH NODES: No enlarged mesenteric or retroperitoneal lymph nodes. VESSELS: Numerous enlarged abdominal varices again noted, including recanalized umbilical vein and scattered variceal calcifications. Ventral abdominal wall varices are most prominent at left lower abdomen, extending to left groin. No abdominal aortic aneurysm. URINARY BLADDER: Unremarkable as visualized. REPRODUCTIVE ORGANS: No pelvic masses. ABDOMINAL WALL: Small bilateral inguinal hernias containing fat and ascites. Small umbilical fat hernia. Generalized subcutaneous edema. Ventral abdominal wall varices again noted. BONES: Chronic bilateral L5 pars defects with no significant spondylolisthesis. Chronic L1 and L2 superior endplate compression deformities. CT/Abdomen/Pelvis W IV Cont ONLY IMPRESSION: 1. Anasarca with moderate size bilateral pleural effusions and small volume ascites. 2. Chronic portal hypertension with prominent intra-abdominal varices, paraesophageal varices and severe splenomegaly. 3. Cholelithiasis. 4. Other nonurgent findings within body of report. Electronically Signed: Brennen Chester MD at 22:49 EDT ,
[2024-01-30 21:49] LABS: Differential Comment SCANNED
--- NOTE | 2024-01-30 22:13 | EDS_ITS ---
HPI History of Present Illness Chief Complaint: Shortness of Breath Informant: patient, family and EMS Narrative Narrative: 33-year-old female history of Son hepatic encephalopathy presenting to the emergency room with dyspnea. Patient was recently admitted to the hospital. She was discharged home was on cefdinir which she has only 1 dose left. That was for possible UTI. Family states tonight she was significantly dyspneic. EMS notes a pulse ox of 85%. They states that she was audibly wheezing and administer breathing treatments. Patient continues to experience some shortness of breath. Family notes she continues to have swollen legs. No reported fevers. Patient also notes a cough and a frontal headache. She denies any photophobia or neck pain. 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 Pancytopenia Portal vein thrombosis Splenomegaly Thrombocytopenia Home Medications Lactobacillus acidophilus 500 million cell capsule 1 ea PO DAILY 01/08/20 [History Last Taken Unknown] michelle (Zingiber officinalis) 500 mg capsule 500 mg PO DAILY 01/08/20 [History Last Taken Unknown] lorazepam 0.5 mg tablet 0.5 mg PO TID #7 tabs 01/08/20 [Rx Last Taken Unknown] multivitamin with minerals 1 ea PO DAILY 01/08/20 [History Last Taken Unknown] sertraline 25 mg tablet 25 mg PO QHS depression 02/12/21 [History Last Taken Unknown] lactulose 10 gram/15 mL oral solution (Constulose) 15 ml PO TID 11/08/22 [History Last Taken Unknown] pantoprazole 40 mg tablet,delayed release 40 mg PO DAILY 11/08/22 [History Last Taken Unknown] propranolol 20 mg tablet 20 mg PO DAILY 11/08/22 [History Last Taken Unknown] blood sugar diagnostic (True Metrix Glucose Test Strip) 01/23/24 [History Last Taken Unknown] blood-glucose meter (True Metrix Air Glucose Meter) 01/23/24 [History Last Taken Unknown] glucose 4 gram chewable tablet 16 g PO PRN PRN diabetes mellitus 01/23/24 [History Last Taken Unknown] lancets 33 gauge (TRUEplus Lancets) 01/23/24 [History Last Taken Unknown] cefdinir 300 mg capsule 300 mg PO BID 5 days #10 caps 01/25/24 [Rx Last Taken Unknown] rifaximin 550 mg tablet (Xifaxan) 550 mg PO BID 30 days #60 tabs 01/25/24 [Rx Last Taken Unknown] Allergy/AdvReac Type Severity Reaction Status Date / Time oseltamivir Allergy Other Verified 01/23/24 18:58 Family History (Updated 01/30/24 @ 23:[address] Zohra Araujo MD) Mother Prediabetes Father No problems noted. Surgical History History of liver biopsy Social History household members: family Smoking Status: Never smoker alcohol intake: never substance use type: does not use ROS ROS ED Constitutional Constitutional ED: Denies chills, fever(s) or weight loss Eyes Eyes: Denies blurry vision, change in vision or diplopia ENT ENT ED: Denies ear pain, rhinorrhea or sore throat Cardiovascular Cardiovascular: Denies chest pain, orthopnea, palpitations or racing heartbeat Respiratory/Chest Respiratory/Chest: Reports cough and dyspnea; Denies orthopnea Gastrointestinal Gastrointestinal: Reports diarrhea and other Details: Abdominal swelling ; Denies abdominal pain, nausea or vomiting Genitourinary Genitourinary ED: Denies dysuria, hematuria or urinary frequency Musculoskeletal Musculoskeletal: Denies arthralgias or myalgias Integumentary Denies abscess or rash Neurologic Neurologic: Reports headache(s); Denies weakness Psychiatric Psychiatric: Denies anxiety, depression, suicidal ideation or suicidal thoughts Endocrine Endocrinology: Denies polydipsia, polyphagia or polyuria Allergic/Immunologic Allergic/Immunologic ED: Denies mouth swelling, tongue swelling or urticaria EXAM Physical Exam Const Vital Signs: 01/30/24 19:57 01/30/24 20:05 01/30/24 20:08 Temperature 98.5 F 98.5 F Temperature Source Temporal Temporal Pulse Rate 58 L 57 L Respiratory Rate 13 16 Respiratory Effort Short of Breath Labored Respiratory Depth Shallow Respiratory Pattern Tachypnea Blood Pressure 133/70 H 133/70 H Blood Pressure Mean 91 91 Pulse Ox 87 92 Oxygen Delivery Method Room Air Nasal Cannula Nasal Cannula Oxygen Flow Rate (L/min) 3 2 01/30/24 21:02 01/30/24 21:44 01/30/24 21:45 Temperature 97.5 F L 97.4 F L Temperature Source Temporal Temporal Pulse Rate 61 60 Respiratory Rate 22 H 20 H Respiratory Effort Respiratory Depth Respiratory Pattern Blood Pressure 126/62 H 144/101 H Blood Pressure Mean 83 112 Pulse Ox 94 Oxygen Delivery Method Nasal Cannula Oxygen Flow Rate (L/min) 3 01/30/24 21:59 01/30/24 22:00 01/30/24 22:15 Temperature 97.4 F L 98.0 F 97.9 F Temperature Source Temporal Temporal Temporal Pulse Rate 60 65 57 L Respiratory Rate 32 H 20 H 28 H Respiratory Effort Respiratory Depth Respiratory Pattern Blood Pressure 136/80 H 102/79 145/76 H Blood Pressure Mean 98 87 94 Pulse Ox 94 95 94 Oxygen Delivery Method Oxygen Flow Rate (L/min) 01/30/24 22:30 01/30/24 22:45 01/30/24 23:00 Temperature 98.1 F 98.0 F 98.5 F Temperature Source Temporal Temporal Temporal Pulse Rate 56 L 57 L 57 L Respiratory Rate 23 H 27 H 26 H Respiratory Effort Respiratory Depth Respiratory Pattern Blood Pressure 130/73 H 138/70 H 129/64 H Blood Pressure Mean 90 89 85 Pulse Ox 95 94 95 Oxygen Delivery Method Nasal Cannula Nasal Cannula Oxygen Flow Rate (L/min) 3 3 Positive well nourished, well developed and obese General Appearance ED: well developed Nutritional Appearance: obese HEENT Reports normocephalic, head/scalp atraumatic and moist mucous membranes Eyes PERRL and EOMs intact bilaterally Neck no lymphadenopathy, supple and no JVD Resp normal respiratory effort and clear to auscultation bilaterally Auscultation: diminished lung sounds bilateral lower Cardio regular rate, regular rhythm and no murmurs GI normal to inspection, nondistended, normoactive bowel sounds and non-tender Palpation: soft Back/Spine no CVA tenderness and normal ROM Extremity General Extremety ED: Yes edema General Extremity: edema bilateral lower extremity Details: moderate Neuro CN's II-XII intact bilaterally Sensorium / Orientation: alert Motor Exam: strength 5/5 throughout Psych mental status grossly normal Mood & Affect: Negative for depressed or tearful Skin no rashes or lesions noted and no wounds MDM MDM MDM Narrative Medical decision making narrative: My independent interpretation of the plain films of the chest x-ray is cardiomegaly with possible pleural effusion and pulmonary edema. White count 4.0 which is chronic for her. She is chronically thrombocytopenic tonight at 86 hemoglobin however 14.1. INR 1.7 PTT 36.8. Lactic acid 1.2 glucose 57. She was given an amp of D50. Lipase 69 CT head showed no acute findings. CTA with no acute pulmonary embolism but pleural effusions bilaterally noted. CT of the abdomen pelvis with no significant ascites but anasarca noted. Please see radiologist read for further details. Patient received Lasix. I reviewed her last echocardiogram which was on 23 January. Patient still requiring oxygen supplementation for hypoxia. I spoke with the hospitalist regarding diuresis possibly albumin therapy. Patient will be admitted in the hospital. History & Record Review Discussion w/independent historian: EMS personnel, Patient and Family Lab Data Attestation: I reviewed the patient's lab results. Labs: Laboratory Results - last 24 hr 01/30/24 01/30/24 21:00 21:33 WBC 4.0 L RBC 4.24 Hgb 14.1 Hct 41.3 MCV 97.4 MCH 33.3 H MCHC 34.1 RDW Std Deviation 53.6 H RDW Coeff of Rick 15.2 H Plt Count 86 L MPV 11.6 Immature Gran % (Auto) 0.500 Neut % (Auto) 55.1 Lymph % (Auto) 23.4 [place] % (Auto) 10.6 H Eos % (Auto) 9.6 H Baso % (Auto) 0.8 Absolute Neuts (auto) 2.2 Absolute Lymphs (auto) 0.93 Nucleated RBC % 0 Differential Comment SCANNED PT 19.6 H INR 1.7 APTT 36.8 H Sodium 137 Potassium 4.6 Chloride 108 H Carbon Dioxide 23.0 Anion Gap 6 BUN 20 H Creatinine 0.79 Estim Creat Clear Calc 122.67 Est GFR (MDRD) Af Amer 106 Est GFR (MDRD) Non-Af 88 BUN/Creatinine Ratio 25.4 H Glucose 57 L Lactic Acid 1.2 Calcium 8.4 L Total Bilirubin 3.20 H Direct Bilirubin 0.79 H AST 45 H ALT 22 Alkaline Phosphatase 116 Ammonia 45.0 H Troponin I High Sens 20 Total Protein 6.3 L Albumin 2.9 L Globulin 3.4 Lipase 69 Radiography Diagnostic Testing: Clinical Impression(s) from Imaging Studies Chest X-Ray 01/30/24 20:40 IMPRESSION: Pulmonary edema. Electronically Signed: Cristi Joseph MD at 21:00 EDT , Abdomen/Pelvis CT 01/30/24 21:38 IMPRESSION: 1. Anasarca with moderate size bilateral pleural effusions and small volume ascites. 2. Chronic portal hypertension with prominent intra-abdominal varices, paraesophageal varices and severe splenomegaly. 3. Cholelithiasis. 4. Other nonurgent findings within body of report. Electronically Signed: Brennen Chester MD at 22:49 EDT , Brain CT 01/30/24 21:38 IMPRESSION: No evidence of acute intracranial abnormality. Bilateral maxillary sinus disease. Electronically Signed: Brennen Chester MD at 22:39 EDT , Chest CTA 01/30/24 21:38 IMPRESSION: 1. No pulmonary embolus identified. 2. Moderate size bilateral pleural effusions with atelectatic changes. 3. Cardiomegaly. 4. Large paraesophageal varices. See separate CT abdomen and pelvis report with findings of portal hypertension. Electronically Signed: Brennen Chester MD at 22:36 EDT , EKG Initial EKG: Attestation: I personally reviewed and interpreted this EKG as follows: Comments: Sinus bradycardia ventricular rate of 58 bpm. Management Discussion w/another healthcare provider: Hospitalist Discharge Plan Dx/Rx/DC Orders Clinical Impression: Thrombocytopenia, Leukopenia, Decompensation of cirrhosis of liver, Anasarca, Headache, Acute hypoxemic respiratory failure, Pleural effusion, Hypoglycemia Disposition Disposition: Acute Care Hospital [facility]
[2024-01-30 22:15] LABS: Lactic Acid 1.2 mmol/L (0.4-1.9)
--- NOTE | 2024-01-30 23:03 | PCM.HP.STD ---
HPI - General General Date of Admission: 01/30/24 Date of Service: 01/30/24 Chief Complaint: Dyspnea, cough, weight gain. HPI Narrative The patient is a 33 y/o F w/ PMHx: Obesity, Chronic leukopenia, Chronic thrombocytopenia, Non-alcoholic cirrhosis, Gaucher disease, GERD w/ Esophageal varices with Hx bleed, Chronic anemia, Developmental disorder/MRDD, 01/25/2020 for discharge following treatment and evaluation for acute urinary tract infection with associated hematuria, hyperammonemia with hepatic encephalopathy w/ associated pulmonary edema/hypoxa who presents to the [facility] ED on 01/30/24 with history of dyspnea recently admitted to the hospital and discharged on cefdinir for possible UTI with 1 dose left however on day of presentation family had noted she was extremely dyspneic with prompting EMS call and patient was noted at that time to be 85% on room air with wheezing with breathing treatments administered with some improvement however she continued to be symptomatic with family reporting recently noted increased lower extremity swelling as well as cough but unclear if productive with no fevers or chills prompting eventual transition to the ED for evaluation. Family also notes recent headaches. Workup in the ED included T98.5, heart rate 58, BP 133/70, respiratory rate 13, initially 87% on room air with improvement to 94% on 3 L nasal cannula, CBC with WBC 4.0, hemoglobin 14.1, MCV 97.4, platelet 86 without marked shift, coags with PT 19.6, INR 1.7, PTT 36.8, CMP with chloride 108, BUN/creatinine 20/0.79, glucose 57, hepatic profile with T. bili 3.20, direct bili 0.79, AST/ALT 45/22, lipase 69, ammonia 45, troponin 20, lactic acid 1.2, chest x-ray with bilateral pleural effusions with pulmonary edema/questionable infiltrates, CT abdomen and pelvis with anasarca with moderate-sized bilateral pleural effusions and small volume ascites, chronic portal hypertension with prominent intra-abdominal varices, paraesophageal varices and severe splenomegaly, cholelithiasis, CT brain with maxillary sinus disease bilaterally otherwise no acute intracranial findings, CTA chest no PE, moderate sized bilateral pleural effusions with atelectatic changes, cardiomegaly, large paraesophageal varices, EKG with sinus bradycardia with no acute evidence of ischemia, ED did bedside abdominal US and did not note any marked fluid. In the ED lasix 60 mg IV x 1 administered. [facility] Medical History Anemia Developmental disorder Esophageal varices with hemorrhage Gaucher disease Hepatomegaly Leukopenia Liver cirrhosis secondary to [place] Non-alcoholic cirrhosis Pancytopenia Portal vein thrombosis Splenomegaly Thrombocytopenia Home Medications Lactobacillus acidophilus 500 million cell capsule 1 ea PO DAILY 01/08/20 [History Last Taken Unknown] michelle (Zingiber officinalis) 500 mg capsule 500 mg PO DAILY 01/08/20 [History Last Taken Unknown] lorazepam 0.5 mg tablet 0.5 mg PO TID #7 tabs 01/08/20 [Rx Last Taken Unknown] multivitamin with minerals 1 ea PO DAILY 01/08/20 [History Last Taken Unknown] sertraline 25 mg tablet 25 mg PO QHS depression 02/12/21 [History Last Taken Unknown] lactulose 10 gram/15 mL oral solution (Constulose) 15 ml PO TID 11/08/22 [History Last Taken Unknown] pantoprazole 40 mg tablet,delayed release 40 mg PO DAILY 11/08/22 [History Last Taken Unknown] propranolol 20 mg tablet 20 mg PO DAILY 11/08/22 [History Last Taken Unknown] blood sugar diagnostic (True Metrix Glucose Test Strip) 01/23/24 [History Last Taken Unknown] blood-glucose meter (True Metrix Air Glucose Meter) 01/23/24 [History Last Taken Unknown] glucose 4 gram chewable tablet 16 g PO PRN PRN diabetes mellitus 01/23/24 [History Last Taken Unknown] lancets 33 gauge (TRUEplus Lancets) 01/23/24 [History Last Taken Unknown] cefdinir 300 mg capsule 300 mg PO BID 5 days #10 caps 01/25/24 [Rx Last Taken Unknown] rifaximin 550 mg tablet (Xifaxan) 550 mg PO BID 30 days #60 tabs 01/25/24 [Rx Last Taken Unknown] Allergy/AdvReac Type Severity Reaction Status Date / Time oseltamivir Allergy Other Verified 01/23/24 18:58 Family History (Updated 01/30/24 @ 23:[address] Zohra Araujo MD) Mother Prediabetes Father No problems noted. Surgical History History of liver biopsy Social History household members: family Smoking Status: Never smoker alcohol intake: never substance use type: does not use ROS Review of Systems ROS Unobtainable: due to mental condition Vital Signs Vital Signs Vital Signs: 01/30/24 19:57 01/30/24 20:05 01/30/24 20:08 Temperature 98.5 F 98.5 F Temperature Source Temporal Temporal Pulse Rate 58 L 57 L Respiratory Rate 13 16 Respiratory Effort Short of Breath Labored Respiratory Depth Shallow Respiratory Pattern Tachypnea Blood Pressure 133/70 H 133/70 H Blood Pressure Mean 91 91 Pulse Ox 87 92 Oxygen Delivery Method Room Air Nasal Cannula Nasal Cannula Oxygen Flow Rate (L/min) 3 2 01/30/24 21:02 01/30/24 21:44 01/30/24 21:45 Temperature 97.5 F L 97.4 F L Temperature Source Temporal Temporal Pulse Rate 61 60 Respiratory Rate 22 H 20 H Respiratory Effort Respiratory Depth Respiratory Pattern Blood Pressure 126/62 H 144/101 H Blood Pressure Mean 83 112 Pulse Ox 94 Oxygen Delivery Method Nasal Cannula Oxygen Flow Rate (L/min) 3 01/30/24 21:59 01/30/24 22:00 Temperature 97.4 F L 98.0 F Temperature Source Temporal Temporal Pulse Rate 60 65 Respiratory Rate 32 H 20 H Respiratory Effort Respiratory Depth Respiratory Pattern Blood Pressure 136/80 H 102/79 Blood Pressure Mean 98 87 Pulse Ox 94 95 Oxygen Delivery Method Oxygen Flow Rate (L/min) Weight Weight: 234 lb 12.677 oz Body Mass Index (BMI) 37.9 Physical Exam Narrative Physical Examination: General: Awake, alert, not able to answer any orientation questions secondary to underlying developmental delay/MRDD, remains cooperative, seated upright in the ED bed in no apparent distress but does have noted tachypnea on supplemental oxygen. Skin: Normal color, normal turgor, no icterus, no cyanosis except occasional staged ecchymoses, abrasion. HEENT: AT/NC, EOMI, PERRLA, mildly dry MM, no carotid bruits, + JVD noted. Lungs: Significantly diminished, greater bases, rales, mildly increased respiratory rate and increased work of breathing but no overt respiratory distress or failure. Heart: Mildly bradycardic with regular rhythm; no gallop, rub audible. Abdomen: Soft, N obese, TTP, distant BS, appears distended, tympanitic, + HSM. Extremities: No cyanosis, no clubbing, significant distal knee downward lower extremity tense edema, increased from previously family notes Neurological: Patient awake, alert, oriented as noted, cognitive function decreased baseline with underlying cognitive delay/MRDD, currently appears per family intact; pupils equally reactive to light and accommodation, cranial nerves grossly normal, moving all 4 extremities, no focal deficits, strength moderately to severely globally decreased. Psychiatric: Affect appears flat, fatigued, no acute evidence of depressive or anxiety feelings but does have underlying history. Results Lab / Micro Data 01/30/24 21:00 01/30/24 21:00 Labs: Laboratory Results - last 24 hr 01/30/24 21:00: WBC 4.0 L, RBC 4.24, Hgb 14.1, Hct 41.3, MCV 97.4, MCH 33.3 H, MCHC 34.1, RDW Std Deviation 53.6 H, RDW Coeff of Rick 15.2 H, Plt Count 86 L, MPV 11.6, Immature Gran % (Auto) 0.500, Neut % (Auto) 55.1, Lymph % (Auto) 23.4, Ransom % (Auto) 10.6 H, Eos % (Auto) 9.6 H, Baso % (Auto) 0.8, Absolute Neuts (auto) 2.2, Absolute Lymphs (auto) 0.93, Nucleated RBC % 0, Differential Comment SCANNED, PT 19.6 H, INR 1.7, APTT 36.8 H, Sodium 137, Potassium 4.6, Chloride 108 H, Carbon Dioxide 23.0, Anion Gap 6, BUN 20 H, Creatinine 0.79, Estim Creat Clear Calc 122.67, Est GFR (MDRD) Af Amer 106, Est GFR (MDRD) Non-Af 88, BUN/Creatinine Ratio 25.4 H, Glucose 57 L, Calcium 8.4 L, Total Bilirubin 3.20 H, Direct Bilirubin 0.79 H, AST 45 H, ALT 22, Alkaline Phosphatase 116, Troponin I High Sens 20, Total Protein 6.3 L, Albumin 2.9 L, Globulin 3.4, Lipase 69 01/30/24 21:33: Lactic Acid 1.2, Ammonia 45.0 H Imaging Radiology Impression Chest X-Ray 01/30/24 20:40 IMPRESSION: Pulmonary edema. Electronically Signed: Cristi Joseph MD at 21:00 EDT , Abdomen/Pelvis CT 01/30/24 21:38 IMPRESSION: 1. Anasarca with moderate size bilateral pleural effusions and small volume ascites. 2. Chronic portal hypertension with prominent intra-abdominal varices, paraesophageal varices and severe splenomegaly. 3. Cholelithiasis. 4. Other nonurgent findings within body of report. Electronically Signed: Brennen Chester MD at 22:49 EDT , Brain CT 01/30/24 21:38 IMPRESSION: No evidence of acute intracranial abnormality. Bilateral maxillary sinus disease. Electronically Signed: Brennen Chester MD at 22:39 EDT , Chest CTA 01/30/24 21:38 IMPRESSION: 1. No pulmonary embolus identified. 2. Moderate size bilateral pleural effusions with atelectatic changes. 3. Cardiomegaly. 4. Large paraesophageal varices. See separate CT abdomen and pelvis report with findings of portal hypertension. Electronically Signed: Brennen Chester MD at 22:36 EDT , Assessment & Plan Assessment/Plan (1) Decompensation of cirrhosis of liver: (2) Pleural effusion: PLAN: Plan The patient is a 33 y/o F w/ PMHx: Obesity, Chronic leukopenia, Chronic thrombocytopenia, Non-alcoholic cirrhosis, Gaucher disease, GERD w/ Esophageal varices with Hx bleed, Chronic anemia, Developmental disorder/MRDD, 01/25/2020 for discharge following treatment and evaluation for acute urinary tract infection with associated hematuria, hyperammonemia with hepatic encephalopathy w/ associated pulmonary edema/hypoxa who presents to the [facility] ED on 01/30/24 with history of dyspnea recently admitted to the hospital and discharged on cefdinir for possible UTI with 1 dose left however on day of presentation family had noted she was extremely dyspneic with prompting EMS call and patient was noted at that time to be 85% on room air with wheezing with breathing treatments administered with some improvement however she continued to be symptomatic with family reporting recently noted increased lower extremity swelling as well as cough but unclear if productive with no fevers or chills prompting eventual transition to the ED for evaluation. #1. Acute Decompensated Non-alcoholic Cirrhosis underlying history of Gaucher's disease with chronic hyperbilirubinemia/elevated LFTs with mild hyperammonemia and coagulopathy w/ chronic HSM w/ Acute hypoxia secondary to pulmonary edema/anasarca/Overload: Admission CMP with T. bili 3.20, D bili 0.79, AST/ALT 45/22, similar to previous, ammonia minimally elevated at 45. Will admit to [facility] telemetry, maintain on low Na/DM diet, water 1500 ml restriction, lasix IV diuresis regimen, continue patient home lactulose, propranolol, Xifaxan and will initiate at least low-dose initiate, will repeat CMP and ammonia level in a.m., patient w/ noted 01/25/2024 weight 223 pounds and now upon representation 234 pounds, case management consulted. Will administer albumin given planned aggressive diuresis but may require additional pending balance. Pending response may need to consider thoracenteses. TSH, FT4, mag pending. Recent presentation 01/24/24 ECHO w/ mild concentric LVH, LVEF 65%, diastolic function indeterminate, severely enlarged LA, moderately enlarged RA, mild MVI, moderate TVI, RVSP 48 mg HH. #2. Hypoglycemia: Possibly contributing to her current presentation, admission glucose 54, will maintain on monitor and closely continue to recheck blood sugars with addition of dextrose IV fluids if necessary. HgbA1c pending. #3. Chronic thrombocytopenia: Admission platelet 86, baseline ranging 40-60 primarily per review, will continue to closely trend CBC especially given presentation. #4. Chronic anemia, normocytic: Admission hemoglobin 14.1, MCV 97.4 however most recent previous baseline noted 01/25/24 hemoglobin 10.6, recent admission with hemoglobin initially on admit 12.5 and then decrease with iron studies demonstrating very mild iron deficiency anemia and both B12 and folic acid is normal with EGD demonstrating esophageal varices and portal hypertensive gastropathy with no acute bleeding, will continue to trend CBC. #5. Chronic leukopenia: Likely in part to her recent infection but chronic component with underlying Gaucher's disease, admission CBC with WBC 4.0, similar to previous, will continue to trend CBC. #6. Developmental disorder/MRDD: Complicates presentation, patient nonverbal at baseline living with her parent, maintain on fall and aspiration precautions, case management consulted. #7. Obesity: Weight loss and lifestyle changes encouraged. #8. Anxiety and depression: We will continue patient on sertraline regimen. #9. GERD with history of GI bleed with known esophageal varices: We will continue patient on PPI. #10. DVT prophylaxis: SCDs. #11. CODE status: Patient HCPOA and LW not in place but patient is Developmental disorder/MRDD living with her parents who make her decisions. Discussed CODE status at length including difference between FULL code, DNR-CCA and DNR-CC status. Following discussions about the differences in these status, requested DNR-CCA, no intubation status. Advanced Care Planning Face to Face Time: 16 minutes. Charges/Coding Visit Charges Inpatient E&M: 96777 Init Hosp L3 Procedures Hospitalists Procedures: 11165 Advncd Care Plan 30 Min
[2024-01-30] MEDS: Furosemide 100 MG/10 ML Vial 60 MG IV (23:25)
[2024-01-30] MEDS: Albumin Human 25% (100 mL) 25 GM/100 ML BAG IV (23:45)
[2024-01-30] MEDS: Dextrose 50%-Water 25 GM/50 ML DISP.SYRIN IV (23:47)
[2024-01-30 23:53] LABS: Magnesium 1.8 mg/dL (1.6-2.6); Phosphorus 4.5 mg/dL (2.5-4.9)
[2024-01-31] VITALS (12 sets, daily range): BP systolic 118–139; BP diastolic 57–80; PULSE 56–64; RESP 18–25; TEMP 36.4–36.8; O2SAT 89–99; BMI 36.7; BMI 36.6
[2024-01-31 01:28] LABS: Bedside Glucose 138 mg/dL (74-106)
[2024-01-31 01:37] LABS: Troponin-I HS 552 pg/mL (3.0-54.0)
--- NOTE | 2024-01-31 02:43 | ECHOL_ITS ---
Reason For Study: NSTEMI Procedure This was a limited 2D transthoracic echocardiogram. Exam performed portable in patient room. Left Ventricle Normal LV size. The estimated ejection fraction is 60 %. Unable to assess diastolic dysfunction. No regional wall motion abnormalities noted. Right Ventricle Normal RV size. Normal systolic function. Atria The left atrium is moderately enlarged. The right atrium is mildly enlarged. Mitral Valve There is no mitral valve stenosis. Trivial mitral valve insufficiency. Tricuspid Valve There is no tricuspid stenosis. Mild tricuspid valve insufficiency. Pulmonary artery systolic pressure is 40 mmHg. Aortic Valve There is no aortic stenosis. No aortic valve insufficiency. Great Vessels Normal aortic root. Pericardium/Pleural Trivial pericardial effusion. MMode/2D Measurements & Calculations LVIDd: 5.7 cm IVSd: 1.5 cm LAV(MOD-sp4): 125.7 ml LVIDs: 3.6 cm LVPWd: 0.97 cm FS: 37.3 % LVAd ap4: 40.8 cm2 SV(MOD-sp4): 101.1 ml SV(sp4-el): 104.6 ml LVLd ap4: 8.6 cm EDV(MOD-sp4): 158.2 ml EDV(sp4-el): 163.8 ml LVAs ap4: 21.5 cm2 LVLs ap4: 6.7 cm ESV(MOD-sp4): 57.2 ml ESV(sp4-el): 59.1 ml EF(MOD-sp4): 63.9 % EF(sp4-el): 63.9 % LA A4 area: 35.5 cm2 RA A4 area: 29.1 cm2 Doppler Measurements & Calculations TR max anum: 287.1 cm/sec TR max P.0 mmHg ECHO/Echo, Limited Study Interpretation Summary The estimated ejection fraction is 60 %. Unable to assess diastolic dysfunction. The left atrium is moderately enlarged. The right atrium is mildly enlarged. Trivial mitral valve insufficiency. Ordering Physician: Zohra Araujo Referring Physician: Mariela Kan M.D. Performed By: Juvenal Guerin RCS
--- NOTE | 2024-01-31 02:45 | PCM.HOSP.N ---
Hospitalist Note Complicated liver history with now noted 2nd troponin increase to 552, appears consistent with possible NSTEMI type II secondary to demand. Will very cautiously place on heparin drip without bolus, request repeat ECHO given this elevation, administer cautiously asa, mag already obtained, will obtain FLP, will request Cardiology evaluation concurrently.
[2024-01-31] MEDS: Aspirin 325 MG Tablet PO (03:10)
[2024-01-31] MEDS: HEPARIN/D5w 25,000 UNITS 25,000 UNITS/250 ML IV.SOLN. 15 UNITS CONT INF (03:14)
[2024-01-31 03:20] LABS: Absolute Neutrophil Count 1.6 X10^3/uL (2.0-7.7); Basophil# 0.01 X10^3/uL; Basophil% 0.5 % (0-1); Eosinophil# 0.04 X10^3/uL; Eosinophils% 1.9 % (0-5); Hematocrit 33.9 % (37-47); Hemoglobin 11.7 g/dL (12.0-15.0); Lymphocyte % 18.6 % (19-41); Mean Corp Hgb Conc 34.5 g/dL (32-36); Mean Corpuscular Hgb 33.2 pg (27.0-32.0); Mean Corpuscular Volume 96.3 fL (81-99); Mean Platelet Vol. 11.7 fl (6.2-12.0); Monocyte# 0.13 X10^3/uL; NRBC Flagged by Analyzer 0 % (0-5); Neutrophil # 1.56 X10^3/uL (2.7-7.7); Neutrophil % 72.5 % (47-70); POSITIVE COUNT YES; POSITIVE DIFFERENTIAL YES; Platelet Count 69 K/mm3 (150-450); RBC Distribution Width CV 14.9 % (11.6-14.6); RBC Distribution Width SD 51.8 fl (35.1-43.9); Red Blood Count 3.52 M/mm3 (4.2-5.4); White Blood Count 2.2 K/mm3 (4.4-11.0)
[2024-01-31 03:28] LABS: Differential Indicated SCAN CRITERIA MET
[2024-01-31 03:52] LABS: Troponin-I HS 811 pg/mL (3.0-54.0)
[2024-01-31 03:58] LABS: AST(SGOT) 34 U/L (15-37); Alanine Aminotransfer ALT/SGPT 21 U/L (13-56); Albumin, Serum 2.9 g/dL (3.2-5.0); Alkaline Phosphatase 90 U/L (45-117); Anion Gap 6 (5-15); BUN 22 mg/dL (7-18); BUN/Creat Ratio 23.7 RATIO (10-20); Calcium,Total 8.3 mg/dL (8.5-10.1); Chloride 109 mmol/L (98-107); Creatinine, Serum 0.93 mg/dL (0.55-1.02); EST Glomerular Filtration Rate 73 mL/min (>60); Est Glom Filt Rate - Afr Amer 88 mL/min (>60); Estimated Creatinine Clearance 102.34 ml/min; Globulin 2.8 g/dL (2.2-4.2); Glucose 115 mg/dL (74-106); Potassium 4.6 mmol/L (3.5-5.1); Protein, Total 5.7 g/dL (6.4-8.2); Sodium Level 138 mmol/L (136-145); T4 Free Direct 1.65 ng/dL (0.76-1.46); Thyroid Stim Hormone (TSH) 2.72 uIU/mL (0.358-3.74)
[2024-01-31 04:49] LABS: Bedside Glucose 109 mg/dL (74-106)
[2024-01-31 05:19] LABS: Cholesterol 55 mg/dL (200); High Density Lipoprotein 32 mg/dL; Triglycerides 53 mg/dL; Very Low Density Lipoprotein 11 mg/dL (5-40)
[2024-01-31] MEDS: Lactulose 20 GM/30 ML UDC 10 GM PO ×3 (05:39→21:15)
[2024-01-31 06:41] LABS: Differential Comment SCANNED
[2024-01-31] MEDS: 0.9% Saline Lock 10 ML Syringe IV ×3 (07:46→18:11)
[2024-01-31 07:57] LABS: Hemoglobin A1c 4.2 % (3.8-5.6)
--- NOTE | 2024-01-31 08:09 | PCM.CONS.C ---
Assessment & Plan Assessment/Plan (1) Acute hypoxemic respiratory failure: PLAN: The patient's respiratory failure is recovering. She is now on 3 L nasal cannula and breathing easily. I am uncertain of the etiology of her decompensation is probably multifactorial related to her anasarca and general issues with her hepatic failure. (2) Decompensation of cirrhosis of liver: PLAN: The patient's pro time is 19 with an INR of 1.7. She has documented esophageal and abdominal varices. I do not feel that she should be anticoagulated for her elevated troponins. I feel the risk outweighs the benefit to be gained in this given situation. (3) Elevated troponin: PLAN: The patient's troponins did go up to 811. However EKG shows sinus bradycardia and is unremarkable with no evidence of ischemia at the time of her admission when she was hypoxic. The patient's telemetry shows no significant ectopy she remains in sinus rhythm at 58 to 60 bpm. Although not reliable she specifically denies any chest symptoms. Given the patient's esophageal varices and other bleeding risk including her thrombocytopenia her INR of 1.7 and lack of any EKG changes I would recommend that we treat this conservatively. Anticoagulation should be discontinued. We will check an echo to evaluate her LV function to help direct guideline directed medical therapy. This was discussed in detail with the patient's mother who was in the room throughout the interview and examination. PLAN: Plan 1. DC heparin. 2. Echocardiogram as previously ordered. HPI Consult Data Date of Consult: 01/31/24 HPI Narrative HPI Narrative: TARAS LAWRENCE, is a 33 F who presents as a MRDD young lady. Her mother is in the room with her. History was obtained from the mother. The patient presented with progressive respiratory insufficiency and failure. She was treated in the emergency department placed on oxygen and has markedly improved by the mother's report. The patient's initial troponin was 20 it went up to 550 and then up to 811. However, her EKG shows sinus bradycardia 58 bpm and is otherwise unremarkable. Her telemetry continues to show bradycardia at 58 bpm with no significant ectopy. The patient has complained of headaches but she specifically denies any anginal type symptoms. She does report some shortness of breath but the mother reports that this is markedly improved. The patient answers inconsistently to questions she will answer no for series of questions and then answer yes and the mother says this is normal for her and not valid answers. The patient was started on heparin drip last evening. Her INR is 1.7 related to her hepatic failure. She has a history of GI bleeds and leukopenia and thrombocytopenia. She also history of portal vein hypertension with esophageal and abdominal varices. 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 Pancytopenia Portal vein thrombosis Splenomegaly Thrombocytopenia Home Medications Lactobacillus acidophilus 500 million cell capsule 1 ea PO DAILY antirejection 01/08/20 [History Last Taken Unknown] michelle (Zingiber officinalis) 500 mg capsule 500 mg PO BID supplement 01/08/20 [History Last Taken Unknown] lorazepam 0.5 mg tablet 0.5 mg PO TID #7 tabs 01/08/20 [Rx Last Taken Unknown] multivitamin with minerals 1 ea PO DAILY supplement 01/08/20 [History Last Taken Unknown] sertraline 25 mg tablet 25 mg PO QHS depression 02/12/21 [History Last Taken Unknown] lactulose 10 gram/15 mL oral solution (Constulose) 15 ml PO TID liver cirrhosis 11/08/22 [History Last Taken Unknown] pantoprazole 40 mg tablet,delayed release 40 mg PO DAILY gi 11/08/22 [History Last Taken Unknown] propranolol 20 mg tablet 20 mg PO DAILY esophageal varices 11/08/22 [History Last Taken Unknown] blood sugar diagnostic (True Metrix Glucose Test Strip) 01/23/24 [History Last Taken Unknown] blood-glucose meter (True Metrix Air Glucose Meter) 01/23/24 [History Last Taken Unknown] glucose 4 gram chewable tablet 16 g PO PRN PRN diabetes mellitus 01/23/24 [History Last Taken Unknown] lancets 33 gauge (TRUEplus Lancets) 01/23/24 [History Last Taken Unknown] cefdinir 300 mg capsule 300 mg PO BID 5 days #10 caps 01/25/24 [Rx Last Taken 01/30/24] rifaximin 550 mg tablet (Xifaxan) 550 mg PO BID 30 days #60 tabs 01/25/24 [Rx Last Taken Unknown] Allergy/AdvReac Type Severity Reaction Status Date / Time oseltamivir Allergy Other Verified 01/23/24 18:58 Family History Mother Prediabetes Father No problems noted. Surgical History History of liver biopsy Social History household members: family Smoking Status: Never smoker alcohol intake: never substance use type: does not use ROS Review of Systems ROS Unobtainable: due to mental condition Physical Exam Const Constitutional Narrative: Patient is awake and appears to be oriented only to person. HEENT head/scalp atraumatic Eyes EOMs intact bilaterally Neck no JVD Chest inspection of chest normal Resp normal respiratory effort Auscultation: diminished lung sounds bilateral lower Cardio regular rate, regular rhythm, S1 normal heart sound, S2 normal heart sound, no murmurs, no rub and no gallops GI non-tender GI Narrative: Distended Extremity General Extremity: edema bilateral upper extremity trace and lower extremity Details: trace Skin no rashes or lesions noted Neuro Neuro Narrative: Patient is oriented only to person but she does seem to respond but just inappropriate answers. Psych Attention / Concentration: attention grossly impaired Risk Stratification Risk Stratification Applicable: Yes Age >/= 65: No >/= 3 CAD Risk Factors (HTN, HLD, DM, family hx of CAD, or current smoker): No Aspirin Use in the Past 7 Days: No Severe Angina (>/= episodes in 24 hours): No EKG ST Changes >/= 0.5mm: No Positive Cardiac Marker: Yes MORELIA Risk Stratification Score: 1 MORELIA % Risk: 5% Risk Charges/Coding Visit Charges Inpatient E&M: 61415 Init Hosp L3 Objective Data Vital Signs: Vital Signs Temp Pulse Resp BP Pulse Ox O2 Del Method O2 Flow Rate 97.6 F L 62 23 H 118/65 94 Nasal Cannula 3 01/31/24 03:20 01/31/24 03:20 01/31/24 03:20 01/31/24 03:20 01/31/24 03:20 01/31/24 03:20 01/31/24 03:20 Oxygen Flow Rate (L/min) 3 Oxygen Delivery Method Nasal Cannula Weight: 227 lb 1.218 oz Body Mass Index (BMI) 36.6 Intake & Output: Intake and Output for Last 24 Hours 01/29/24 01/30/24 01/31/24 23:59 23:59 23:59 Intake Total 168 / 168 Balance 168 / 168 Lab / Micro Data Attestation: I reviewed the patient's lab results. 01/31/24 03:00 01/31/24 03:00 Labs: Laboratory Results - last 24 hr 01/30/24 21:00: WBC 4.0 L, RBC 4.24, Hgb 14.1, Hct 41.3, MCV 97.4, MCH 33.3 H, MCHC 34.1, RDW Std Deviation 53.6 H, RDW Coeff of Rick 15.2 H, Plt Count 86 L, MPV 11.6, Immature Gran % (Auto) 0.500, Neut % (Auto) 55.1, Lymph % (Auto) 23.4, [place] % (Auto) 10.6 H, Eos % (Auto) 9.6 H, Baso % (Auto) 0.8, Absolute Neuts (auto) 2.2, Absolute Lymphs (auto) 0.93, Nucleated RBC % 0, Differential Comment SCANNED, PT 19.6 H, INR 1.7, APTT 36.8 H, Sodium 137, Potassium 4.6, Chloride 108 H, Carbon Dioxide 23.0, Anion Gap 6, BUN 20 H, Creatinine 0.79, Estim Creat Clear Calc 122.67, Est GFR (MDRD) Af Amer 106, Est GFR (MDRD) Non-Af 88, BUN/Creatinine Ratio 25.4 H, Glucose 57 L, Calcium 8.4 L, Phosphorus 4.5, Magnesium 1.8, Total Bilirubin 3.20 H, Direct Bilirubin 0.79 H, AST 45 H, ALT 22, Alkaline Phosphatase 116, Troponin I High Sens 20, Total Protein 6.3 L, Albumin 2.9 L, Globulin 3.4, Lipase 69 01/30/24 21:33: Lactic Acid 1.2, Ammonia 45.0 H 01/30/24 23:44: Troponin I High Sens 552 H* 01/31/24 00:47: POC Glucose 138 H 01/31/24 03:00: WBC 2.2 L, RBC 3.52 L, Hgb 11.7 L, Hct 33.9 L, MCV 96.3, MCH 33.2 H, MCHC 34.5, RDW Std Deviation 51.8 H, RDW Coeff of Rick 14.9 H, Plt Count 69 L, MPV 11.7, Immature Gran % (Auto) 0.500, Neut % (Auto) 72.5 H, Lymph % (Auto) 18.6 L, [place] % (Auto) 6.0, Eos % (Auto) 1.9, Baso % (Auto) 0.5, Absolute Neuts (auto) 1.6 L, Absolute Lymphs (auto) 0.40 L, Nucleated RBC % 0, Differential Comment SCANNED, Diff Path Review February, Sodium 138, Potassium 4.6, Chloride 109 H, Carbon Dioxide 23.0, Anion Gap 6, BUN 22 H, Creatinine 0.93, Estim Creat Clear Calc 102.34, Est GFR (MDRD) Af Amer 88, Est GFR (MDRD) Non-Af 73, BUN/Creatinine Ratio 23.7 H, Glucose 115 H, Hemoglobin A1c 4.2, Calcium 8.3 L, Total Bilirubin 4.60 H, AST 34, ALT 21, Alkaline Phosphatase 90, Ammonia 28.0, Troponin I High Sens 811 H*, Total Protein 5.7 L, Albumin 2.9 L, Globulin 2.8, Albumin/Globulin Ratio 1.0, Triglycerides 53, Cholesterol 55, LDL Cholesterol 12, VLDL Cholesterol 11, HDL Cholesterol 32 L, TSH 2.72, Free T4 1.65 H 01/31/24 04:28: POC Glucose 109 H Micro: Microbiology 01/30/24 21:05 Mucosa - Nasopharyngeal SARS-CoV-2, Influenza & RSV (PCR) - Final Rhythm Strip Rhythm Strip: Sinus bradycardia Rate: 58 Ectopy: None Cardiology Labs/Tests 01/30/24 21:00: WBC 4.0 L, RBC 4.24, Hgb 14.1, Hct 41.3, MCV 97.4, MCH 33.3 H, MCHC 34.1, Plt Count 86 L, MPV 11.6, Immature Gran % (Auto) 0.500, Neut % (Auto) 55.1, Lymph % (Auto) 23.4, [place] % (Auto) 10.6 H, Eos % (Auto) 9.6 H, Baso % (Auto) 0.8, Absolute Neuts (auto) 2.2, Nucleated RBC % 0, PT 19.6 H, INR 1.7, APTT 36.8 H, Sodium 137, Potassium 4.6, Chloride 108 H, Carbon Dioxide 23.0, Anion Gap 6, BUN 20 H, Creatinine 0.79, Est GFR (MDRD) Af Amer 106, Est GFR (MDRD) Non-Af 88, BUN/Creatinine Ratio 25.4 H, Glucose 57 L, Calcium 8.4 L, Phosphorus 4.5, Magnesium 1.8, Total Bilirubin 3.20 H, Direct Bilirubin 0.79 H 01/30/24 21:33: Lactic Acid 1.2 01/31/24 03:00: WBC 2.2 L, RBC 3.52 L, Hgb 11.7 L, Hct 33.9 L, MCV 96.3, MCH 33.2 H, MCHC 34.5, Plt Count 69 L, MPV 11.7, Immature Gran % (Auto) 0.500, Neut % (Auto) 72.5 H, Lymph % (Auto) 18.6 L, [place] % (Auto) 6.0, Eos % (Auto) 1.9, Baso % (Auto) 0.5, Absolute Neuts (auto) 1.6 L, Nucleated RBC % 0, Sodium 138, Potassium 4.6, Chloride 109 H, Carbon Dioxide 23.0, Anion Gap 6, BUN 22 H, Creatinine 0.93, Est GFR (MDRD) Af Amer 88, Est GFR (MDRD) Non-Af 73, BUN/Creatinine Ratio 23.7 H, Glucose 115 H, Hemoglobin A1c 4.2, Calcium 8.3 L, Total Bilirubin 4.60 H, Triglycerides 53, Cholesterol 55, LDL Cholesterol 12, VLDL Cholesterol 11, HDL Cholesterol 32 L Rhythm: EKG: ECHO: Stress Test: Cardiac Cath: PCI: CT Surgery: Holter monitor: EPS: PPM: CXR: Chest CT Scan: Radiography Diagnostic Testing: Radiology Impression Chest X-Ray 01/30/24 20:40 IMPRESSION: Pulmonary edema. Electronically Signed: Cristi Joseph MD at 21:00 EDT , Abdomen/Pelvis CT 01/30/24 21:38 IMPRESSION: 1. Anasarca with moderate size bilateral pleural effusions and small volume ascites. 2. Chronic portal hypertension with prominent intra-abdominal varices, paraesophageal varices and severe splenomegaly. 3. Cholelithiasis. 4. Other nonurgent findings within body of report. Electronically Signed: Brennen Chester MD at 22:49 EDT , Brain CT 01/30/24 21:38 IMPRESSION: No evidence of acute intracranial abnormality. Bilateral maxillary sinus disease. Electronically Signed: Brennen Chester MD at 22:39 EDT , Chest CTA 01/30/24 21:38 IMPRESSION: 1. No pulmonary embolus identified. 2. Moderate size bilateral pleural effusions with atelectatic changes. 3. Cardiomegaly. 4. Large paraesophageal varices. See separate CT abdomen and pelvis report with findings of portal hypertension. Electronically Signed: Brennen Chester MD at 22:36 EDT ,
--- NOTE | 2024-01-31 08:43 | CASEMGMT ---
Addendum entered and electronically signed by Tina Paul RN 01/31/24 15:42: Per Pricilla, Pt's parents are her guardians. INDIRA Hannah Original Note: INDIRA CM: Call received from Pricilla Stanley from [facility]. Pt is an active client with this Board. Per Pricilla, Pt and pt's family were set up to speak with hospice on February 13. The family has expressed a desire for pt to not receive any extraordinary measures. Pricilla requests the hospice referral be expedited during this admission if appropriate. Chantel Paul RN AC
[2024-01-31] MEDS: Aspirin 81 MG TAB.CHEW PO (08:52)
[2024-01-31] MEDS: Pantoprazole Sodium 40 MG Tablet PO (08:53)
[2024-01-31] MEDS: rifAXIMin 550 MG Tablet PO ×2 (08:53→21:15)
[2024-01-31] MEDS: Spironolactone 25 MG Tablet 12.5 MG PO (08:54)
[2024-01-31] MEDS: Furosemide 40 MG/4 ML Vial IV ×2 (08:55→18:11)
[2024-01-31 11:22] LABS: Bedside Glucose 108 mg/dL (74-106)
[2024-01-31] MEDS: Propranolol 10 MG Tablet 20 MG PO ×2 (14:23→21:36)
--- NOTE | 2024-01-31 15:42 | CASEMGMT ---
Advance Directive Validation: Per nsg documentation, pt does not have either document. Chantel Paul RN ACM
--- NOTE | 2024-01-31 15:53 | CHAPLAIN ---
Type of Pastoral Visit _x__ Initial Visit ___ Follow-up Visit ___ On-call Visit ___ General Patient Visit ___ Spiritual Assessment ___ Family Conference ___ Bereavement ___ Rapid Response ___ Code Blue ___ Other (describe below) Pastoral Care Referral From _x__ Patient _x_ Family ___ Nurse ___ Physician ___ Carpenters ___ Network Operations Lead ___ Other (describe below) Sacrament/Intervention _x__ Active listening ___ Anointing ___ Restorationist ___ Bereavement ___ Communion ___ Daniela exploration ___ ___ Life review _x__ Prayer ___ Reconciliation ___ Sacrament of Sick ___ Supportive presence ___ Wedding ___ Other (describe below) Pastoral Comments this patient was admitted just recently and is back again; pt is limited in understanding and speech but answers simple questions and agrees with many statements made; parents are in the room and agreeable for support and prayer; no other needs indicated by pt or family
--- NOTE | 2024-01-31 16:28 | PCM.PN.CARD ---
Subjective Subjective The 2D echocardiogram shows normal LV with no wall motion abnormalities and ejection fraction of 60%. There is moderate left atrial enlargement mild right atrial enlargement mild mitral stenosis and trace mitral regurgitation. Mild tricuspid regurgitation with a pulmonary artery pressure of 40 and a trivial pericardial effusion. The patient continues to deny any chest symptoms. With normal wall motion I do not feel that any further cardiac evaluation is indicated at this point in time. Objective Data Vital Signs: Vital Signs Temp Pulse Resp BP Pulse Ox O2 Del Method O2 Flow Rate 97.7 F L 61 18 139/79 H 93 Nasal Cannula 2 01/31/24 14:17 01/31/24 14:17 01/31/24 14:17 01/31/24 14:17 01/31/24 14:17 01/31/24 14:17 01/31/24 14:17 Oxygen Flow Rate (L/min) 2 Oxygen Delivery Method Nasal Cannula Weight: 227 lb 1.218 oz Body Mass Index (BMI) 36.6 Intake & Output: Intake and Output for Last 24 Hours 01/29/24 01/30/24 01/31/24 23:59 23:59 23:59 Intake Total 168 / 168 Balance 168 / 168 Lab / Micro Data 01/31/24 03:00 01/31/24 03:00 Labs: Laboratory Results - last 24 hr 01/30/24 21:00: WBC 4.0 L, RBC 4.24, Hgb 14.1, Hct 41.3, MCV 97.4, MCH 33.3 H, MCHC 34.1, RDW Std Deviation 53.6 H, RDW Coeff of Rick 15.2 H, Plt Count 86 L, MPV 11.6, Immature Gran % (Auto) 0.500, Neut % (Auto) 55.1, Lymph % (Auto) 23.4, [place] % (Auto) 10.6 H, Eos % (Auto) 9.6 H, Baso % (Auto) 0.8, Absolute Neuts (auto) 2.2, Absolute Lymphs (auto) 0.93, Nucleated RBC % 0, Differential Comment SCANNED, PT 19.6 H, INR 1.7, APTT 36.8 H, Sodium 137, Potassium 4.6, Chloride 108 H, Carbon Dioxide 23.0, Anion Gap 6, BUN 20 H, Creatinine 0.79, Estim Creat Clear Calc 122.67, Est GFR (MDRD) Af Amer 106, Est GFR (MDRD) Non-Af 88, BUN/Creatinine Ratio 25.4 H, Glucose 57 L, Calcium 8.4 L, Phosphorus 4.5, Magnesium 1.8, Total Bilirubin 3.20 H, Direct Bilirubin 0.79 H, AST 45 H, ALT 22, Alkaline Phosphatase 116, Troponin I High Sens 20, Total Protein 6.3 L, Albumin 2.9 L, Globulin 3.4, Lipase 69 01/30/24 21:33: Lactic Acid 1.2, Ammonia 45.0 H 01/30/24 23:44: Troponin I High Sens 552 H* 01/31/24 00:47: POC Glucose 138 H 01/31/24 03:00: WBC 2.2 L, RBC 3.52 L, Hgb 11.7 L, Hct 33.9 L, MCV 96.3, MCH 33.2 H, MCHC 34.5, RDW Std Deviation 51.8 H, RDW Coeff of Rcik 14.9 H, Plt Count 69 L, MPV 11.7, Immature Gran % (Auto) 0.500, Neut % (Auto) 72.5 H, Lymph % (Auto) 18.6 L, [place] % (Auto) 6.0, Eos % (Auto) 1.9, Baso % (Auto) 0.5, Absolute Neuts (auto) 1.6 L, Absolute Lymphs (auto) 0.40 L, Nucleated RBC % 0, Differential Comment SCANNED, Diff Path Review February, Sodium 138, Potassium 4.6, Chloride 109 H, Carbon Dioxide 23.0, Anion Gap 6, BUN 22 H, Creatinine 0.93, Estim Creat Clear Calc 102.34, Est GFR (MDRD) Af Amer 88, Est GFR (MDRD) Non-Af 73, BUN/Creatinine Ratio 23.7 H, Glucose 115 H, Hemoglobin A1c 4.2, Calcium 8.3 L, Total Bilirubin 4.60 H, AST 34, ALT 21, Alkaline Phosphatase 90, Ammonia 28.0, Troponin I High Sens 811 H*, Total Protein 5.7 L, Albumin 2.9 L, Globulin 2.8, Albumin/Globulin Ratio 1.0, Triglycerides 53, Cholesterol 55, LDL Cholesterol 12, VLDL Cholesterol 11, HDL Cholesterol 32 L, TSH 2.72, Free T4 1.65 H 01/31/24 04:28: POC Glucose 109 H 01/31/24 10:56: POC Glucose 108 H Micro: Microbiology 01/30/24 21:05 Mucosa - Nasopharyngeal SARS-CoV-2, Influenza & RSV (PCR) - Final Rhythm Strip Rhythm Strip: Sinus bradycardia Rate: 58 Ectopy: None Cardiology Labs/Tests 01/30/24 21:00: WBC 4.0 L, RBC 4.24, Hgb 14.1, Hct 41.3, MCV 97.4, MCH 33.3 H, MCHC 34.1, Plt Count 86 L, MPV 11.6, Immature Gran % (Auto) 0.500, Neut % (Auto) 55.1, Lymph % (Auto) 23.4, [place] % (Auto) 10.6 H, Eos % (Auto) 9.6 H, Baso % (Auto) 0.8, Absolute Neuts (auto) 2.2, Nucleated RBC % 0, PT 19.6 H, INR 1.7, APTT 36.8 H, Sodium 137, Potassium 4.6, Chloride 108 H, Carbon Dioxide 23.0, Anion Gap 6, BUN 20 H, Creatinine 0.79, Est GFR (MDRD) Af Amer 106, Est GFR (MDRD) Non-Af 88, BUN/Creatinine Ratio 25.4 H, Glucose 57 L, Calcium 8.4 L, Phosphorus 4.5, Magnesium 1.8, Total Bilirubin 3.20 H, Direct Bilirubin 0.79 H 01/30/24 21:33: Lactic Acid 1.2 01/31/24 03:00: WBC 2.2 L, RBC 3.52 L, Hgb 11.7 L, Hct 33.9 L, MCV 96.3, MCH 33.2 H, MCHC 34.5, Plt Count 69 L, MPV 11.7, Immature Gran % (Auto) 0.500, Neut % (Auto) 72.5 H, Lymph % (Auto) 18.6 L, [place] % (Auto) 6.0, Eos % (Auto) 1.9, Baso % (Auto) 0.5, Absolute Neuts (auto) 1.6 L, Nucleated RBC % 0, Sodium 138, Potassium 4.6, Chloride 109 H, Carbon Dioxide 23.0, Anion Gap 6, BUN 22 H, Creatinine 0.93, Est GFR (MDRD) Af Amer 88, Est GFR (MDRD) Non-Af 73, BUN/Creatinine Ratio 23.7 H, Glucose 115 H, Hemoglobin A1c 4.2, Calcium 8.3 L, Total Bilirubin 4.60 H, Triglycerides 53, Cholesterol 55, LDL Cholesterol 12, VLDL Cholesterol 11, HDL Cholesterol 32 L Rhythm: EKG: ECHO: Stress Test: Cardiac Cath: PCI: CT Surgery: Holter monitor: EPS: PPM: CXR: Chest CT Scan: Radiography Diagnostic Testing: Radiology Impression Chest X-Ray 01/30/24 20:40 IMPRESSION: Pulmonary edema. Electronically Signed: Cristi Joseph MD at 21:00 EDT , Abdomen/Pelvis CT 01/30/24 21:38 IMPRESSION: 1. Anasarca with moderate size bilateral pleural effusions and small volume ascites. 2. Chronic portal hypertension with prominent intra-abdominal varices, paraesophageal varices and severe splenomegaly. 3. Cholelithiasis. 4. Other nonurgent findings within body of report. Electronically Signed: Brennen Chester MD at 22:49 EDT , Brain CT 01/30/24 21:38 IMPRESSION: No evidence of acute intracranial abnormality. Bilateral maxillary sinus disease. Electronically Signed: Brennen Chester MD at 22:39 EDT , Chest CTA 01/30/24 21:38 IMPRESSION: 1. No pulmonary embolus identified. 2. Moderate size bilateral pleural effusions with atelectatic changes. 3. Cardiomegaly. 4. Large paraesophageal varices. See separate CT abdomen and pelvis report with findings of portal hypertension. Electronically Signed: Brennen Chester MD at 22:36 EDT , Echocardiogram 01/31/24 02:43 Interpretation Summary The estimated ejection fraction is 60 %. Unable to assess diastolic dysfunction. The left atrium is moderately enlarged. The right atrium is mildly enlarged. Trivial mitral valve insufficiency. Ordering Physician: Zohra Araujo Referring Physician: Mariela Kan M.D. Performed By: Juvenal Guerin RCS Assessment & Plan Assessment/Plan (1) Elevated troponin: PLAN: The elevated troponins are consistent with demand ischemia. Her LV function is normal with no wall motion abnormalities. No further cardiovascular evaluation is indicated at this point in time. We will sign off. PLAN: Plan Cardiology has signed off. Please call if further assistance is needed.
--- NOTE | 2024-01-31 18:40 | PCM.PN.HOSP ---
Reason for Visit Reason for Visit: Diagnoses Pleural effusion, not elsewhere classified (01/30/24) Acute respiratory failure with hypoxia (01/30/24) Hepatic failure, unspecified without coma (01/30/24) Unspecified cirrhosis of liver (01/30/24) Other specified abnormal findings of blood chemistry (01/30/24) Subjective Subjective Patient was seen and examined today, I talked with her mother who was in the room at the time my examination. Patient was seen by cardiology today and a limited echocardiogram was obtained-the patient's EF was 60%. Patient's mother requested that hospice see the patient in consultation. Patient remains on 2 L of oxygen via nasal cannula at this time Objective Data Objective Data Vital Signs: Vital Signs Temp Pulse Resp BP Pulse Ox O2 Del Method O2 Flow Rate 97.7 F L 62 18 124/72 H 93 Nasal Cannula 2 01/31/24 14:17 01/31/24 18:15 01/31/24 14:17 01/31/24 18:15 01/31/24 14:17 01/31/24 17:15 01/31/24 17:15 Oxygen Flow Rate (L/min) 2 Oxygen Delivery Method Nasal Cannula Weight: 103 kg Body Mass Index (BMI) 36.6 Intake & Output: Intake and Output for Last 24 Hours 01/29/24 01/30/24 01/31/24 23:59 23:59 23:59 Intake Total 168 / 168 Balance 168 / 168 Lab / Micro Data 01/31/24 03:00 01/31/24 03:00 Labs: Laboratory Results - last 24 hr 01/30/24 21:00: WBC 4.0 L, RBC 4.24, Hgb 14.1, Hct 41.3, MCV 97.4, MCH 33.3 H, MCHC 34.1, RDW Std Deviation 53.6 H, RDW Coeff of Rick 15.2 H, Plt Count 86 L, MPV 11.6, Immature Gran % (Auto) 0.500, Neut % (Auto) 55.1, Lymph % (Auto) 23.4, [place] % (Auto) 10.6 H, Eos % (Auto) 9.6 H, Baso % (Auto) 0.8, Absolute Neuts (auto) 2.2, Absolute Lymphs (auto) 0.93, Nucleated RBC % 0, Differential Comment SCANNED, PT 19.6 H, INR 1.7, APTT 36.8 H, Sodium 137, Potassium 4.6, Chloride 108 H, Carbon Dioxide 23.0, Anion Gap 6, BUN 20 H, Creatinine 0.79, Estim Creat Clear Calc 122.67, Est GFR (MDRD) Af Amer 106, Est GFR (MDRD) Non-Af 88, BUN/Creatinine Ratio 25.4 H, Glucose 57 L, Calcium 8.4 L, Phosphorus 4.5, Magnesium 1.8, Total Bilirubin 3.20 H, Direct Bilirubin 0.79 H, AST 45 H, ALT 22, Alkaline Phosphatase 116, Troponin I High Sens 20, Total Protein 6.3 L, Albumin 2.9 L, Globulin 3.4, Lipase 69 01/30/24 21:33: Lactic Acid 1.2, Ammonia 45.0 H 01/30/24 23:44: Troponin I High Sens 552 H* 01/31/24 00:47: POC Glucose 138 H 01/31/24 03:00: WBC 2.2 L, RBC 3.52 L, Hgb 11.7 L, Hct 33.9 L, MCV 96.3, MCH 33.2 H, MCHC 34.5, RDW Std Deviation 51.8 H, RDW Coeff of Rick 14.9 H, Plt Count 69 L, MPV 11.7, Immature Gran % (Auto) 0.500, Neut % (Auto) 72.5 H, Lymph % (Auto) 18.6 L, [place] % (Auto) 6.0, Eos % (Auto) 1.9, Baso % (Auto) 0.5, Absolute Neuts (auto) 1.6 L, Absolute Lymphs (auto) 0.40 L, Nucleated RBC % 0, Differential Comment SCANNED, Diff Path Review February foll, Sodium 138, Potassium 4.6, Chloride 109 H, Carbon Dioxide 23.0, Anion Gap 6, BUN 22 H, Creatinine 0.93, Estim Creat Clear Calc 102.34, Est GFR (MDRD) Af Amer 88, Est GFR (MDRD) Non-Af 73, BUN/Creatinine Ratio 23.7 H, Glucose 115 H, Hemoglobin A1c 4.2, Calcium 8.3 L, Total Bilirubin 4.60 H, AST 34, ALT 21, Alkaline Phosphatase 90, Ammonia 28.0, Troponin I High Sens 811 H*, Total Protein 5.7 L, Albumin 2.9 L, Globulin 2.8, Albumin/Globulin Ratio 1.0, Triglycerides 53, Cholesterol 55, LDL Cholesterol 12, VLDL Cholesterol 11, HDL Cholesterol 32 L, TSH 2.72, Free T4 1.65 H 01/31/24 04:28: POC Glucose 109 H 01/31/24 10:56: POC Glucose 108 H Micro: Microbiology 01/30/24 21:05 Mucosa - Nasopharyngeal SARS-CoV-2, Influenza & RSV (PCR) - Final Radiography Diagnostic Testing: Radiology Impression Chest X-Ray 01/30/24 20:40 IMPRESSION: Pulmonary edema. Electronically Signed: Cristi Joseph MD at 21:00 EDT , Abdomen/Pelvis CT 01/30/24 21:38 IMPRESSION: 1. Anasarca with moderate size bilateral pleural effusions and small volume ascites. 2. Chronic portal hypertension with prominent intra-abdominal varices, paraesophageal varices and severe splenomegaly. 3. Cholelithiasis. 4. Other nonurgent findings within body of report. Electronically Signed: Brennen Chester MD at 22:49 EDT , Brain CT 01/30/24 21:38 IMPRESSION: No evidence of acute intracranial abnormality. Bilateral maxillary sinus disease. Electronically Signed: Brennen Chester MD at 22:39 EDT , Chest CTA 01/30/24 21:38 IMPRESSION: 1. No pulmonary embolus identified. 2. Moderate size bilateral pleural effusions with atelectatic changes. 3. Cardiomegaly. 4. Large paraesophageal varices. See separate CT abdomen and pelvis report with findings of portal hypertension. Electronically Signed: Brennen Chester MD at 22:36 EDT , Echocardiogram 01/31/24 02:43 Interpretation Summary The estimated ejection fraction is 60 %. Unable to assess diastolic dysfunction. The left atrium is moderately enlarged. The right atrium is mildly enlarged. Trivial mitral valve insufficiency. Ordering Physician: Zohra Araujo Referring Physician: Mariela Kan M.D. Performed By: Juvenal Guerin RCS Rhythm Strip Rhythm Strip: Sinus bradycardia Rate: 58 Ectopy: None Physical Exam Const alert and no apparent distress Constitutional Narrative: Patient has signs of cognitive impairment, she does follow simple commands appropriately General Appearance: cooperative, well kempt and well developed Orientation / Consciousness: awake HEENT normocephalic, head/scalp atraumatic and moist oral mucous membranes Eyes PERRL, EOMs intact bilaterally and conjunctivae normal Neck supple, no JVD, thyroid normal and no carotid bruits General: trachea midline Resp normal respiratory effort, no retractions and no use of accessory muscles Resp Narrative: Breath sounds are diminished at both lung bases Auscultation: Negative for rales, rhonchi or wheezes Cardio regular rate, regular rhythm, S1 normal heart sound, S2 normal heart sound, no murmurs, no rub and no gallops GI normal to inspection, nondistended, normoactive bowel sounds, soft to palpation, non-tender and non-distended Extremity no clubbing, cyanosis or edema Skin no rashes or lesions noted General Skin Exam: no breakdown Neuro CN's II-XII intact bilaterally, no focal motor deficits and no sensory deficits noted Neuro Narrative: Patient has signs of cognitive impairment Sensorium / Orientation: awake and alert Psych Psych Narrative: Patient has signs of cognitive impairment Assessment & Plan Assessment/Plan (1) Pleural effusion: PLAN: Plan 1. Hypoxia secondary to decompensated cirrhosis with anasarca-continue IV diuresis, again family requested hospice consultation, mother states that she is planning on taking the patient home however at the conclusion of her hospitalization. #2 [id number] II [place]-cardiology has elected to treat the patient medically which I think is appropriate #3 chronic cirrhosis of the liver-complicates care, management, recovery, and prognosis #4 ascites secondary to #3-complicates care, management, recovery, and prognosis #5 MRDD-complicates care, management, recovery, and prognosis Total clinical time spent by myself addressing the patient's medical issues, reviewing all of her data, and collaborating with patient's care team: 35 minutes Charges/Coding Visit Charges Inpatient E&M: 45634 Subs Hosp L2
[2024-01-31] MEDS: Sertraline 50 MG Tablet 25 MG PO (21:15)
[2024-01-31] MEDS: Menthol/Lanolin/Calamine/Znox 113 GM Tube 1 APPLIC TOPICAL (21:15)
[2024-01-31 22:35] LABS: Bedside Glucose 107 mg/dL (74-106)
[2024-02-01 05:42] VITALS: BMI 37.3
[2024-02-01 05:43] VITALS: BP 141/77; PULSE 56; RESP 18; TEMP 36.6; O2SAT 94
[2024-02-01] MEDS: Lactulose 20 GM/30 ML UDC 10 GM PO ×3 (05:46→21:37)
[2024-02-01 07:00] LABS: Bedside Glucose 86 mg/dL (74-106)
[2024-02-01 07:32] VITALS: O2SAT 94
[2024-02-01 09:08] LABS: Pathologist Review Reviewed
[2024-02-01 09:35] VITALS: BP 131/67; PULSE 57; RESP 18; TEMP 36.5; O2SAT 92
[2024-02-01] MEDS: Lactobacillis Acidophilus 1 CAP PO (09:41)
[2024-02-01] MEDS: Pantoprazole Sodium 40 MG Tablet PO (09:41)
[2024-02-01] MEDS: rifAXIMin 550 MG Tablet PO ×2 (09:41→21:38)
[2024-02-01] MEDS: Spironolactone 25 MG Tablet 12.5 MG PO (09:41)
[2024-02-01] MEDS: 0.9% Saline Lock 10 ML Syringe IV (09:42)
[2024-02-01] MEDS: Furosemide 40 MG/4 ML Vial IV (09:43)
[2024-02-01] MEDS: Propranolol 10 MG Tablet 20 MG PO ×2 (09:44→21:38)
--- NOTE | 2024-02-01 10:02 | CASEMGMT ---
SW called Hospice to check on status of referral. SW was informed that Hospice called patient's parent's number that is listed on the face sheet twice and they are waiting on a return call. SW met with patient's parents who were both in the room. That phone number they are calling is at home. SW told them SW will have Hospice call the room phone to set up a meeting. SW called Hospice back and asked them to call the patient's room to set up meeting and gave them the phone number. Darlene PINEDA
--- NOTE | 2024-02-01 11:07 | RAD_ITS ---
STUDY: X-RAY CHEST REASON FOR EXAM: Female, 33 years old. Pulmonary edema TECHNIQUE: Single AP portable view of the chest. COMPARISON: Comparison is made with prior study dated January 30, 2024. FINDINGS: EKG electrodes are seen. Vascular congestion and CHF. There has been mild improvement as compared to prior study. Prominence of the azygos vein. There is no demonstrated pleural abnormality. There is moderate cardiac enlargement. Normal mediastinum and madie. Normal visualized pulmonary arteries. Normal visualized aortic arch and descending thoracic aorta. Normal visualized thoracic spine. Normal visualized ribs, clavicles, and shoulders. There is no demonstrated abnormality of the visualized soft tissue structures of the upper abdomen. RAD/Chest 1 View (Portable) IMPRESSION: Cardiomegaly and CHF. There has been improvement as compared to prior study. Electronically Signed: Nilson Balderas MD at 12:43 EDT ,
--- NOTE | 2024-02-01 12:19 | CASEMGMT ---
Hospice spoke with patient's family. The plan will be for patient to discharge home tomorrow on [facility]. Hospice will get equipment set up in their home and they will try and arrange transport for patient. Darlene PINEDA
[2024-02-01 15:16] VITALS: BP 131/74; PULSE 59; RESP 18; TEMP 36.4; O2SAT 94
--- NOTE | 2024-02-01 15:55 | CASEMGMT ---
KHUSHI called Pricilla Stanley patient's it service delivery manager at [employer] . KHUSHI let Pricilla know that Hospice spoke with patient and family today and the plan is to go home tomorrow on [facility]ospice. Pricilla thanked KHUSHI for the update. Darlene Bell [employer]
--- NOTE | 2024-02-01 16:41 | PCM.PN.HOSP ---
Reason for Visit Reason for Visit: Diagnoses Pleural effusion, not elsewhere classified (01/30/24) Acute respiratory failure with hypoxia (01/30/24) Hepatic failure, unspecified without coma (01/30/24) Unspecified cirrhosis of liver (01/30/24) Other specified abnormal findings of blood chemistry (01/30/24) Subjective Subjective Patient was seen and examined today, the patient and family met with hospice today in her room, patient is now on 4 L of oxygen although her chest x-ray today showed improvement in her CHF pattern. Objective Data Objective Data Vital Signs: Vital Signs Temp Pulse Resp BP Pulse Ox O2 Del Method O2 Flow Rate 97.6 F L 59 L 18 131/74 H 94 Nasal Cannula 4 02/01/24 15:16 02/01/24 15:16 02/01/24 15:16 02/01/24 15:16 02/01/24 15:16 02/01/24 15:30 02/01/24 15:30 Oxygen Flow Rate (L/min) 4 Oxygen Delivery Method Nasal Cannula Weight: 104.8 kg Body Mass Index (BMI) 37.3 Intake & Output: Intake and Output for Last 24 Hours 01/30/24 01/31/24 02/01/24 23:59 23:59 23:59 Intake Total 848 / 848 Balance 848 / 848 Lab / Micro Data 01/31/24 03:00 01/31/24 03:00 Labs: Laboratory Results - last 24 hr 01/31/24 03:00: Diff Path Review Reviewed 01/31/24 21:13: POC Glucose 107 H 02/01/24 05:45: POC Glucose 86 Micro: Microbiology 01/30/24 21:05 Mucosa - Nasopharyngeal SARS-CoV-2, Influenza & RSV (PCR) - Final Radiography Diagnostic Testing: Radiology Impression Chest X-Ray 02/01/24 11:07 IMPRESSION: Cardiomegaly and CHF. There has been improvement as compared to prior study. Electronically Signed: Nilson Balderas MD at 12:43 EDT , Rhythm Strip Rhythm Strip: Sinus bradycardia Rate: 58 Ectopy: None Physical Exam Narrative alert and no apparent distress Constitutional Narrative: Patient has signs of cognitive impairment, she does follow simple commands appropriately General Appearance: cooperative, well kempt and well developed Orientation / Consciousness: awake HEENT normocephalic, head/scalp atraumatic and moist oral mucous membranes Eyes PERRL, EOMs intact bilaterally and conjunctivae normal Neck supple, no JVD, thyroid normal and no carotid bruits General: trachea midline Resp normal respiratory effort, no retractions and no use of accessory muscles Resp Narrative: Breath sounds are diminished at both lung bases Auscultation: Negative for rales, rhonchi or wheezes Cardio regular rate, regular rhythm, S1 normal heart sound, S2 normal heart sound, no murmurs, no rub and no gallops GI normal to inspection, nondistended, normoactive bowel sounds, soft to palpation, non-tender and non-distended Extremity no clubbing, cyanosis or edema Skin no rashes or lesions noted General Skin Exam: no breakdown Neuro CN's II-XII intact bilaterally, no focal motor deficits and no sensory deficits noted Neuro Narrative: Patient has signs of cognitive impairment Sensorium / Orientation: awake and alert Psych Psych Narrative: Patient has signs of cognitive impairment Assessment & Plan Assessment/Plan (1) Elevated troponin: (2) Pleural effusion: PLAN: Plan 1. Hypoxia secondary to decompensated cirrhosis with anasarca-continue IV diuresis, I have elected to give her extra Lasix today and increase her Lasix to 60 mg every 12 hours, I also increased her spironolactone to 25 mg twice daily and gave her 1 dose of metolazone. Patient requires 4 L of oxygen at this time. #2 [id number] II [place]-cardiology has elected to treat the patient medically which I think is appropriate, patient's EF is preserved, she does have some mild pulmonary hypertension #3 chronic cirrhosis of the liver-complicates care, management, recovery, and prognosis #4 ascites secondary to #3-complicates care, management, recovery, and prognosis #5 MRDD-complicates care, management, recovery, and prognosis Total clinical time spent by myself addressing the patient's medical issues, reviewing all of her data, and collaborating with patient's care team: 35 minutes Charges/Coding Visit Charges Inpatient E&M: 86395 Subs Hosp L2
[2024-02-01] MEDS: metOLazone 5 MG Tablet PO (18:00)
[2024-02-01] MEDS: Furosemide 100 MG/10 ML Vial 60 MG IV (18:01)
[2024-02-01] MEDS: Spironolactone 25 MG Tablet PO (21:38)
[2024-02-01] MEDS: Sertraline 50 MG Tablet 25 MG PO (21:38)
[2024-02-01 21:49] VITALS: BP 128/69; PULSE 65; RESP 18; TEMP 37.1; O2SAT 95
[2024-02-01 23:35] LABS: Bedside Glucose 93 mg/dL (74-106)
[2024-02-02 03:00] VITALS: BP 130/63; PULSE 56; RESP 18; TEMP 36.4; O2SAT 94
[2024-02-02 03:23] VITALS: BMI 36.1
[2024-02-02] MEDS: Lactulose 20 GM/30 ML UDC 10 GM PO ×2 (05:49→14:13)
[2024-02-02 06:45] LABS: Bedside Glucose 94 mg/dL (74-106)
[2024-02-02 07:53] VITALS: O2SAT 96
[2024-02-02 09:02] VITALS: BP 139/80; PULSE 61; RESP 20; TEMP 36.9; O2SAT 96
[2024-02-02] MEDS: Propranolol 10 MG Tablet 20 MG PO (09:04)
[2024-02-02] MEDS: Aspirin 81 MG TAB.CHEW PO (09:05)
[2024-02-02] MEDS: Menthol/Lanolin/Calamine/Znox 113 GM Tube 1 APPLIC TOPICAL ×2 (09:05→14:13)
[2024-02-02] MEDS: rifAXIMin 550 MG Tablet PO (09:05)
[2024-02-02] MEDS: Furosemide 100 MG/10 ML Vial 60 MG IV (09:05)
[2024-02-02] MEDS: Lactobacillis Acidophilus 1 CAP PO (09:05)
[2024-02-02] MEDS: 0.9% Saline Lock 10 ML Syringe IV (09:05)
[2024-02-02] MEDS: Pantoprazole Sodium 40 MG Tablet PO (09:05)
[2024-02-02] MEDS: Spironolactone 25 MG Tablet PO (09:05)
--- NOTE | 2024-02-02 11:39 | PCM.DC ---
Discharge Instructions Diet Discharge Diet: No restrictions Activity Discharge Activity: Return to Normal Activity Weight Bearing Status: Full weight bearing Follow Up Care Test Results: Test results from this visit will be discussed in further detail at your follow-up appointment, if applicable. Discharge Plan Admission Admit Date/Time: 01/30/24 23:04 Primary Reason for Your Visit: hypoxia, anasarca Attending Provider: Brennen Hubbard Primary Care Provider: Mariela Kan Consulting Providers: Ryne Spivey; Zohra Araujo; Sylvester Kearney; Narcisa Jennings; Isadora Jay; Sury Gonzalez TOOL SETTER Instructions Additional Instructions / Restrictions: Increase your propranolol 20 mg to 1 twice a day, hospice will need to give you a prescription for this Discharge Orders/Prescriptions Prescriptions: New spironolactone 25 mg Tablet 25 mg PO BID Qty: 10 0RF oxycodone 5 mg tablet 5 mg PO Q4H PRN (Reason: pain) 3 Days Qty: 10 0RF furosemide 40 mg tablet 40 mg PO BID Qty: 10 0RF Continued Lactobacillus acidophilus 1 EACH capsule 1 ea PO DAILY michelle (Zingiber officinalis) 500 MG capsule 500 mg PO BID lorazepam 0.5 MG tablet 0.5 mg PO TID Qty: 7 0RF Rx Instructions: PRN sertraline 25 MG tablet 25 mg PO QHS pantoprazole 40 mg tablet,delayed release (DR/EC) 40 mg PO DAILY Patient Comments: TAKE 1 TABLET BY MOUTH TWICE DAILY BEFORE MEAL(S) lactulose [Constulose] 10 gram/15 mL solution 15 ml PO TID Patient Comments: TAKE 15ML BY MOUTH 3 TIMES DAILY. TAKE TO ACHIEVE FOR 2 TO 3 BOWEL MOVEMENTS DAILY. ADJUST DOSE BASED ON NUMBER OF BOWEL MOVEMENTS DAILY. (DME) blood-glucose meter [True Metrix Air Glucose Meter] Mis MISCELLANEOUS DAILY (DME) True Metrix Glucose Test Strip Strip 1 strip MISCELLANEOUS DAILY (DME) lancets [TRUEplus Lancets] 33 gauge [facility] MISCELLANEOUS DAILY Xifaxan 550 mg Tablet 550 mg PO BID 30 Days Qty: 60 0RF Changed propranolol 20 mg tablet 20 mg PO BID Qty: 1 0RF Patient Comments: TAKE 1 TABLET BY MOUTH TWICE DAILY Discontinued multivitamin with minerals 1 EACH tablet 1 ea PO DAILY glucose 4 gram tablet,chewable 16 g PO PRN PRN (Reason: diabetes mellitus) cefdinir 300 mg capsule 300 mg PO BID 5 Days Qty: 10 0RF Referrals / Follow Up: Mariela Kan MD [Primary Care Provider] - Disposition Disposition (needs filled in before D/C Order can be placed): Hospice in Home
--- NOTE | 2024-02-02 11:57 | DS.PCM_ITS ---
Providers Date of Admission: 01/30/24 Date of Discharge: 02/02/24 Primary Care Physician: Dr. Mariela Kan MD Consultations 01/31/24 02:43 Consult: Cardiology Routine Consulting Provider: Ryne Spivey Reason for Consult: Elevated troponin, possible NSTEMI EMERGENT Consult: No MD Notified: Yes Date Notified: 01/31/24 Time Notified: 02:44 Method of Notification: Text 01/31/24 09:43 Consult: Hospice / Palliative Care Routine Consulting Provider: [facility] Reason for Consult: End-stage liver disease, hypoxia EMERGENT Consult: No Notified: Yes Date Notified: 01/31/24 Time Notified: 09:43 Method of Notification: Answering Service Reason For Visit: DECOMPENSATED CIRRHOSIS, BL PLEURAL EFFUSIONS/ Diagnosis Discharge Diagnosis (1) Elevated troponin: Status: Acute Code(s): R79.89 - Other specified abnormal findings of blood chemistry (2) Pleural effusion: Status: Acute Code(s): J90 - Pleural effusion, not elsewhere classified Plan 1. Hypoxia secondary to decompensated cirrhosis with anasarca-continue IV diuresis, I have elected to give her extra Lasix today and increase her Lasix to 60 mg every 12 hours, I also increased her spironolactone to 25 mg twice daily and gave her 1 dose of metolazone. Patient requires 4 L of oxygen at this time. #2 [id number] II [place]-cardiology has elected to treat the patient medically which I think is appropriate, patient's EF is preserved, she does have some mild pulmonary hypertension #3 chronic cirrhosis of the liver-complicates care, management, recovery, and prognosis #4 ascites secondary to #3-complicates care, management, recovery, and prognosis #5 MRDD-complicates care, management, recovery, and prognosis Total clinical time spent by myself addressing the patient's medical issues, r eviewing all of her data, and collaborating with patient's care team: 35 minutes Medications at Discharge Home Medications Lactobacillus acidophilus 500 million cell capsule 1 ea PO DAILY antirejection 01/08/20 michelle (Zingiber officinalis) 500 mg capsule 500 mg PO BID supplement 01/08/20 lorazepam 0.5 mg tablet 0.5 mg PO TID anxiety #7 tabs 01/08/20 sertraline 25 mg tablet 25 mg PO QHS depression 02/12/21 lactulose 10 gram/15 mL oral solution (Constulose) 15 ml PO TID liver cirrhosis 11/08/22 pantoprazole 40 mg tablet,delayed release 40 mg PO DAILY gi 11/08/22 blood sugar diagnostic (True Metrix Glucose Test Strip) 01/23/24 blood-glucose meter (True Metrix Air Glucose Meter) 01/23/24 lancets 33 gauge (TRUEplus Lancets) 01/23/24 rifaximin 550 mg tablet (Xifaxan) 550 mg PO BID diarrhea 30 days #60 tabs 01/25/24 furosemide 40 mg tablet 40 mg PO BID #10 tabs 02/02/24 oxycodone 5 mg tablet 5 mg PO Q4H PRN pain 3 days #10 tabs 02/02/24 propranolol 20 mg tablet 20 mg PO BID esophageal varices #1 TAB 02/02/24 spironolactone 25 mg tablet 25 mg PO BID #10 tabs 02/02/24 Hospital Course Operations None Procedures 2-D Echocardiogram Summary of Care Provided Minutes Spent on Discharge: 32 Hospital Course: This 33-year-old white female with a history of end-stage liver disease with cirrhosis was seen in the emergency room at [facility] with complaints of increasing shortness of breath. EMS noted a pulse ox of 85% on room air. Workup in the emergency room included a chest x-ray which showed cardiomegaly and possible pleural effusion and evidence of pulmonary edema. Patient required supplemental oxygen due to hypoxia, patient was felt to be in decompensated cirrhosis with anasarca, she was admitted to PCU and placed on di uresis. Patient's cardiac enzymes were elevated and she was seen by cardiology who recommended medical management only. Patient's family requested a hospice consultation, instead of performing it as an outpatient, I had hospice come to the hospital talk with the patient's family, patient's family agreed to participate with hospice and on 02/02/2024, patient was seen and examined:alert and no apparent distress Constitutional Narrative: Patient has signs of cognitive impairment, she does follow simple commands appropriately General Appearance: cooperative, well kempt and well developed Orientation / Consciousness: awake HEENT normocephalic, head/scalp atraumatic and moist oral mucous membranes Eyes PERRL, EOMs intact bilaterally and conjunctivae normal Neck supple, no JVD, thyroid normal and no carotid bruits General: trachea midline Resp normal respiratory effort, no retractions and no use of accessory muscles Resp Narrative: Breath sounds are diminished at both lung bases Auscultation: Negative for rales, rhonchi or wheezes Cardio regular rate, regular rhythm, S1 normal heart sound, S2 normal heart sound, no murmurs, no rub and no gallops GI normal to inspection, nondistended, normoactive bowel sounds, soft to palpation, non-tender and non-distended Extremity no clubbing, cyanosis or edema Skin no rashes or lesions noted General Skin Exam: no breakdown Neuro CN's II-XII intact bilaterally, no focal motor deficits and no sensory deficits noted Neuro Narrative: Patient has signs of cognitive impairment Sensorium / Orientation: awake and alert Psych Psych Narrative: Patient has signs of cognitive impairment On 02/02/2024, patient was seen and examined and felt to be in stable condition for discharge home with hospice care. Weight / BMI Weight Weight: 101.7 kg Body Mass Index (BMI) 36.1 ABG / Lab / Microbiology Data 01/31/24 03:00 01/31/24 03:00 Laboratory: Laboratory Results - last 24 hr 02/01/24 23:15: POC Glucose 93 02/02/24 05:51: POC Glucose 94 Microbiology: Microbiology 01/30/24 21:05 Mucosa - Nasopharyngeal SARS-CoV-2, Influenza & RSV (PCR) - Final Radiography Diagnostic Testing: Radiology Impression Chest X-Ray 02/01/24 11:07 IMPRESSION: Cardiomegaly and CHF. There has been improvement as compared to prior study. Electronically Signed: Nilson Balderas MD at 12:43 EDT , D/C Instructions Discharge Diet: No restrictions Weight Bearing Status: Full weight bearing Meaningful Use Info Meaningful Use Diagnoses (Choose all that apply): None applicable Discharge Plan Admission Admit Date/Time: 01/30/24 23:04 Primary Reason for Your Visit: hypoxia, anasarca Attending Provider: Brennen Hubbard Primary Care Provider: Mariela Kan Consulting Providers: Ryne Spivey; Zohra Araujo; Sylvester Kearney; Narcisa Jennings; Isadora Jay; Sury Gonzalez TROUBLE OPERATOR Instructions Additional Instructions / Restrictions: Increase your propranolol 20 mg to 1 twice a day, hospice will need to give you a prescription for this Discharge Orders/Prescriptions Prescriptions: New spironolactone 25 mg Tablet 25 mg PO BID Qty: 10 0RF oxycodone 5 mg tablet 5 mg PO Q4H PRN (Reason: pain) 3 Days Qty: 10 0RF furosemide 40 mg tablet 40 mg PO BID Qty: 10 0RF Continued Lactobacillus acidophilus 1 EACH capsule 1 ea PO DAILY michelle (Zingiber officinalis) 500 MG capsule 500 mg PO BID lorazepam 0.5 MG tablet 0.5 mg PO TID Qty: 7 0RF Rx Instructions: PRN sertraline 25 MG tablet 25 mg PO QHS pantoprazole 40 mg tablet,delayed release (DR/EC) 40 mg PO DAILY Patient Comments: TAKE 1 TABLET BY MOUTH TWICE DAILY BEFORE MEAL(S) lactulose [Constulose] 10 gram/15 mL solution 15 ml PO TID Patient Comments: TAKE 15ML BY MOUTH 3 TIMES DAILY. TAKE TO ACHIEVE FOR 2 TO 3 BOWEL MOVEMENTS DAILY. ADJUST DOSE BASED ON NUMBER OF BOWEL MOVEMENTS DAILY. (DME) blood-glucose meter [True Metrix Air Glucose Meter] Misc MISCELLANEOUS DAILY (DME) True Metrix Glucose Test Strip Strip 1 strip MISCELLANEOUS DAILY (DME) lancets [TRUEplus Lancets] 33 gauge misc MISCELLANEOUS DAILY Xifaxan 550 mg Tablet 550 mg PO BID 30 Days Qty: 60 0RF Changed propranolol 20 mg tablet 20 mg PO BID Qty: 1 0RF Patient Comments: TAKE 1 TABLET BY MOUTH TWICE DAILY Discontinued multivitamin with minerals 1 EACH tablet 1 ea PO DAILY glucose 4 gram tablet,chewable 16 g PO PRN PRN (Reason: diabetes mellitus) cefdinir 300 mg capsule 300 mg PO BID 5 Days Qty: 10 0RF Referrals / Follow Up: Mariela Kan MD [Primary Care Provider] - Disposition Disposition (needs filled in before D/C Order can be placed): Hospice in Home Charges/Coding Visit Charges Inpatient E&M: 14000 Disch Hosp >30min
--- NOTE | 2024-02-02 12:21 | PHA.DC.MR.R ---
Pharmacy MD Med Reconciliation Pharmacy Service has performed discharge medication reconciliation for this patient. The patient's discharge medication list was reviewed for discrepancies and discrepancies were resolved. Medications at Discharge Home Medications Lactobacillus acidophilus 500 million cell capsule 1 ea PO DAILY antirejection 01/08/20 michelle (Zingiber officinalis) 500 mg capsule 500 mg PO BID supplement 01/08/20 lorazepam 0.5 mg tablet 0.5 mg PO TID #7 tabs 01/08/20 sertraline 25 mg tablet 25 mg PO QHS depression 02/12/21 lactulose 10 gram/15 mL oral solution (Constulose) 15 ml PO TID liver cirrhosis 11/08/22 pantoprazole 40 mg tablet,delayed release 40 mg PO DAILY gi 11/08/22 blood sugar diagnostic (True Metrix Glucose Test Strip) 01/23/24 blood-glucose meter (True Metrix Air Glucose Meter) 01/23/24 lancets 33 gauge (TRUEplus Lancets) 01/23/24 rifaximin 550 mg tablet (Xifaxan) 550 mg PO BID 30 days #60 tabs 01/25/24 furosemide 40 mg tablet 40 mg PO BID #10 tabs 02/02/24 oxycodone 5 mg tablet 5 mg PO Q4H PRN pain 3 days #10 tabs 02/02/24 propranolol 20 mg tablet 20 mg PO BID esophageal varices #1 TAB 02/02/24 spironolactone 25 mg tablet 25 mg PO BID #10 tabs 02/02/24
--- NOTE | 2024-02-02 13:33 | CASEMGMT ---
Hospice will be picking patient up today at 14:30. KHUSHI faxed d/c instructions to [facility]. Darlene PINEDA
[2024-02-02 14:23] VITALS: BP 125/66; PULSE 62; RESP 18; TEMP 36.9; O2SAT 96
== END 2024-02-02 14:41 | disposition hospice, home (50) ==
LOC: ED 23:03 → PCU 23:28
PROVIDERS: Admitting Provider Family Medicine; Emergency Provider Emergency Medicine; PCP Internal Medicine; Visit Provider Internal Medicine
DX: K74.60 Unspecified cirrhosis of liver (principal); J96.01 Acute respiratory failure with hypoxia; D61.818 Other pancytopenia; E75.22 Gaucher disease; D51.9 Vitamin B12 deficiency anemia, unspecified; D68.9 Coagulation defect, unspecified; I21.A1 Myocardial infarction type 2; I27.20 Pulmonary hypertension, unspecified; K76.6 Portal hypertension; I85.00 Esophageal varices without bleeding; J90 Pleural effusion, not elsewhere classified; E16.2 Hypoglycemia, unspecified; K21.9 Gastro-esophageal reflux disease without esophagitis; E87.70 Fluid overload, unspecified; D69.6 Thrombocytopenia, unspecified; R18.8 Other ascites
CPT/HCPCS: 36415; 70450; 71045; 71046; 71275; 74177; 80048; 80053; 80061; 80076; 82140; 82962; 83036; 83605; 83690; 83735; 84100; 84439; 84443; 84484; 85025; 85610; 85730; 87631; 93005; 93308; 97802; 99285; P9047; Q9967; A4216; J1940